=== PATIENT | female | born 1935 | race Caucasian/White ===

== ENCOUNTER → 2016-07-04 | Outpatient (CLI) | payer OTHER ==
[~2016-07-04] MED LIST: ASPI81TA27 PO; LEVO112T4 PO; LISI-646 PO; NOR5T PO
[2016-07-04 09:26] LABS: Basophils # (auto) 0 uL; Basophils % (auto) 0.7 % (0.0-2.0); Eosinophils # (auto) 0.2 uL; Eosinophils % (auto) 3.8 % (0.0-7.0); Hematocrit 44.7 % (36.0-46.0); Hemoglobin 15.2 g/dL (12.2-16.2); Lymphocytes # (auto) 1.9 uL; Lymphocytes % (auto) 31.4 % (10.0-50.0); Mean Corpuscular Hemoglobin 32.4 pg (28.0-32.0); Mean Corpuscular Hgb Conc. 34.1 g/dL (32.0-36.0); Monocytes # (auto) 0.6 uL; Monocytes % (auto) 10.5 % (0.0-12.0); Neutrophils # (auto) 3.2 uL; Neutrophils % (auto) 53.6 % (37.0-80.0); Platelet Count (auto) 288 10^3/uL (140-450); Red Cell Distribution Width 13.4 % (11.6-16.0)
[2016-07-04 09:49] LABS: Urine Bilirubin Negative (Negative); Urine Blood TRACE /uL (Negative); Urine Color Yellow (Yellow); Urine Glucose Normal (Normal); Urine Ketone Negative (Negative); Urine Mucus FEW (None Seen); Urine Nitrite Negative (Negative); Urine RBC 5 /hpf (0 - 4); Urine Squamous Epithelial Cell FEW /hpf (<5); Urine Urobilinogen Normal (Negative); Urine pH 7.5 (5.0-8.0)
[2016-07-04 09:59] LABS: Albumin 3.6 g/dL (3.4-5.0); BUN/Creatinine Ratio 17.4; Bilirubin, Total 0.8 mg/dL (0.2-1.0); Potassium 4.2 mmol/L (3.5-5.1); Total Protein 6.7 g/dL (6.4-8.2)
== END | disposition home or self-care (01) ==
LOC: LAB 08:19
DX: I10 Essential (primary) hypertension (principal)
CPT/HCPCS: 36415; 80053; 80061; 81001; 84443; 85025

== ENCOUNTER → 2017-01-16 | Outpatient (CLI) | payer OTHER ==
[~2017-01-16] MED LIST changes: +HCTZ25T GT; -NOR5T PO
[2017-01-16 08:43] LABS: Urine RBC None Seen /hpf (0 - 4)
[2017-01-16 08:58] LABS: Basophils # (auto) 0.1 uL; Basophils % (auto) 1.1 % (0.0-2.0); Eosinophils # (auto) 0.1 uL; Eosinophils % (auto) 2.5 % (0.0-7.0); Hematocrit 41.9 % (36.0-46.0); Hemoglobin 14.2 g/dL (12.2-16.2); Lymphocytes # (auto) 1.8 uL; Mean Corpuscular Hemoglobin 32.6 pg (28.0-32.0); Mean Corpuscular Hgb Conc. 33.9 g/dL (32.0-36.0); Mean Corpuscular Volume 96.2 fL (80.0-100.0); Mean Platelet Volume 6.6 fL (7.4-10.4); Monocytes # (auto) 0.6 uL; Monocytes % (auto) 10.1 % (0.0-12.0); Neutrophils # (auto) 3.1 uL; Neutrophils % (auto) 55.3 % (37.0-80.0); Nucleated Red Blood Cells % 0.1 %; Platelet Count (auto) 310 10^3/uL (140-450); Red Cell Distribution Width 13.7 % (11.6-16.0); White Blood Cell 5.7 10^3/uL (4.4-10.8)
[2017-01-16 09:19] LABS: Albumin 3.5 g/dL (3.4-5.0); BUN/Creatinine Ratio 25.7; Bilirubin, Total 0.6 mg/dL (0.2-1.0); Potassium 3.9 mmol/L (3.5-5.1); Total Protein 6.5 g/dL (6.4-8.2)
[2017-01-16 09:33] LABS: Urine Bilirubin Negative (Negative); Urine Blood Negative /uL (Negative); Urine Color Yellow (Yellow); Urine Glucose Normal (Normal); Urine Ketone Negative (Negative); Urine Mucus FEW (None Seen); Urine Nitrite Negative (Negative); Urine Squamous Epithelial Cell FEW /hpf (<5); Urine Urobilinogen Normal (Negative); Urine pH 6.5 (5.0-8.0)
== END | disposition home or self-care (01) ==
LOC: LAB 08:26
PROVIDERS: ATTEND Internal Medicine
DX: I12.9 Hypertensive chronic kidney disease with stage 1 through stage 4 chronic kidney disease, or unspecified chronic kidney disease (principal); N18.2 Chronic kidney disease, stage 2 (mild); E89.0 Postprocedural hypothyroidism; Z98.890 Other specified postprocedural states
CPT/HCPCS: 36415; 80053; 80061; 81001; 84443; 85025

== ENCOUNTER → 2017-07-06 | Outpatient (CLI) | payer OTHER | END | disposition home or self-care (01) | LOC: LAB 09:56 | PROVIDERS: ATTEND Internal Medicine | DX: I10 Essential (primary) hypertension (principal); M81.0 Age-related osteoporosis without current pathological fracture | CPT/HCPCS: 36415; 82306; 84132; 84439; 84443 ==

== ENCOUNTER → 2017-07-13 | Outpatient (CLI) | payer OTHER ==
[2017-07-13 09:04] LABS: Basophils # (auto) 0 uL; Eosinophils # (auto) 0.1 uL; Hematocrit 43.7 % (36.0-46.0); Hemoglobin 14.7 g/dL (12.2-16.2); Lymphocytes % (auto) 38.6 % (10.0-50.0); Mean Corpuscular Hemoglobin 32.4 pg (28.0-32.0); Mean Corpuscular Hgb Conc. 33.6 g/dL (32.0-36.0); Mean Corpuscular Volume 96.2 fL (80.0-100.0); Monocytes # (auto) 0.5 uL; Monocytes % (auto) 10.3 % (0.0-12.0); Neutrophils # (auto) 2.4 uL; Neutrophils % (auto) 48.1 % (37.0-80.0); Nucleated Red Blood Cells % 0.1 %; Platelet Count (auto) 237 10^3/uL (140-450); Red Blood Cells 4.54 10^6/uL (4.0-5.20); Red Cell Distribution Width 13.6 % (11.8-14.3); White Blood Cell 5.1 10^3/uL (4.4-10.8)
[2017-07-13 09:10] LABS: Albumin 3.4 g/dL (3.4-5.0); BUN/Creatinine Ratio 21.4; Bilirubin, Direct 0.1 mg/dL (0-0.2); Bilirubin, Total 0.7 mg/dL (0.2-1.0); Calcium 9.2 mg/dL (8.5-10.1); Potassium 4.3 mmol/L (3.5-5.1); Total Protein 6.4 g/dL (6.4-8.2)
== END | disposition home or self-care (01) ==
LOC: LAB 08:28
PROVIDERS: ATTEND Specialist
DX: I10 Essential (primary) hypertension (principal); D64.9 Anemia, unspecified; E78.00 Pure hypercholesterolemia, unspecified; R94.5 Abnormal results of liver function studies
CPT/HCPCS: 36415; 80048; 80061; 80076; 85025

== ENCOUNTER → 2017-09-29 | Outpatient (CLI) | payer OTHER ==
[~2017-09-29] MED LIST changes: +GABA300C10 PO; +HYDR25TA4 PO; +RIV15T PO
[2017-09-29 12:50] LABS: INR 1.22 (0.9-1.15); Partial Thromboplastin Time 40.3 sec (23.78-33.04); Prothrombin Time 12.9 sec (9.27-12.13)
[2017-09-29 13:11] LABS: Basophils # (auto) 0.1 uL; Basophils % (auto) 0.9 % (0.0-2.0); Eosinophils # (auto) 0.1 uL; Eosinophils % (auto) 1.8 % (0.0-7.0); Hematocrit 43.7 % (36.0-46.0); Hemoglobin 14.9 g/dL (12.2-16.2); Lymphocytes # (auto) 1.8 uL; Lymphocytes % (auto) 32.7 % (10.0-50.0); Mean Corpuscular Hemoglobin 33.5 pg (28.0-32.0); Mean Corpuscular Hgb Conc. 34.2 g/dL (32.0-36.0); Mean Corpuscular Volume 97.9 fL (80.0-100.0); Monocytes # (auto) 0.5 uL; Monocytes % (auto) 9.5 % (0.0-12.0); Neutrophils # (auto) 3.1 uL; Neutrophils % (auto) 55.1 % (37.0-80.0); Platelet Count (auto) 273 10^3/uL (140-450); Red Blood Cells 4.46 10^6/uL (4.0-5.20); Red Cell Distribution Width 14.2 % (11.8-14.3); White Blood Cell 5.7 10^3/uL (4.4-10.8)
[2017-09-29 13:49] LABS: Urine Bacteria FEW /hpf (None Seen); Urine Blood Negative /uL (Negative); Urine Specific Gravity 1.017 (1.001-1.035); Urine WBC 27 /hpf (0 - 5)
[2017-09-29 14:01] LABS: BUN/Creatinine Ratio 15.3; Calcium 8.8 mg/dL (8.5-10.1); Potassium 3.7 mmol/L (3.5-5.1)
== END | disposition home or self-care (01) ==
LOC: LAB 10:34
PROVIDERS: ATTEND Specialist
DX: I12.9 Hypertensive chronic kidney disease with stage 1 through stage 4 chronic kidney disease, or unspecified chronic kidney disease (principal); N18.2 Chronic kidney disease, stage 2 (mild); D63.1 Anemia in chronic kidney disease; R31.9 Hematuria, unspecified; R79.1 Abnormal coagulation profile; E78.00 Pure hypercholesterolemia, unspecified
CPT/HCPCS: 36415; 80048; 81001; 85025; 85610; 85730

== ENCOUNTER 2017-10-14 11:35 | Inpatient (IN) | payer OTHER ==
[~2017-10-14] VITALS: Ht 172.7 cm; Wt 79.4 kg
[~2017-10-14 11:35] MED LIST changes: -GABA300C10 PO; -HYDR25TA4 PO; -RIV15T PO
[2017-10-14] MEDS ORDERED: LIDOCAINE 2%HCL (LOCAL ANESTH.) INJ 20ML MDV ONE (11:47)
[2017-10-14] MEDS ORDERED: HEPARIN IN NS 1000Units/500mL 0 ML ONE (11:47)
[2017-10-14] MEDS ORDERED: fentaNYL CITRATE 100 MCG/2 ML VL ONE (13:48)
[2017-10-14] MEDS ORDERED: MIDAZOLAM HCL 1MG/1ML-2 ML VIAL ONE (13:48)
[2017-10-14] MEDS ORDERED: DOXYCYCLINE 100MG/250ML 250 ML IV ONE (14:00)
[2017-10-14] MEDS ORDERED: MORPHINE SULF INJ 2 MG/ML SYRINGE 1ML IV PRN (15:30)
[2017-10-14] MEDS ORDERED: ACETAMINOPHEN 500 MG TAB PO PRN (15:30)
[2017-10-14] MEDS ORDERED: ONDANSETRON HCL 4 MG/2 ML VIAL IV PRN (15:30)
[2017-10-14] MEDS ORDERED: NITROGLYCERIN 0.4 MG SL TAB SL PRN (15:30)
[2017-10-14] MEDS ORDERED: HYDR25TA4 PO (15:34)
[2017-10-14] MEDS ORDERED: RIV15T PO (15:34)
[2017-10-14] MEDS ORDERED: GABA300C10 PO (15:34)
[2017-10-14] MEDS: HYDROcodone-ACET 5/325MG TAB PO PRN ×2 (16:06→19:59)
[2017-10-14 16:30] VITALS: BP 159/66
[2017-10-14 17:18] VITALS: BP 159/66
[2017-10-14] MEDS ORDERED: RIVAROXABAN 15 MG TAB PO SCH (18:00)
[2017-10-14 22:00] VITALS: BP 139/61
[2017-10-14] MEDS: SODIUM CHLOR 0.9% PF (SALINE LOCK) 10ML VIAL/SYR IV SCH (22:29)
[2017-10-14] MEDS: GABAPENTIN 300 MG CAP PO SCH (22:29)
[2017-10-15 05:30] VITALS: BP 132/64
[2017-10-15] MEDS: SODIUM CHLOR 0.9% PF (SALINE LOCK) 10ML VIAL/SYR IV SCH (06:13)
[2017-10-15 06:17] LABS: BUN/Creatinine Ratio 15.5; Calcium 8.1 mg/dL (8.5-10.1)
[2017-10-15] MEDS ORDERED: LEVOTHYROXINE SODIUM 112 MCG TAB PO SCH (07:00)
[2017-10-15] MEDS ORDERED: SOTALOL HCL 80 MG TAB PO ONE (08:15)
[2017-10-15 09:00] VITALS: BP 130/68
[2017-10-15] MEDS ORDERED: HCTZ 25 MG TAB PO SCH (10:00)
[2017-10-15] MEDS: GABAPENTIN 300 MG CAP PO SCH (10:08)
== END 2017-10-15 12:01 | disposition home or self-care (01) | DRG 274 ==
LOC: CATH 11:35 → TELE-CENTR 11:36
PROVIDERS: ADMIT Specialist; ATTEND Specialist
PROC: 02583ZZ Destruction of Conduction Mechanism, Percutaneous Approach (ICD-10-PCS; principal; 2017-10-14)
PROC: 02K83ZZ Map Conduction Mechanism, Percutaneous Approach (ICD-10-PCS; 2017-10-14)
PROC: 4A023FZ Measurement of Cardiac Rhythm, Percutaneous Approach (ICD-10-PCS; 2017-10-14)
PROC: 4A0234Z Measurement of Cardiac Electrical Activity, Percutaneous Approach (ICD-10-PCS; 2017-10-14)
PROC: 4B02XSZ Measurement of Cardiac Pacemaker, External Approach (ICD-10-PCS; 2017-10-14)
DX: I48.92 Unspecified atrial flutter (principal); I10 Essential (primary) hypertension; E03.9 Hypothyroidism, unspecified; I48.0 Paroxysmal atrial fibrillation; Z79.899 Other long term (current) drug therapy; Z95.0 Presence of cardiac pacemaker; Z88.0 Allergy status to penicillin; Z88.2 Allergy status to sulfonamides; Z82.49 Family history of ischemic heart disease and other diseases of the circulatory system
CPT/HCPCS: 36415; 80048; 99152; 99153; J2250; J3490

== ENCOUNTER → 2018-02-16 | Outpatient (CLI) | payer OTHER ==
[~2018-02-16] MED LIST changes: -ASPI81TA27 PO; +GABA300C10 PO; -HCTZ25T GT; +HYDR25TA4 PO; -LISI-646 PO; +RIV15T PO
[2018-02-16 09:46] LABS: Basophils # (auto) 0.1 uL; Basophils % (auto) 1.1 % (0.0-2.0); Eosinophils # (auto) 0.1 uL; Eosinophils % (auto) 1.7 % (0.0-7.0); Hematocrit 44.5 % (36.0-46.0); Hemoglobin 15.3 g/dL (12.2-16.2); Lymphocytes % (auto) 35.4 % (10.0-50.0); Mean Corpuscular Hemoglobin 33.6 pg (28.0-32.0); Mean Corpuscular Hgb Conc. 34.4 g/dL (32.0-36.0); Mean Corpuscular Volume 97.6 fL (80.0-100.0); Monocytes # (auto) 0.6 uL; Neutrophils # (auto) 2.9 uL; Neutrophils % (auto) 51.8 % (37.0-80.0); Nucleated Red Blood Cells % 0.1 %; Platelet Count (auto) 273 10^3/uL (140-450); Red Blood Cells 4.56 10^6/uL (4.0-5.20); Red Cell Distribution Width 13.9 % (11.8-14.3); White Blood Cell 5.6 10^3/uL (4.4-10.8)
[2018-02-16 10:05] LABS: Potassium 4.3 mmol/L (3.5-5.1)
[2018-02-16 10:12] LABS: Albumin 3.3 g/dL (3.4-5.0); BUN/Creatinine Ratio 16.2; Calcium 8.5 mg/dL (8.5-10.1)
[2018-02-16 10:34] LABS: Bilirubin, Direct 0.2 mg/dL (0-0.2); Bilirubin, Total 0.9 mg/dL (0.2-1.0); Total Protein 6.5 g/dL (6.4-8.2)
== END | disposition home or self-care (01) ==
LOC: LAB 09:10
PROVIDERS: ATTEND Specialist
DX: I10 Essential (primary) hypertension (principal); D64.9 Anemia, unspecified; E78.2 Mixed hyperlipidemia; R94.5 Abnormal results of liver function studies
CPT/HCPCS: 36415; 80048; 80061; 80076; 85025

== ENCOUNTER → 2018-06-18 | Outpatient (CLI) | payer OTHER ==
[2018-06-18 10:27] LABS: Basophils # (auto) 0.1 uL; Basophils % (auto) 1.3 % (0.0-2.0); Eosinophils # (auto) 0.1 uL; Eosinophils % (auto) 2.6 % (0.0-7.0); Hematocrit 44.3 % (36.0-46.0); Lymphocytes # (auto) 1.4 uL; Mean Corpuscular Hemoglobin 33.6 pg (28.0-32.0); Mean Corpuscular Hgb Conc. 33.8 g/dL (32.0-36.0); Mean Corpuscular Volume 99.2 fL (80.0-100.0); Monocytes # (auto) 0.5 uL; Neutrophils # (auto) 2.3 uL; Neutrophils % (auto) 52.1 % (37.0-80.0); Nucleated Red Blood Cells % 0.1 %; Platelet Count (auto) 206 10^3/uL (140-450); Red Blood Cells 4.47 10^6/uL (4.0-5.20); Red Cell Distribution Width 13.8 % (11.8-14.3); White Blood Cell 4.4 10^3/uL (4.4-10.8)
[2018-06-18 13:07] LABS: Potassium 4.3 mmol/L (3.5-5.1)
[2018-06-18 13:24] LABS: Albumin 3.2 g/dL (3.4-5.0); BUN/Creatinine Ratio 12.5; Bilirubin, Direct 0.1 mg/dL (0-0.2); Bilirubin, Total 0.6 mg/dL (0.2-1.0); Calcium 8.8 mg/dL (8.5-10.1)
== END | disposition home or self-care (01) ==
LOC: LAB 09:26
PROVIDERS: ATTEND Specialist
DX: E11.9 Type 2 diabetes mellitus without complications (principal); I10 Essential (primary) hypertension; E78.5 Hyperlipidemia, unspecified; E03.9 Hypothyroidism, unspecified; D64.9 Anemia, unspecified; R94.5 Abnormal results of liver function studies
CPT/HCPCS: 36415; 80048; 80061; 80076; 83036; 84443; 85025

== ENCOUNTER → 2018-09-16 | Outpatient (CLI) | payer OTHER | END | disposition home or self-care (01) | LOC: LAB 09:50 | PROVIDERS: ATTEND Podiatrist Foot & Ankle Surgery | DX: I73.9 Peripheral vascular disease, unspecified (principal) | CPT/HCPCS: 36415; 85379 ==

== ENCOUNTER → 2018-10-12 | Outpatient (CLI) | payer OTHER ==
[2018-10-12 09:13] LABS: Basophils # (auto) 0 uL; Basophils % (auto) 0.9 % (0.0-2.0); Eosinophils # (auto) 0.1 uL; Hematocrit 42.6 % (36.0-46.0); Hemoglobin 14.3 g/dL (12.2-16.2); Lymphocytes % (auto) 42.6 % (10.0-50.0); Mean Corpuscular Hemoglobin 32.9 pg (28.0-32.0); Mean Corpuscular Hgb Conc. 33.5 g/dL (32.0-36.0); Mean Corpuscular Volume 98.3 fL (80.0-100.0); Monocytes # (auto) 0.4 uL; Monocytes % (auto) 9.8 % (0.0-12.0); Neutrophils # (auto) 2.1 uL; Neutrophils % (auto) 44.7 % (37.0-80.0); Platelet Count (auto) 209 10^3/uL (140-450); Red Blood Cells 4.34 10^6/uL (4.0-5.20); Red Cell Distribution Width 13.1 % (11.8-14.3); White Blood Cell 4.6 10^3/uL (4.4-10.8)
[2018-10-12 09:47] LABS: Albumin 3.4 g/dL (3.4-5.0); Calcium 8.8 mg/dL (8.5-10.1); Potassium 4.6 mmol/L (3.5-5.1)
[2018-10-12 09:53] LABS: Bilirubin, Direct 0.2 mg/dL (0-0.2); Bilirubin, Total 0.8 mg/dL (0.2-1.0); Total Protein 6.3 g/dL (6.4-8.2)
== END | disposition home or self-care (01) ==
LOC: LAB 08:46
PROVIDERS: ATTEND Specialist
DX: E78.5 Hyperlipidemia, unspecified (principal); E03.9 Hypothyroidism, unspecified; E11.9 Type 2 diabetes mellitus without complications; I10 Essential (primary) hypertension; D64.9 Anemia, unspecified; R94.5 Abnormal results of liver function studies
CPT/HCPCS: 36415; 80048; 80061; 80076; 83036; 84443; 85025

== ENCOUNTER → 2018-12-23 | Outpatient (CLI) | payer OTHER ==
[2018-12-23 12:34] LABS: Urine Bacteria FEW /hpf (None Seen); Urine Blood Negative /uL (Negative); Urine Specific Gravity 1.016 (1.001-1.035); Urine WBC 3 /hpf (0 - 5)
[2018-12-23 13:08] LABS: Free T4 (Free Thyroxine) 1.71 ng/dL (0.89-1.76)
[2018-12-23 13:09] LABS: Folate (Folic Acid) 14.42 ng/mL (5.38-24)
[2018-12-24 05:07] LABS: RPR Non Reactive (Non Reactive)
== END | disposition home or self-care (01) ==
LOC: LAB 11:56
PROVIDERS: ATTEND Internal Medicine
DX: R25.2 Cramp and spasm (principal); R43.8 Other disturbances of smell and taste
CPT/HCPCS: 36415; 81001; 82550; 82607; 82746; 84439; 84443; 86592

== ENCOUNTER → 2019-02-16 | Outpatient (CLI) | payer OTHER ==
[2019-02-16 11:03] LABS: Basophils # (auto) 0.1 uL; Basophils % (auto) 1.2 % (0.0-2.0); Eosinophils # (auto) 0.1 uL; Eosinophils % (auto) 2.4 % (0.0-7.0); Hemoglobin 14.3 g/dL (12.2-16.2); Lymphocytes # (auto) 1.4 uL; Lymphocytes % (auto) 30.6 % (10.0-50.0); Mean Corpuscular Hemoglobin 33.4 pg (28.0-32.0); Mean Corpuscular Hgb Conc. 33.4 g/dL (32.0-36.0); Mean Corpuscular Volume 100.2 fL (80.0-100.0); Monocytes # (auto) 0.5 uL; Monocytes % (auto) 11.4 % (0.0-12.0); Neutrophils # (auto) 2.6 uL; Neutrophils % (auto) 54.4 % (37.0-80.0); Nucleated Red Blood Cells % 0.1 %; Platelet Count (auto) 229 10^3/uL (140-450); Red Blood Cells 4.29 10^6/uL (4.0-5.20); Red Cell Distribution Width 14.2 % (11.8-14.3); White Blood Cell 4.7 10^3/uL (4.4-10.8)
[2019-02-16 11:31] LABS: Albumin 3.5 g/dL (3.4-5.0); BUN/Creatinine Ratio 11.9; Calcium 8.7 mg/dL (8.5-10.1); Potassium 4.6 mmol/L (3.5-5.1)
[2019-02-16 11:33] LABS: Bilirubin, Total 0.7 mg/dL (0.2-1.0); Total Protein 6.5 g/dL (6.4-8.2)
== END | disposition home or self-care (01) ==
LOC: LAB 10:36
PROVIDERS: ATTEND Internal Medicine
DX: E03.9 Hypothyroidism, unspecified (principal)
CPT/HCPCS: 36415; 80053; 83880; 84439; 84443; 85025; 85652

== ENCOUNTER → 2019-04-05 | Outpatient (CLI) | payer OTHER ==
[2019-04-05 10:13] LABS: Basophils # (auto) 0.1 uL; Eosinophils # (auto) 0.1 uL; Hemoglobin 15.6 g/dL (12.2-16.2); Mean Corpuscular Hemoglobin 34.1 pg (28.0-32.0); Mean Corpuscular Hgb Conc. 33.9 g/dL (32.0-36.0); Neutrophils # (auto) 1.9 uL; Nucleated Red Blood Cells % 0.1 %
[2019-04-05 10:15] LABS: Basophils % (auto) 1.5 % (0.0-2.0); Eosinophils % (auto) 1.9 % (0.0-7.0); Lymphocytes # (auto) 1.5 uL; Lymphocytes % (auto) 37.7 % (10.0-50.0); Mean Corpuscular Volume 100.5 fL (80.0-100.0); Monocytes # (auto) 0.4 uL; Monocytes % (auto) 11.1 % (0.0-12.0); Neutrophils % (auto) 47.8 % (37.0-80.0); Platelet Count (auto) 234 10^3/uL (140-450); Red Blood Cells 4.58 10^6/uL (4.0-5.20); Red Cell Distribution Width 13.4 % (11.8-14.3)
[2019-04-05 10:28] LABS: Albumin 3.8 g/dL (3.4-5.0); Calcium 8.7 mg/dL (8.5-10.1)
[2019-04-05 10:32] LABS: BUN/Creatinine Ratio 16.7; Bilirubin, Direct 0.3 mg/dL (0-0.2); Bilirubin, Total 1.1 mg/dL (0.2-1.0)
== END | disposition home or self-care (01) ==
LOC: LAB 09:34
PROVIDERS: ATTEND Specialist
DX: I10 Essential (primary) hypertension (principal); R94.5 Abnormal results of liver function studies; D64.9 Anemia, unspecified; E11.9 Type 2 diabetes mellitus without complications; E78.5 Hyperlipidemia, unspecified; E03.9 Hypothyroidism, unspecified
CPT/HCPCS: 36415; 80048; 80061; 80076; 83036; 84443; 85025

== ENCOUNTER → 2019-10-04 | Outpatient (CLI) | payer OTHER ==
[2019-10-04 10:30] LABS: Urine WBC None Seen /hpf (0 - 5)
[2019-10-04 10:53] LABS: Urine Bacteria NONE SEEN /hpf (None Seen); Urine Blood Negative /uL (Negative); Urine Hyaline Cast FEW /lpf (0 - 2); Urine Specific Gravity 1.005 (1.001-1.035)
[2019-10-04 11:13] LABS: Magnesium 2.3 mg/dL (1.6-2.6); Potassium 4.6 mmol/L (3.5-5.1)
== END | disposition home or self-care (01) ==
LOC: LAB 10:18
PROVIDERS: ATTEND Internal Medicine
DX: D75.89 Other specified diseases of blood and blood-forming organs (principal); I50.32 Chronic diastolic (congestive) heart failure
CPT/HCPCS: 36415; 81001; 82607; 83735; 84132

== ENCOUNTER → 2019-12-20 | Outpatient (CLI) | payer OTHER ==
[2019-12-20 09:10] LABS: Albumin 3.4 g/dL (3.4-5.0); Potassium 3.9 mmol/L (3.5-5.1)
[2019-12-20 09:16] LABS: BUN/Creatinine Ratio 12.7; Bilirubin, Direct 0.3 mg/dL (0-0.2); Bilirubin, Total 0.9 mg/dL (0.2-1.0); Calcium 9.2 mg/dL (8.5-10.1); Total Protein 6.4 g/dL (6.4-8.2)
== END | disposition home or self-care (01) ==
LOC: LAB 08:26
PROVIDERS: ATTEND Specialist
DX: I10 Essential (primary) hypertension (principal); E11.9 Type 2 diabetes mellitus without complications; D64.9 Anemia, unspecified; E78.5 Hyperlipidemia, unspecified; E03.9 Hypothyroidism, unspecified; R94.5 Abnormal results of liver function studies
CPT/HCPCS: 36415; 80048; 80061; 80076; 83036; 84443

== ENCOUNTER → 2020-02-07 | Outpatient (CLI) | payer OTHER ==
[2020-02-07 12:22] LABS: Basophils # (auto) 0.1 10 ^3/uL (0-0.2); Basophils % (auto) 1.5 % (0.0-2.0); Eosinophils # (auto) 0.1 10 ^3/uL (0-0.8); Eosinophils % (auto) 2.1 % (0.0-7.0); Hematocrit 43.7 % (36.0-46.0); Hemoglobin 14.6 g/dL (12.2-16.2); Lymphocytes # (auto) 1.6 10 ^3/uL (0.4-5.4); Lymphocytes % (auto) 32.7 % (10.0-50.0); Mean Corpuscular Hemoglobin 33.6 pg (28.0-32.0); Mean Corpuscular Hgb Conc. 33.5 g/dL (32.0-36.0); Mean Corpuscular Volume 100.4 fL (80.0-100.0); Monocytes # (auto) 0.6 10 ^3/uL (0-1.3); Monocytes % (auto) 12.1 % (0.0-12.0); Neutrophils # (auto) 2.6 10 ^3/uL (1.6-8.6); Neutrophils % (auto) 51.6 % (37.0-80.0); Platelet Count (auto) 242 10^3/uL (140-450); Red Blood Cells 4.35 10^6/uL (4.0-5.20); Red Cell Distribution Width 13.2 % (11.8-14.3)
[2020-02-07 13:18] LABS: Potassium 4.3 mmol/L (3.5-5.1)
[2020-02-07 13:26] LABS: Albumin 3.4 g/dL (3.4-5.0); Bilirubin, Total 0.8 mg/dL (0.2-1.0); Calcium 8.4 mg/dL (8.5-10.1); Total Protein 6.2 g/dL (6.4-8.2)
== END | disposition home or self-care (01) ==
LOC: LAB 12:05
PROVIDERS: ATTEND Internal Medicine
DX: I50.32 Chronic diastolic (congestive) heart failure (principal); I48.0 Paroxysmal atrial fibrillation
CPT/HCPCS: 36415; 80053; 84439; 84443; 85025

== ENCOUNTER → 2020-03-12 | Outpatient (CLI) | payer OTHER ==
[2020-03-12 15:14] LABS: Basophils # (auto) 0 10 ^3/uL (0-0.2); Basophils % (auto) 0.5 % (0.0-2.0); Eosinophils # (auto) 0.2 10 ^3/uL (0-0.8); Eosinophils % (auto) 2.3 % (0.0-7.0); Hemoglobin 15.1 g/dL (12.2-16.2); Lymphocytes # (auto) 2.1 10 ^3/uL (0.4-5.4); Lymphocytes % (auto) 27.7 % (10.0-50.0); Mean Corpuscular Hemoglobin 32.8 pg (28.0-32.0); Mean Corpuscular Hgb Conc. 32.8 g/dL (32.0-36.0); Mean Corpuscular Volume 100.1 fL (80.0-100.0); Monocytes # (auto) 0.8 10 ^3/uL (0-1.3); Neutrophils # (auto) 4.5 10 ^3/uL (1.6-8.6); Neutrophils % (auto) 59.5 % (37.0-80.0); Nucleated Red Blood Cells % 0.2 %; Platelet Count (auto) 278 10^3/uL (140-450); Red Cell Distribution Width 13.4 % (11.8-14.3); White Blood Cell 7.6 10^3/uL (4.4-10.8)
[2020-03-12 15:46] LABS: Albumin 3.5 g/dL (3.4-5.0); Calcium 8.9 mg/dL (8.5-10.1); Potassium 4.1 mmol/L (3.5-5.1)
[2020-03-12 15:49] LABS: Bilirubin, Total 0.6 mg/dL (0.2-1.0); Total Protein 6.4 g/dL (6.4-8.2)
[2020-03-12 22:40] LABS: BUN/Creatinine Ratio 19.7
== END | disposition home or self-care (01) ==
LOC: LAB 15:02
PROVIDERS: ATTEND Internal Medicine
DX: K29.70 Gastritis, unspecified, without bleeding (principal); R10.9 Unspecified abdominal pain
CPT/HCPCS: 36415; 80053; 82150; 83690; 85025

== ENCOUNTER 2020-05-29 10:53 | Inpatient (IN) | payer OTHER ==
[~2020-05-29] VITALS: Ht 172.7 cm; Wt 81.8 kg
[2020-05-29 11:57] LABS: Potassium 3.6 mmol/L (3.5-5.1)
[2020-05-29 12:02] LABS: Basophils # (auto) 0.1 10 ^3/uL (0-0.2); Basophils % (auto) 0.5 % (0.0-2.0); Eosinophils # (auto) 0.1 10 ^3/uL (0-0.8)
[2020-05-29 12:07] LABS: Eosinophils % (auto) 0.7 % (0.0-7.0); Hematocrit 42.5 % (36.0-46.0); Hemoglobin 14.8 g/dL (12.2-16.2); Lymphocytes # (auto) 1.2 10 ^3/uL (0.4-5.4); Lymphocytes % (auto) 11.3 % (10.0-50.0); Mean Corpuscular Hemoglobin 33.3 pg (28.0-32.0); Mean Corpuscular Hgb Conc. 34.7 g/dL (32.0-36.0); Neutrophils # (auto) 8.1 10 ^3/uL (1.6-8.6); Neutrophils % (auto) 77.5 % (37.0-80.0); Red Blood Cells 4.43 10^6/uL (4.0-5.20); Red Cell Distribution Width 13.8 % (11.8-14.3); White Blood Cell 10.4 10^3/uL (4.4-10.8)
[2020-05-29 12:09] LABS: Albumin 2.9 g/dL (3.4-5.0); BUN/Creatinine Ratio 10.2; Bilirubin, Total 1.4 mg/dL (0.2-1.0); Calcium 9.3 mg/dL (8.5-10.1); Total Protein 7.8 g/dL (6.4-8.2)
[2020-05-29] MEDS ORDERED: MORPHINE SULFATE INJECTION 2 MG/ML SYRG IV PRN ×3 (13:45→15:15)
[2020-05-29] MEDS ORDERED: NITROGLYCERIN 0.4 MG SL TAB SL PRN ×2 (13:45→15:15)
[2020-05-29] MEDS ORDERED: POTA10TA32 PO (14:14)
[2020-05-29] MEDS ORDERED: PANT40TA2 PO (14:14)
[2020-05-29] MEDS ORDERED: FURO40TA4 PO (14:14)
[2020-05-29] MEDS ORDERED: LEVO112T4 PO (14:23)
[2020-05-29] MEDS ORDERED: CHOL-17 PO (14:23)
[2020-05-29] MEDS ORDERED: ASCO500T11 PO (14:23)
[2020-05-29] MEDS ORDERED: RIV15T PO (14:23)
[2020-05-29] MEDS ORDERED: GABA300C10 PO (14:24)
[2020-05-29] MEDS ORDERED: SOTA80TA7 PO (14:28)
[2020-05-29] MEDS ORDERED: PRAV20TA3 PO (14:30)
[2020-05-29] MEDS ORDERED: POM PO (14:37)
[2020-05-29] MEDS ORDERED: LACTATED RINGER'S 1,000 ML IV ONE (15:15)
[2020-05-29] MEDS ORDERED: ALUM & MAG HYDROX-SIMETH LIQ(MAALOX) 30 ML PO ONE (15:15)
[2020-05-29] MEDS ORDERED: HYDROcodone-ACET 5/325MG TAB PO PRN (15:15)
[2020-05-29] MEDS ORDERED: ONDANSETRON HCL 4 MG/2 ML VIAL IV PRN (15:15)
[2020-05-29] MEDS ORDERED: LORazepam 0.5 MG TAB PO PRN (15:15)
[2020-05-29] MEDS ORDERED: MORPHINE SULFATE 4 MG/ML SYR/VIAL IV PRN (15:15)
[2020-05-29] MEDS ORDERED: METOPROLOL TARTRATE 25 MG TAB PO ONE (15:15)
[2020-05-29] MEDS: SODIUM CHLORIDE 0.9% 1,000 ML IV SCH (16:08)
[2020-05-29] MEDS: RIVAROXABAN 15 MG TAB PO SCH (18:00)
[2020-05-29] MEDS: FUROSEMIDE 20 MG/2 ML VIAL IV SCH (18:20)
[2020-05-29] MEDS: SOTALOL HCL 80 MG TAB PO SCH (22:00)
[2020-05-29] MEDS: GABAPENTIN 300 MG CAP PO SCH (22:19)
[2020-05-29] MEDS: ATORVASTATIN 20 MG TAB PO SCH (22:19)
[2020-05-29] MEDS: FAMOTIDINE 20 MG TAB PO SCH (22:19)
[2020-05-30 00:01] LABS: Amphetamine Screen, Urine NEGATIVE (NEGATIVE); Barbiturate Scree,Urine NEGATIVE (NEGATIVE); Benzodiazephine Screen, Urine NEGATIVE (NEGATIVE); Cannabinoid Screen, Urine NEGATIVE (NEGATIVE); Cocaine Screen, Urine NEGATIVE (NEGATIVE); Opiate Scree,Urine NEGATIVE (NEGATIVE); Phencyclidine Screen, Urine NEGATIVE (NEGATIVE)
[2020-05-30 00:30] LABS: Urine Amorphous Crystal FEW /hpf (None Seen); Urine Bacteria MANY /hpf (None Seen); Urine Blood Negative /uL (Negative); Urine Hyaline Cast FEW /lpf (0 - 2); Urine Specific Gravity 1.014 (1.001-1.035); Urine WBC 25 /hpf (0 - 5)
[2020-05-30 05:00] VITALS: BP 121/64
[2020-05-30] MEDS: FUROSEMIDE 20 MG/2 ML VIAL IV SCH (06:00)
[2020-05-30] MEDS: LEVOTHYROXINE SODIUM 112 MCG TAB PO SCH (06:48)
[2020-05-30 08:00] VITALS: BP 132/79
[2020-05-30 08:23] VITALS: BP 132/79
[2020-05-30 09:19] LABS: Basophils # (auto) 0.1 10 ^3/uL (0-0.2); Basophils % (auto) 0.8 % (0.0-2.0); Eosinophils # (auto) 0.1 10 ^3/uL (0-0.8); Eosinophils % (auto) 1.3 % (0.0-7.0); Hematocrit 37.1 % (36.0-46.0); Hemoglobin 12.6 g/dL (12.2-16.2); Lymphocytes # (auto) 1.2 10 ^3/uL (0.4-5.4); Lymphocytes % (auto) 16.7 % (10.0-50.0); Mean Corpuscular Hemoglobin 32.5 pg (28.0-32.0); Mean Corpuscular Volume 95.6 fL (80.0-100.0); Monocytes # (auto) 1.1 10 ^3/uL (0-1.3); Monocytes % (auto) 14.7 % (0.0-12.0); Neutrophils # (auto) 4.8 10 ^3/uL (1.6-8.6); Neutrophils % (auto) 66.5 % (37.0-80.0); Nucleated Red Blood Cells % 0.1 %; Red Blood Cells 3.88 10^6/uL (4.0-5.20); Red Cell Distribution Width 14.1 % (11.8-14.3); White Blood Cell 7.2 10^3/uL (4.4-10.8)
[2020-05-30 09:37] LABS: Albumin 2.4 g/dL (3.4-5.0); Calcium 8.2 mg/dL (8.5-10.1); Potassium 3.4 mmol/L (3.5-5.1)
[2020-05-30 09:40] LABS: BUN/Creatinine Ratio 13.6; Bilirubin, Total 1.7 mg/dL (0.2-1.0); Phosphorus 2.7 mg/dL (2.5-4.90); Total Protein 6.3 g/dL (6.4-8.2)
[2020-05-30 09:46] LABS: INR 1.16 (0.9-1.15); Partial Thromboplastin Time 24.9 sec (23.0-31.2)
[2020-05-30] MEDS: POTASSIUM CHL 10 Meq TABLET PO SCH (11:24)
[2020-05-30] MEDS: DOCUSATE SOD 100 MG CAP PO SCH (11:25)
[2020-05-30] MEDS: ASCORBIC ACID 500 MG TAB PO SCH (11:26)
[2020-05-30] MEDS: CHOLECALCIFEROL (VITD3) 1,000UNIT=25mCg TAB PO SCH (11:27)
[2020-05-30] MEDS: SOTALOL HCL 80 MG TAB PO SCH ×2 (11:28→21:59)
[2020-05-30] MEDS ORDERED: cefTRIAXone 1GM/50ML D5W 50 ML IV ONE (11:45)
[2020-05-30] MEDS ORDERED: POTASSIUM CHL 20MEQ/100ML 100 ML IV ONE (11:45)
[2020-05-30] MEDS ORDERED: IOHEXOL 300 MG/ML 100ML BOTTLE IJ ONE (11:55)
[2020-05-30] MEDS ORDERED: DOXYCYCLINE 100 MG TAB/CAP PO ONE (12:00)
[2020-05-30] MEDS: SODIUM CHLORIDE 0.9% 1,000 ML IV SCH (15:15)
[2020-05-30 16:16] VITALS: BP 111/59
[2020-05-30] MEDS: LEVALBUTEROL HCL 1.25 MG/3 ML NEB NEB SCH ×2 (17:53→23:53)
[2020-05-30 18:02] LABS: INR 1.12 (0.9-1.15); Partial Thromboplastin Time 22.2 sec (23.0-31.2)
[2020-05-30] MEDS: RIVAROXABAN 15 MG TAB PO SCH (19:20)
[2020-05-30 20:00] VITALS: BP 102/49
[2020-05-30] MEDS: MEROPENEM 1GM IVPB 100 ML IV SCH (21:53)
[2020-05-30] MEDS: DOXYCYCLINE 100 MG TAB/CAP PO SCH (21:54)
[2020-05-30] MEDS: FAMOTIDINE 20 MG TAB PO SCH (21:54)
[2020-05-30] MEDS: ATORVASTATIN 20 MG TAB PO SCH (21:54)
[2020-05-30] MEDS: GABAPENTIN 300 MG CAP PO SCH (21:54)
[2020-05-30 22:00] VITALS: BP 102/49
[2020-05-31 05:30] VITALS: BP 117/65
[2020-05-31] MEDS: LEVOTHYROXINE SODIUM 112 MCG TAB PO SCH (06:41)
[2020-05-31] MEDS: LEVALBUTEROL HCL 1.25 MG/3 ML NEB NEB SCH ×2 (07:11→13:09)
[2020-05-31 08:00] VITALS: BP 105/62
[2020-05-31] MEDS ORDERED: cefTRIAXone 1GM/50ML D5W 50 ML IV SCH (09:00)
[2020-05-31] MEDS: SOTALOL HCL 80 MG TAB PO SCH (10:11)
[2020-05-31] MEDS: DOCUSATE SOD 100 MG CAP PO SCH (10:12)
[2020-05-31] MEDS: DOXYCYCLINE 100 MG TAB/CAP PO SCH (10:12)
[2020-05-31] MEDS: ASCORBIC ACID 500 MG TAB PO SCH (10:12)
[2020-05-31] MEDS: CHOLECALCIFEROL (VITD3) 1,000UNIT=25mCg TAB PO SCH (10:13)
[2020-05-31] MEDS: POTASSIUM CHL 10 Meq TABLET PO SCH (10:13)
[2020-05-31] MEDS: MEROPENEM 1GM IVPB 100 ML IV SCH (11:18)
[2020-05-31 13:38] VITALS: BP 105/62
[2020-05-31 15:48] VITALS: BP 105/62
[2020-06-01] MEDS ORDERED: LEVO-28 PO (15:55)
== END 2020-05-31 15:53 | disposition home or self-care (01) | DRG 689 ==
LOC: ER 10:53 → TELE 10:54 → TELE-CENTR 05-30 04:05
PROVIDERS: ADMIT Hospitalist; ATTEND Internal Medicine
PROC: 4B02XSZ Measurement of Cardiac Pacemaker, External Approach (ICD-10-PCS; principal; 2020-05-30)
DX: N30.00 Acute cystitis without hematuria (principal); J18.9 Pneumonia, unspecified organism; E87.1 Hypo-osmolality and hyponatremia; I13.0 Hypertensive heart and chronic kidney disease with heart failure and stage 1 through stage 4 chronic kidney disease, or unspecified chronic kidney disease; M48.56XA Collapsed vertebra, not elsewhere classified, lumbar region, initial encounter for fracture; R55 Syncope and collapse; N18.2 Chronic kidney disease, stage 2 (mild); E78.5 Hyperlipidemia, unspecified; I48.0 Paroxysmal atrial fibrillation; I49.5 Sick sinus syndrome; N28.89 Other specified disorders of kidney and ureter; I50.9 Heart failure, unspecified; M16.10 Unilateral primary osteoarthritis, unspecified hip; Z96.641 Presence of right artificial hip joint; Z96.651 Presence of right artificial knee joint; Z79.899 Other long term (current) drug therapy; Z82.49 Family history of ischemic heart disease and other diseases of the circulatory system; Z85.850 Personal history of malignant neoplasm of thyroid; Z90.49 Acquired absence of other specified parts of digestive tract; Z95.0 Presence of cardiac pacemaker; Z90.710 Acquired absence of both cervix and uterus; Z88.0 Allergy status to penicillin; Z88.2 Allergy status to sulfonamides
CPT/HCPCS: 36415; 70450; 71045; 74176; 74178; 76775; 80053; 80307; 81001; 82306; 83036; 83690; 83735; 83880; 84100; 84484; 85025; 85610; 85730; 86301; 86850; 86900; 86901; 87040; 87086; 87426; 93005; 93306; 94640; G0378; J0696; J2185; J3480

== ENCOUNTER → 2020-07-24 | Outpatient (CLI) | payer OTHER ==
[~2020-07-24] MED LIST changes: +ASCO500T11 PO; +CHOL1000 PO; +FURO40TA4 PO; -HYDR25TA4 PO; +LEVO-28 PO; +PANT40TA2 PO; +POTA10TA32 PO; +PRAV20TA3 PO; -RIV15T PO; +SOTA80TA7 PO
== END | disposition home or self-care (01) ==
LOC: LAB 10:05
PROVIDERS: ATTEND Internal Medicine
DX: N15.1 Renal and perinephric abscess (principal)
CPT/HCPCS: 36415; 82565; 84520

== ENCOUNTER → 2020-09-11 | Outpatient (CLI) | payer OTHER ==
[~2020-09-11] MED LIST changes: +CHOL-17 PO; -CHOL1000 PO
[2020-09-11 10:11] LABS: Basophils # (auto) 0 10 ^3/uL (0-0.2); Basophils % (auto) 0.8 % (0.0-2.0); Eosinophils # (auto) 0.1 10 ^3/uL (0-0.8); Lymphocytes # (auto) 1.8 10 ^3/uL (0.4-5.4); Lymphocytes % (auto) 28.7 % (10.0-50.0); Mean Corpuscular Hemoglobin 33.4 pg (28.0-32.0); Mean Corpuscular Hgb Conc. 33.9 g/dL (32.0-36.0); Mean Corpuscular Volume 98.5 fL (80.0-100.0); Monocytes # (auto) 0.6 10 ^3/uL (0-1.3); Monocytes % (auto) 9.5 % (0.0-12.0); Neutrophils # (auto) 3.8 10 ^3/uL (1.6-8.6); Platelet Count (auto) 250 10^3/uL (140-450); Red Blood Cells 4.77 10^6/uL (4.0-5.20); Red Cell Distribution Width 13.8 % (11.8-14.3); White Blood Cell 6.3 10^3/uL (4.4-10.8)
[2020-09-11 10:36] LABS: Albumin 3.4 g/dL (3.4-5.0); Potassium 4.2 mmol/L (3.5-5.1)
[2020-09-11 10:43] LABS: BUN/Creatinine Ratio 22.6; Bilirubin, Direct 0.2 mg/dL (0-0.2); Bilirubin, Total 0.9 mg/dL (0.2-1.0); Total Protein 6.7 g/dL (6.4-8.2)
== END | disposition home or self-care (01) ==
LOC: LAB 09:45
PROVIDERS: ATTEND Specialist
DX: I10 Essential (primary) hypertension (principal); E11.9 Type 2 diabetes mellitus without complications; R94.5 Abnormal results of liver function studies; D64.9 Anemia, unspecified; E78.5 Hyperlipidemia, unspecified; E03.9 Hypothyroidism, unspecified
CPT/HCPCS: 36415; 80048; 80061; 80076; 83036; 84443; 85025

== ENCOUNTER → 2020-10-31 | Outpatient (CLI) | payer OTHER | END | disposition home or self-care (01) | LOC: LAB 14:00 | PROVIDERS: ATTEND Internal Medicine | DX: R10.9 Unspecified abdominal pain (principal) | CPT/HCPCS: 36415; 82565; 84520 ==

== ENCOUNTER → 2020-12-24 | Outpatient (CLI) | payer OTHER ==
[2020-12-24 09:07] LABS: Basophils # (auto) 0 10 ^3/uL (0-0.2); Basophils % (auto) 1.1 % (0.0-2.0); Eosinophils # (auto) 0.1 10 ^3/uL (0-0.8); Monocytes # (auto) 0.5 10 ^3/uL (0-1.3); White Blood Cell 4.5 10^3/uL (4.4-10.8)
[2020-12-24 09:09] LABS: Eosinophils % (auto) 2.4 % (0.0-7.0); Hematocrit 44.2 % (36.0-46.0); Lymphocytes # (auto) 1.7 10 ^3/uL (0.4-5.4); Mean Corpuscular Hemoglobin 34.4 pg (28.0-32.0); Mean Corpuscular Hgb Conc. 33.9 g/dL (32.0-36.0); Mean Corpuscular Volume 101.5 fL (80.0-100.0); Monocytes % (auto) 10.3 % (0.0-12.0); Neutrophils # (auto) 2.2 10 ^3/uL (1.6-8.6); Neutrophils % (auto) 49.2 % (37.0-80.0); Red Blood Cells 4.35 10^6/uL (4.0-5.20); Red Cell Distribution Width 13.3 % (11.8-14.3)
[2020-12-24 09:36] LABS: Calcium 9.3 mg/dL (8.5-10.1); Potassium 4.3 mmol/L (3.5-5.1)
[2020-12-24 09:41] LABS: BUN/Creatinine Ratio 13.6; Bilirubin, Direct 0.2 mg/dL (0-0.2); Bilirubin, Total 0.5 mg/dL (0.2-1.0); Total Protein 6.6 g/dL (6.4-8.2)
== END | disposition home or self-care (01) ==
LOC: LAB 08:49
PROVIDERS: ATTEND Specialist
DX: E11.9 Type 2 diabetes mellitus without complications (principal); I10 Essential (primary) hypertension; R94.5 Abnormal results of liver function studies; E03.9 Hypothyroidism, unspecified; E78.5 Hyperlipidemia, unspecified; D64.9 Anemia, unspecified
CPT/HCPCS: 36415; 80048; 80061; 80076; 83036; 84443; 85025

== ENCOUNTER 2021-03-13 06:30 | Day surgery (SDC) | payer OTHER ==
[~2021-03-13] VITALS: Ht 172.7 cm; Wt 74.4 kg
[~2021-03-13 06:30] MED LIST changes: -LEVO-28 PO; +SOTA80TA39 PO; -SOTA80TA7 PO
[2021-03-13] MEDS ORDERED: IODIXANOL 320MG/ML 100ML BTL IV ONE (07:33)
[2021-03-13] MEDS ORDERED: LIDOCAINE 2%HCL (LOCAL ANESTH.) INJ 20ML MDV ONE (07:33)
[2021-03-13] MEDS ORDERED: ANGIOMAX 250 MG VIAL IV ONE (08:02)
[2021-03-13] MEDS ORDERED: fentaNYL CITRATE 100 MCG/2 ML VL ONE (08:03)
[2021-03-13] MEDS ORDERED: VERAPAMIL 2.5MG/ML INJ 2ML VIAL IV ONE ×2 (08:03→08:16)
[2021-03-13] MEDS ORDERED: HEPARIN SODIUM (PORCINE) 5000 UNITS/ML 1ML VIAL ONE ×2 (08:03→08:15)
[2021-03-13] MEDS ORDERED: SODIUM CHL 0.9% 50 ML ONE (08:03)
[2021-03-13] MEDS ORDERED: MIDAZOLAM HCL 2MG/2ML 2ml VIAL (1mg/ml) ONE (08:03)
[2021-03-13] MEDS ORDERED: IOHEXOL 350 MG/ML 100ML IJ ONE (08:51)
[2021-03-13] MEDS ORDERED: ADENOSINE 6 MG/2 ML INJ IV ONE (08:55)
[2021-03-13] MEDS ORDERED: ADENOSINE 90 MG/30 ML INJ IV ONE (08:56)
[2021-03-13] MEDS ORDERED: ONDANSETRON HCL 4 MG/2 ML VIAL IV PRN (09:45)
[2021-03-13] MEDS ORDERED: ACETAMINOPHEN 500 MG TAB PO PRN (09:45)
[2021-03-13] MEDS ORDERED: HYDROcodone-ACET 5/325MG TAB PO PRN (09:45)
[2021-03-13] MEDS ORDERED: FURO40TA4 PO (10:23)
[2021-03-13] MEDS ORDERED: RIV15T PO (10:23)
[2021-03-13] MEDS ORDERED: POTA10TA51 PO (10:23)
[2021-03-13] MEDS ORDERED: GABA300C10 PO (10:26)
== END 2021-03-13 15:30 | disposition home or self-care (01) ==
LOC: CATH 06:30
PROVIDERS: ATTEND Internal Medicine Cardiovascular Disease
DX: R94.39 Abnormal result of other cardiovascular function study (principal); I25.10 Atherosclerotic heart disease of native coronary artery without angina pectoris; I11.0 Hypertensive heart disease with heart failure; I50.9 Heart failure, unspecified; E78.5 Hyperlipidemia, unspecified; I48.92 Unspecified atrial flutter; J44.9 Chronic obstructive pulmonary disease, unspecified; F20.9 Schizophrenia, unspecified; Z82.49 Family history of ischemic heart disease and other diseases of the circulatory system; Z90.710 Acquired absence of both cervix and uterus; Z87.891 Personal history of nicotine dependence; Z95.0 Presence of cardiac pacemaker; Z79.01 Long term (current) use of anticoagulants; Z88.0 Allergy status to penicillin; Z88.2 Allergy status to sulfonamides; Z98.890 Other specified postprocedural states; Z79.899 Other long term (current) drug therapy
CPT/HCPCS: 93458; 93571; C1769; C1887; C1894; J0153; J0583; J1644; J2250; J3010; J7030; Q9967; 99152; 99153

== ENCOUNTER → 2021-03-26 | Outpatient (CLI) | payer OTHER ==
[~2021-03-26] MED LIST changes: -CHOL-17 PO; -POTA10TA32 PO; +POTA10TA51 PO; +RIV15T PO
== END | disposition home or self-care (01) ==
LOC: LAB 15:00
PROVIDERS: ATTEND Family Medicine
DX: L82.1 Other seborrheic keratosis (principal)

== ENCOUNTER → 2021-05-16 | Outpatient (CLI) | payer OTHER ==
[2021-05-16 12:38] LABS: Basophils # (auto) 0.1 10 ^3/uL (0-0.2); Eosinophils # (auto) 0.1 10 ^3/uL (0-0.8); Mean Corpuscular Hgb Conc. 33.8 g/dL (32.0-36.0); Nucleated Red Blood Cells % 0.1 %
[2021-05-16 12:41] LABS: Basophils % (auto) 1.1 % (0.0-2.0); Eosinophils % (auto) 0.9 % (0.0-7.0); Hematocrit 44.2 % (36.0-46.0); Hemoglobin 14.9 g/dL (12.2-16.2); Lymphocytes # (auto) 1.4 10 ^3/uL (0.4-5.4); Lymphocytes % (auto) 23.2 % (10.0-50.0); Mean Corpuscular Hemoglobin 33.7 pg (28.0-32.0); Mean Corpuscular Volume 99.6 fL (80.0-100.0); Monocytes # (auto) 0.6 10 ^3/uL (0-1.3); Neutrophils # (auto) 3.8 10 ^3/uL (1.6-8.6); Neutrophils % (auto) 64.8 % (37.0-80.0); Red Blood Cells 4.43 10^6/uL (4.0-5.20); Red Cell Distribution Width 14.1 % (11.8-14.3); White Blood Cell 5.9 10^3/uL (4.4-10.8)
[2021-05-16 13:11] LABS: Potassium 3.8 mmol/L (3.5-5.1)
[2021-05-16 13:23] LABS: Albumin 3.7 g/dL (3.4-5.0); BUN/Creatinine Ratio 17.4; Bilirubin, Total 1.7 mg/dL (0.2-1.0); Total Protein 6.5 g/dL (6.4-8.2)
== END | disposition home or self-care (01) ==
LOC: LAB 12:01
PROVIDERS: ATTEND Specialist
DX: E11.9 Type 2 diabetes mellitus without complications (principal); D64.9 Anemia, unspecified; E78.5 Hyperlipidemia, unspecified; R68.89 Other general symptoms and signs; E03.9 Hypothyroidism, unspecified
CPT/HCPCS: 36415; 80053; 80061; 83036; 84443; 85025

== ENCOUNTER → 2021-05-17 | Outpatient (CLI) | payer OTHER | END | disposition home or self-care (01) | LOC: LAB 11:00 | PROVIDERS: ATTEND Family Medicine | DX: L57.0 Actinic keratosis (principal) ==

== ENCOUNTER → 2021-06-07 | Outpatient (CLI) | payer OTHER ==
[2021-06-07 09:59] LABS: Urine WBC None Seen /hpf (0 - 5)
[2021-06-07 10:22] LABS: Urine Bacteria NONE SEEN /hpf (None Seen); Urine Blood Negative /uL (Negative); Urine Specific Gravity 1.006 (1.001-1.035)
[2021-06-07 12:09] LABS: Potassium 3.4 mmol/L (3.5-5.1)
[2021-06-07 12:20] LABS: BUN/Creatinine Ratio 13.7; Calcium 8.7 mg/dL (8.5-10.1)
== END | disposition home or self-care (01) ==
LOC: LAB 09:45
PROVIDERS: ATTEND Urology
DX: N39.0 Urinary tract infection, site not specified (principal)
CPT/HCPCS: 36415; 80048; 81001; 87086

== ENCOUNTER 2021-07-24 15:23 | Inpatient (IN) | payer OTHER ==
[~2021-07-24] VITALS: Ht 172.7 cm; Wt 83.5 kg
[2021-07-24] MEDS ORDERED: ACETAMINOPHEN 500 MG TAB PO ONE (19:15)
[2021-07-24 19:53] LABS: Basophils # (auto) 0.1 10 ^3/uL (0-0.2); Hemoglobin 15.3 g/dL (12.2-16.2); Mean Corpuscular Hemoglobin 34.1 pg (28.0-32.0)
[2021-07-24 19:55] LABS: Basophils % (auto) 0.6 % (0.0-2.0); Eosinophils # (auto) 0.1 10 ^3/uL (0-0.8); Eosinophils % (auto) 0.5 % (0.0-7.0); Hematocrit 44.4 % (36.0-46.0); Lymphocytes # (auto) 1.8 10 ^3/uL (0.4-5.4); Lymphocytes % (auto) 16.2 % (10.0-50.0); Mean Corpuscular Hgb Conc. 34.4 g/dL (32.0-36.0); Mean Corpuscular Volume 99.2 fL (80.0-100.0); Monocytes # (auto) 1.1 10 ^3/uL (0-1.3); Monocytes % (auto) 10.3 % (0.0-12.0); Neutrophils % (auto) 72.4 % (37.0-80.0); Nucleated Red Blood Cells % 0.1 %; Red Blood Cells 4.48 10^6/uL (4.0-5.20); Red Cell Distribution Width 12.9 % (11.8-14.3)
[2021-07-24 20:11] LABS: Albumin 3.1 g/dL (3.4-5.0); Calcium 9.6 mg/dL (8.5-10.1); Potassium 3.8 mmol/L (3.5-5.1)
[2021-07-24 20:13] LABS: BUN/Creatinine Ratio 12.5
[2021-07-24 20:27] LABS: Bilirubin, Total 1.1 mg/dL (0.2-1.0); Total Protein 6.9 g/dL (6.4-8.2)
[2021-07-24] MEDS ORDERED: IOHEXOL 300 MG/ML 100ML BOTTLE IJ ONE (20:59)
[2021-07-24 22:37] LABS: Urine Amorphous Crystal FEW /hpf (None Seen); Urine Bacteria NONE SEEN /hpf (None Seen); Urine Blood Negative /uL (Negative); Urine Hyaline Cast MANY /lpf (0 - 2); Urine Mucus FEW (None Seen); Urine Specific Gravity 1.023 (1.001-1.035); Urine WBC 9 /hpf (0 - 5)
[2021-07-24] MEDS ORDERED: SODIUM CHLORIDE 0.9% 1,000 ML IV ONE (23:15)
[2021-07-25] MEDS ORDERED: CEFEPIME 2 GM in SODIUM CHL 0.9% 50 ML IV ONE ×2
[2021-07-25] MEDS ORDERED: metroNIDAZOLE 500MG/100ML 100 ML IV ONE
[2021-07-25] MEDS ORDERED: ALBUMIN 25% 100 ML IV ONE (00:15)
[2021-07-25] MEDS: SODIUM CHLORIDE 0.9% 1,000 ML IV SCH ×2 (00:48→17:10)
[2021-07-25] MEDS ORDERED: ENOXAPARIN SOD 100 MG/1 ML SYRINGE SC SCH (01:00)
[2021-07-25] MEDS ORDERED: CIPROFLOXACIN 400MG/200ML 200 ML IV ONE (01:45)
[2021-07-25] MEDS: metroNIDAZOLE 500MG/100ML 100 ML IV SCH ×3 (05:54→21:10)
[2021-07-25 06:20] VITALS: BP 117/63
[2021-07-25 06:50] VITALS: BP 117/63
[2021-07-25 08:00] VITALS: BP 141/75
[2021-07-25] MEDS: ACETAMINOPHEN 325 MG TAB PO PRN ×2 (08:54→23:48)
[2021-07-25] MEDS ORDERED: CHOL20007 OR (09:42)
[2021-07-25] MEDS ORDERED: FAMOTIDINE (10MG/ML) 2ML VL IV SCH (10:00)
[2021-07-25] MEDS ORDERED: ENOXAPARIN SOD 40 MG/0.4 ML SYRINGE SC SCH (10:00)
[2021-07-25] MEDS ORDERED: CIPROFLOXACIN 400MG/200ML 200 ML IV SCH (10:00)
[2021-07-25 12:00] VITALS: BP 105/60
[2021-07-25] MEDS: CIPROFLOXACIN 400MG/200ML 200 ML IV SCH ×2 (14:00→18:12)
[2021-07-25] MEDS: SUCRALFATE 1 GM/10 ML ORAL SUSP PO SCH ×3 (14:50→21:10)
[2021-07-25] MEDS: PANTOPRAZOLE 40 MG TAB PO SCH ×2 (14:50→21:10)
[2021-07-25] MEDS: MORPHINE SULFATE 4 MG/ML SYR/VIAL IV PRN (14:58)
[2021-07-25 17:00] VITALS: BP 118/67
[2021-07-25] MEDS: ENOXAPARIN SOD 80 MG/0.8ML SYRINGE SC SCH (17:00)
[2021-07-25 22:00] VITALS: BP 121/70
[2021-07-25] MEDS: METOPROLOL TARTRATE 1MG/1ML-5ML VIAL IV PRN (23:47)
[2021-07-26] MEDS: MORPHINE SULFATE 4 MG/ML SYR/VIAL IV PRN ×2 (01:42→15:22)
[2021-07-26 05:00] VITALS: BP 117/73
[2021-07-26] MEDS: ENOXAPARIN SOD 80 MG/0.8ML SYRINGE SC SCH ×2 (05:00→11:45)
[2021-07-26] MEDS: ONDANSETRON HCL 4 MG/2 ML VIAL IV PRN ×2 (05:23→09:58)
[2021-07-26] MEDS: METOPROLOL TARTRATE 1MG/1ML-5ML VIAL IV PRN (05:55)
[2021-07-26] MEDS: metroNIDAZOLE 500MG/100ML 100 ML IV SCH ×3 (05:55→21:36)
[2021-07-26] MEDS: SUCRALFATE 1 GM/10 ML ORAL SUSP PO SCH ×4 (05:55→21:36)
[2021-07-26 07:13] LABS: Basophils # (auto) 0 10 ^3/uL (0-0.2); Basophils % (auto) 0.5 % (0.0-2.0); Eosinophils # (auto) 0.1 10 ^3/uL (0-0.8); Hematocrit 38.5 % (36.0-46.0); Hemoglobin 13.4 g/dL (12.2-16.2); Lymphocytes # (auto) 1.8 10 ^3/uL (0.4-5.4); Lymphocytes % (auto) 24.2 % (10.0-50.0); Mean Corpuscular Hemoglobin 34.8 pg (28.0-32.0); Mean Corpuscular Hgb Conc. 34.8 g/dL (32.0-36.0); Mean Corpuscular Volume 100.1 fL (80.0-100.0); Monocytes # (auto) 0.7 10 ^3/uL (0-1.3); Monocytes % (auto) 9.5 % (0.0-12.0); Neutrophils # (auto) 4.8 10 ^3/uL (1.6-8.6); Neutrophils % (auto) 64.8 % (37.0-80.0); Nucleated Red Blood Cells % 0.1 %; Red Blood Cells 3.85 10^6/uL (4.0-5.20); Red Cell Distribution Width 12.7 % (11.8-14.3); White Blood Cell 7.4 10^3/uL (4.4-10.8)
[2021-07-26 07:51] LABS: Albumin 2.8 g/dL (3.4-5.0); BUN/Creatinine Ratio 13.2; Bilirubin, Total 0.8 mg/dL (0.2-1.0); Calcium 8.8 mg/dL (8.5-10.1); Total Protein 5.9 g/dL (6.4-8.2)
[2021-07-26 08:00] VITALS: BP 114/72
[2021-07-26] MEDS ORDERED: POTASSIUM EFFERVESENT TAB 25 MEQ PO ONE (08:45)
[2021-07-26] MEDS ORDERED: POTASSIUM CHL 20 Meq TABLET PO ONE (08:45)
[2021-07-26 09:00] VITALS: BP 114/72
[2021-07-26] MEDS: PANTOPRAZOLE 40 MG TAB PO SCH ×2 (09:06→21:37)
[2021-07-26] MEDS: POTASSIUM CHL 10 Meq TABLET PO SCH (09:48)
[2021-07-26] MEDS ORDERED: METOPROLOL SUCCINATE XL 50 MG TAB PO SCH (10:00)
[2021-07-26] MEDS: FUROSEMIDE 40 MG TAB PO SCH (10:00)
[2021-07-26] MEDS: SOTALOL HCL 80 MG TAB PO SCH ×2 (10:00→21:36)
[2021-07-26] MEDS ORDERED: METOPROLOL TARTRATE 50 MG TAB PO SCH (10:00)
[2021-07-26] MEDS: CHOLECALCIFEROL (VITD3) 1,000UNIT=25mCg TAB PO SCH (10:07)
[2021-07-26] MEDS: ASCORBIC ACID 500 MG TAB PO SCH (10:07)
[2021-07-26] MEDS: SODIUM CHLORIDE 0.9% 1,000 ML IV SCH (10:07)
[2021-07-26] MEDS: GABAPENTIN 300 MG CAP PO SCH ×2 (10:07→21:37)
[2021-07-26] MEDS: LEVOTHYROXINE SODIUM 112 MCG TAB PO SCH (10:25)
[2021-07-26] MEDS: CIPROFLOXACIN 400MG/200ML 200 ML IV SCH (12:05)
[2021-07-26 12:38] VITALS: BP 105/54
[2021-07-26 17:00] VITALS: BP 104/66
[2021-07-26] MEDS: ACETAMINOPHEN 325 MG TAB PO PRN (19:56)
[2021-07-26] MEDS: PRAVASTATIN SODIUM 20 MG TAB PO SCH (21:37)
[2021-07-26 22:00] VITALS: BP 102/66
[2021-07-27] MEDS: CIPROFLOXACIN 400MG/200ML 200 ML IV SCH ×2 (02:40→15:29)
[2021-07-27 05:00] VITALS: BP 112/80
[2021-07-27] MEDS: SUCRALFATE 1 GM/10 ML ORAL SUSP PO SCH ×4 (06:32→21:06)
[2021-07-27] MEDS: metroNIDAZOLE 500MG/100ML 100 ML IV SCH ×3 (06:32→21:05)
[2021-07-27] MEDS: LEVOTHYROXINE SODIUM 112 MCG TAB PO SCH (06:32)
[2021-07-27] MEDS: ENOXAPARIN SOD 80 MG/0.8ML SYRINGE SC SCH ×2 (06:32→17:20)
[2021-07-27] MEDS: SODIUM CHLORIDE 0.9% 1,000 ML IV SCH ×2 (06:50→19:10)
[2021-07-27 07:17] LABS: Calcium 8.8 mg/dL (8.5-10.1); Potassium 3.8 mmol/L (3.5-5.1)
[2021-07-27 07:21] LABS: BUN/Creatinine Ratio 9.9; Magnesium 2.2 mg/dL (1.6-2.6); Phosphorus 2.4 mg/dL (2.5-4.90)
[2021-07-27 08:00] VITALS: BP_SYST 110; BP_SYST 145; BP_DIAS 53; BP_DIAS 61
[2021-07-27] MEDS: SOTALOL HCL 80 MG TAB PO SCH ×2 (09:48→21:06)
[2021-07-27] MEDS: FUROSEMIDE 40 MG TAB PO SCH (09:49)
[2021-07-27] MEDS: GABAPENTIN 300 MG CAP PO SCH ×2 (09:49→21:06)
[2021-07-27] MEDS: POTASSIUM CHL 10 Meq TABLET PO SCH (09:49)
[2021-07-27] MEDS: ASCORBIC ACID 500 MG TAB PO SCH (09:50)
[2021-07-27] MEDS: CHOLECALCIFEROL (VITD3) 1,000UNIT=25mCg TAB PO SCH (09:50)
[2021-07-27] MEDS: PANTOPRAZOLE 40 MG TAB PO SCH ×2 (09:50→21:07)
[2021-07-27] MEDS ORDERED: OMNIPAQUE ORAL SOLN 500ml 12mg/ml PO ONE (11:57)
[2021-07-27 13:00] VITALS: BP 126/78
[2021-07-27] MEDS ORDERED: DIGOXIN (250MCG/ML) 2 ML AMPULE IV ONE (13:00)
[2021-07-27 13:03] LABS: White Blood Cell 6.1 10^3/uL (4.4-10.8)
[2021-07-27 13:04] LABS: Hematocrit 36.7 % (36.0-46.0); Hemoglobin 12.8 g/dL (12.2-16.2); Mean Corpuscular Hemoglobin 35.5 pg (28.0-32.0); Mean Corpuscular Hgb Conc. 34.9 g/dL (32.0-36.0); Mean Corpuscular Volume 101.7 fL (80.0-100.0); Red Blood Cells 3.61 10^6/uL (4.0-5.20); Red Cell Distribution Width 12.9 % (11.8-14.3)
[2021-07-27 13:20] LABS: Basophils % (manual) 0 (0.0-2.0); Blast Cells 0; Metamyelocytes % 0; Myelocytes % 0; Promyelocytes % 0; Reactive Lymphocytes 0
[2021-07-27 13:39] LABS: Band Neutrophils % (manual) 1; Eosinophils % (manual) 1 (0-7); Lymphocytes % (manual) 19 (10.0-50.0); Monocytes % (manual) 14 (0-12)
[2021-07-27 14:04] LABS: INR 1.18 (0.9-1.15); Partial Thromboplastin Time 36.1 sec (23.6-33.0)
[2021-07-27] MEDS ORDERED: IOHEXOL 350 MG/ML 100ML IJ ONE (14:54)
[2021-07-27 17:00] VITALS: BP 127/83
[2021-07-27] MEDS: PRAVASTATIN SODIUM 20 MG TAB PO SCH (21:07)
[2021-07-27 22:22] VITALS: BP 114/69
[2021-07-28] MEDS: CIPROFLOXACIN 400MG/200ML 200 ML IV SCH ×2 (01:01→14:00)
[2021-07-28 05:20] VITALS: BP 127/83
[2021-07-28] MEDS: ENOXAPARIN SOD 80 MG/0.8ML SYRINGE SC SCH ×2 (05:36→17:00)
[2021-07-28] MEDS: metroNIDAZOLE 500MG/100ML 100 ML IV SCH ×3 (05:36→22:25)
[2021-07-28] MEDS: LEVOTHYROXINE SODIUM 112 MCG TAB PO SCH (06:04)
[2021-07-28] MEDS: SUCRALFATE 1 GM/10 ML ORAL SUSP PO SCH ×4 (06:04→22:26)
[2021-07-28] MEDS: SODIUM CHLORIDE 0.9% 1,000 ML IV SCH ×2 (06:45→07:45)
[2021-07-28 09:00] VITALS: BP 101/71
[2021-07-28] MEDS: ASCORBIC ACID 500 MG TAB PO SCH (10:00)
[2021-07-28] MEDS: CHOLECALCIFEROL (VITD3) 1,000UNIT=25mCg TAB PO SCH (10:00)
[2021-07-28] MEDS: POTASSIUM CHL 10 Meq TABLET PO SCH (10:00)
[2021-07-28] MEDS: FUROSEMIDE 40 MG TAB PO SCH (10:00)
[2021-07-28] MEDS: PANTOPRAZOLE 40 MG TAB PO SCH ×2 (10:00→22:26)
[2021-07-28] MEDS: GABAPENTIN 300 MG CAP PO SCH ×2 (10:00→22:26)
[2021-07-28] MEDS: SOTALOL HCL 80 MG TAB PO SCH ×2 (10:00→22:25)
[2021-07-28 13:00] VITALS: BP 92/58
[2021-07-28 17:00] VITALS: BP 110/83
[2021-07-28 22:00] VITALS: BP 100/60
[2021-07-28] MEDS: ACETAMINOPHEN 325 MG TAB PO PRN (22:25)
[2021-07-28] MEDS: PRAVASTATIN SODIUM 20 MG TAB PO SCH (22:26)
[2021-07-29] MEDS: CIPROFLOXACIN 400MG/200ML 200 ML IV SCH ×2 (01:24→14:21)
[2021-07-29 05:00] VITALS: BP 104/67
[2021-07-29 05:33] LABS: Hematocrit 36.5 % (36.0-46.0); Hemoglobin 12.7 g/dL (12.2-16.2); Mean Corpuscular Hemoglobin 34.7 pg (28.0-32.0); Mean Corpuscular Hgb Conc. 34.9 g/dL (32.0-36.0); Mean Corpuscular Volume 99.5 fL (80.0-100.0); Red Blood Cells 3.67 10^6/uL (4.0-5.20); Red Cell Distribution Width 12.7 % (11.8-14.3); White Blood Cell 5.1 10^3/uL (4.4-10.8)
[2021-07-29 05:49] LABS: Calcium 8.6 mg/dL (8.5-10.1); Magnesium 1.7 mg/dL (1.6-2.6); Potassium 3.1 mmol/L (3.5-5.1)
[2021-07-29 05:51] LABS: BUN/Creatinine Ratio 6.7
[2021-07-29] MEDS: ENOXAPARIN SOD 80 MG/0.8ML SYRINGE SC SCH ×3 (05:54→17:47)
[2021-07-29 05:58] LABS: Basophils % (manual) 0 (0.0-2.0); Blast Cells 0; Metamyelocytes % 0; Promyelocytes % 0; Reactive Lymphocytes 0
[2021-07-29] MEDS: SUCRALFATE 1 GM/10 ML ORAL SUSP PO SCH ×4 (06:03→22:00)
[2021-07-29] MEDS: LEVOTHYROXINE SODIUM 112 MCG TAB PO SCH (06:03)
[2021-07-29] MEDS: metroNIDAZOLE 500MG/100ML 100 ML IV SCH ×3 (06:03→22:00)
[2021-07-29 06:36] LABS: Band Neutrophils % (manual) 5; Eosinophils % (manual) 2 (0-7); Lymphocytes % (manual) 23 (10.0-50.0); Monocytes % (manual) 10 (0-12); Myelocytes % 2
[2021-07-29 08:00] VITALS: BP 111/69
[2021-07-29] MEDS ORDERED: POTASSIUM CHL 20 Meq TABLET PO ONE (10:30)
[2021-07-29] MEDS: FUROSEMIDE 40 MG TAB PO SCH (10:36)
[2021-07-29] MEDS: POTASSIUM CHL 10 Meq TABLET PO SCH (10:37)
[2021-07-29] MEDS: SOTALOL HCL 80 MG TAB PO SCH ×2 (10:37→22:00)
[2021-07-29] MEDS: GABAPENTIN 300 MG CAP PO SCH ×2 (10:37→22:00)
[2021-07-29] MEDS: PANTOPRAZOLE 40 MG TAB PO SCH ×2 (10:37→22:00)
[2021-07-29] MEDS: CHOLECALCIFEROL (VITD3) 1,000UNIT=25mCg TAB PO SCH (10:38)
[2021-07-29] MEDS: MAGNESIUM SULFATE 1GM/100ML 100 ML IV SCH ×2 (10:48→13:15)
[2021-07-29] MEDS: ACETAMINOPHEN 325 MG TAB PO PRN (10:51)
[2021-07-29 12:30] VITALS: BP 119/83
[2021-07-29 17:00] VITALS: BP 126/88
[2021-07-29 22:00] VITALS: BP 120/84
[2021-07-29] MEDS: PRAVASTATIN SODIUM 20 MG TAB PO SCH (22:00)
[2021-07-29] MEDS: MORPHINE SULFATE 4 MG/ML SYR/VIAL IV PRN (23:00)
[2021-07-30] MEDS: CIPROFLOXACIN 400MG/200ML 200 ML IV SCH (01:53)
[2021-07-30 05:00] VITALS: BP 122/74
[2021-07-30] MEDS: ENOXAPARIN SOD 80 MG/0.8ML SYRINGE SC SCH (05:00)
[2021-07-30] MEDS: metroNIDAZOLE 500MG/100ML 100 ML IV SCH (06:00)
[2021-07-30] MEDS: SUCRALFATE 1 GM/10 ML ORAL SUSP PO SCH ×2 (07:17→12:31)
[2021-07-30] MEDS: LEVOTHYROXINE SODIUM 112 MCG TAB PO SCH (07:17)
[2021-07-30 08:21] VITALS: BP 113/75
[2021-07-30] MEDS: SOTALOL HCL 80 MG TAB PO SCH (09:13)
[2021-07-30] MEDS: FUROSEMIDE 40 MG TAB PO SCH (09:13)
[2021-07-30] MEDS: POTASSIUM CHL 10 Meq TABLET PO SCH (09:13)
[2021-07-30] MEDS: GABAPENTIN 300 MG CAP PO SCH (09:14)
[2021-07-30] MEDS: PANTOPRAZOLE 40 MG TAB PO SCH (09:14)
[2021-07-30] MEDS: CHOLECALCIFEROL (VITD3) 1,000UNIT=25mCg TAB PO SCH (09:15)
[2021-07-30 12:31] VITALS: BP 90/56
[2021-07-30] MEDS ORDERED: PROBTAB12 OR (12:33)
[2021-07-30] MEDS ORDERED: FAMO-161 PO (12:33)
[2021-07-30] MEDS ORDERED: METR500T PO (12:33)
[2021-07-30] MEDS ORDERED: SUCR1SUS10 PO (12:33)
[2021-07-30] MEDS ORDERED: LEVO750T8 PO (12:33)
[2021-07-30 14:20] VITALS: BP 90/56
== END 2021-07-30 16:06 | disposition home or self-care (01) | DRG 392 ==
LOC: ER 15:23 → TELE 07-25 00:17 → TELE-WESTW 07-25 05:13
PROVIDERS: ADMIT Internal Medicine; ATTEND Internal Medicine
DX: K57.32 Diverticulitis of large intestine without perforation or abscess without bleeding (principal); I50.30 Unspecified diastolic (congestive) heart failure; M48.56XA Collapsed vertebra, not elsewhere classified, lumbar region, initial encounter for fracture; I50.32 Chronic diastolic (congestive) heart failure; I95.9 Hypotension, unspecified; I50.9 Heart failure, unspecified; K21.9 Gastro-esophageal reflux disease without esophagitis; E78.5 Hyperlipidemia, unspecified; C73 Malignant neoplasm of thyroid gland; I11.0 Hypertensive heart disease with heart failure; Z96.641 Presence of right artificial hip joint; Z96.651 Presence of right artificial knee joint; R00.0 Tachycardia, unspecified; Z20.822 Contact with and (suspected) exposure to COVID-19; E03.9 Hypothyroidism, unspecified; I25.10 Atherosclerotic heart disease of native coronary artery without angina pectoris; Z79.01 Long term (current) use of anticoagulants; Z79.899 Other long term (current) drug therapy; Z82.49 Family history of ischemic heart disease and other diseases of the circulatory system; Z85.850 Personal history of malignant neoplasm of thyroid; Z87.891 Personal history of nicotine dependence; Z90.49 Acquired absence of other specified parts of digestive tract; Z90.710 Acquired absence of both cervix and uterus; Z95.0 Presence of cardiac pacemaker; Z88.0 Allergy status to penicillin; Z88.2 Allergy status to sulfonamides
CPT/HCPCS: 36415; 71045; 71260; 74177; 80048; 80053; 81001; 82378; 83605; 83690; 83735; 83880; 84100; 84439; 84443; 84484; 85007; 85025; 85027; 85048; 85379; 85610; 85730; 87040; 87045; 87177; 87427; 93005; 93306; 96361; 96365; 96367; 96372; 99291; G0378; J2405; J3490; P9047

== ENCOUNTER → 2021-12-18 | Outpatient (CLI) | payer OTHER ==
[~2021-12-18] MED LIST changes: +CHOL20007 OR; +FAMO-161 PO; +LEVO750T8 PO; +METR500T PO; +PROBTAB12 OR; +SUCR1SUS10 PO
[2021-12-18 11:33] LABS: Basophils # (auto) 0 10 ^3/uL (0-0.2); Basophils % (auto) 1.1 % (0.0-2.0); Eosinophils # (auto) 0.1 10 ^3/uL (0-0.8); Eosinophils % (auto) 1.9 % (0.0-7.0); Hematocrit 44.4 % (36.0-46.0); Hemoglobin 14.9 g/dL (12.2-16.2); Lymphocytes # (auto) 1.4 10 ^3/uL (0.4-5.4); Lymphocytes % (auto) 32.5 % (10.0-50.0); Mean Corpuscular Hemoglobin 33.8 pg (28.0-32.0); Mean Corpuscular Hgb Conc. 33.5 g/dL (32.0-36.0); Mean Corpuscular Volume 100.9 fL (80.0-100.0); Monocytes # (auto) 0.5 10 ^3/uL (0-1.3); Monocytes % (auto) 10.4 % (0.0-12.0); Neutrophils # (auto) 2.4 10 ^3/uL (1.6-8.6); Neutrophils % (auto) 54.1 % (37.0-80.0); Red Cell Distribution Width 13.9 % (11.8-14.3); White Blood Cell 4.3 10^3/uL (4.4-10.8)
[2021-12-18 12:29] LABS: Potassium 3.9 mmol/L (3.5-5.1)
[2021-12-18 12:35] LABS: Albumin 3.6 g/dL (3.4-5.0); BUN/Creatinine Ratio 17.5; Bilirubin, Total 1.3 mg/dL (0.2-1.0); Total Protein 6.9 g/dL (6.4-8.2)
== END | disposition home or self-care (01) ==
LOC: LAB 11:18
PROVIDERS: ATTEND Internal Medicine
DX: E03.9 Hypothyroidism, unspecified (principal); E87.6 Hypokalemia
CPT/HCPCS: 36415; 80053; 84439; 84443; 85025

== ENCOUNTER → 2021-12-26 | Outpatient (CLI) | payer OTHER ==
[2021-12-26 16:43] LABS: Folate (Folic Acid) 16.58 ng/mL (5.38-24)
[2021-12-27 06:07] LABS: RPR Non Reactive (Non Reactive)
== END | disposition home or self-care (01) ==
LOC: LAB 15:08
PROVIDERS: ATTEND Internal Medicine
DX: D75.89 Other specified diseases of blood and blood-forming organs (principal); R41.3 Other amnesia
CPT/HCPCS: 82607; 82746; 86592

== ENCOUNTER → 2022-01-21 | Outpatient (CLI) | payer OTHER ==
[2022-01-21 08:45] LABS: Basophils # (auto) 0 10 ^3/uL (0-0.2); Basophils % (auto) 0.7 % (0.0-2.0); Eosinophils # (auto) 0.1 10 ^3/uL (0-0.8); Eosinophils % (auto) 1.8 % (0.0-7.0); Hematocrit 44.9 % (36.0-46.0); Hemoglobin 14.8 g/dL (12.2-16.2); Lymphocytes # (auto) 1.4 10 ^3/uL (0.4-5.4); Lymphocytes % (auto) 30.8 % (10.0-50.0); Mean Corpuscular Hemoglobin 32.5 pg (28.0-32.0); Mean Corpuscular Volume 98.7 fL (80.0-100.0); Monocytes # (auto) 0.5 10 ^3/uL (0-1.3); Monocytes % (auto) 11.4 % (0.0-12.0); Neutrophils # (auto) 2.5 10 ^3/uL (1.6-8.6); Neutrophils % (auto) 55.3 % (37.0-80.0); Nucleated Red Blood Cells % 0.1 %; Red Blood Cells 4.55 10^6/uL (4.0-5.20); Red Cell Distribution Width 13.7 % (11.8-14.3); White Blood Cell 4.6 10^3/uL (4.4-10.8)
[2022-01-21 09:09] LABS: Albumin 3.3 g/dL (3.4-5.0); Calcium 9.1 mg/dL (8.5-10.1); Potassium 4.2 mmol/L (3.5-5.1)
[2022-01-21 09:13] LABS: BUN/Creatinine Ratio 16.9; Bilirubin, Direct 0.3 mg/dL (0-0.2); Bilirubin, Total 0.8 mg/dL (0.2-1.0)
== END | disposition home or self-care (01) ==
LOC: LAB 08:25
PROVIDERS: ATTEND Specialist
DX: I10 Essential (primary) hypertension (principal); R94.5 Abnormal results of liver function studies; D64.9 Anemia, unspecified; E78.5 Hyperlipidemia, unspecified; E11.8 Type 2 diabetes mellitus with unspecified complications; E03.9 Hypothyroidism, unspecified
CPT/HCPCS: 36415; 80048; 80061; 80076; 83036; 84443; 85025

== ENCOUNTER → 2022-04-21 | Outpatient (CLI) | payer OTHER ==
[2022-04-21 09:57] LABS: Basophils # (auto) 0.1 10 ^3/uL (0-0.2); Basophils % (auto) 1.1 % (0.0-2.0); Eosinophils # (auto) 0.1 10 ^3/uL (0-0.8); Eosinophils % (auto) 1.1 % (0.0-7.0); Hematocrit 44.4 % (36.0-46.0); Hemoglobin 14.9 g/dL (12.2-16.2); Lymphocytes # (auto) 1.5 10 ^3/uL (0.4-5.4); Lymphocytes % (auto) 24.8 % (10.0-50.0); Mean Corpuscular Hemoglobin 33.1 pg (28.0-32.0); Mean Corpuscular Hgb Conc. 33.5 g/dL (32.0-36.0); Mean Corpuscular Volume 98.8 fL (80.0-100.0); Monocytes # (auto) 0.7 10 ^3/uL (0-1.3); Monocytes % (auto) 11.5 % (0.0-12.0); Neutrophils # (auto) 3.6 10 ^3/uL (1.6-8.6); Neutrophils % (auto) 61.5 % (37.0-80.0); Nucleated Red Blood Cells % 0.1 %; Red Blood Cells 4.49 10^6/uL (4.0-5.20); Red Cell Distribution Width 13.8 % (11.8-14.3); White Blood Cell 5.9 10^3/uL (4.4-10.8)
[2022-04-21 10:22] LABS: Albumin 3.8 g/dL (3.4-5.0); Calcium 9.3 mg/dL (8.5-10.1); Potassium 4.4 mmol/L (3.5-5.1)
[2022-04-21 10:30] LABS: BUN/Creatinine Ratio 18.1; Bilirubin, Direct 0.3 mg/dL (0-0.2); Bilirubin, Total 0.9 mg/dL (0.2-1.0)
[2022-04-21 13:45] LABS: Urine Blood Negative /uL (Negative); Urine Specific Gravity 1.006 (1.001-1.035)
== END | disposition home or self-care (01) ==
LOC: LAB 09:26
PROVIDERS: ATTEND Internal Medicine
DX: I10 Essential (primary) hypertension (principal); R94.5 Abnormal results of liver function studies; D64.9 Anemia, unspecified; E78.5 Hyperlipidemia, unspecified; E11.8 Type 2 diabetes mellitus with unspecified complications; E03.9 Hypothyroidism, unspecified
CPT/HCPCS: 36415; 80053; 80061; 80076; 81001; 83036; 83880; 84439; 84443; 85025

== ENCOUNTER 2022-05-20 15:05 | Inpatient (IN) | payer OTHER ==
[~2022-05-20] VITALS: Ht 172.7 cm; Wt 69.4 kg
[~2022-05-20 15:05] MED LIST changes: -CHOL20007 OR; +CHOL20007 PO
[2022-05-20 15:57] LABS: Basophils # (auto) 0 10 ^3/uL (0-0.2); Basophils % (auto) 0.8 % (0.0-2.0); Eosinophils # (auto) 0.1 10 ^3/uL (0-0.8); Eosinophils % (auto) 1.1 % (0.0-7.0); Hematocrit 47.3 % (36.0-46.0); Hemoglobin 16.6 g/dL (12.2-16.2); Lymphocytes # (auto) 1.7 10 ^3/uL (0.4-5.4); Lymphocytes % (auto) 26.8 % (10.0-50.0); Mean Corpuscular Hemoglobin 33.6 pg (28.0-32.0); Mean Corpuscular Hgb Conc. 35.1 g/dL (32.0-36.0); Mean Corpuscular Volume 95.9 fL (80.0-100.0); Monocytes # (auto) 0.8 10 ^3/uL (0-1.3); Neutrophils # (auto) 3.8 10 ^3/uL (1.6-8.6); Neutrophils % (auto) 58.3 % (37.0-80.0); Nucleated Red Blood Cells % 0.2 %; Red Blood Cells 4.93 10^6/uL (4.0-5.20); White Blood Cell 6.5 10^3/uL (4.4-10.8)
[2022-05-20 16:13] LABS: Albumin 3.4 g/dL (3.4-5.0); Calcium 9.7 mg/dL (8.5-10.1); Potassium 3.2 mmol/L (3.5-5.1)
[2022-05-20 16:15] LABS: Bilirubin, Total 1.3 mg/dL (0.2-1.0); Total Protein 6.3 g/dL (6.4-8.2)
[2022-05-20] MEDS ORDERED: dilTIAZem 25 MG/5 ML VIAL IV ONE (16:45)
[2022-05-20] MEDS ORDERED: DEXTROSE (50%) 50ML SYRG IV PRN (20:00)
[2022-05-20] MEDS ORDERED: DOCUSATE SOD 100 MG CAP PO PRN (20:00)
[2022-05-20] MEDS ORDERED: HYDROcodone-ACET 5/325MG TAB PO PRN (20:00)
[2022-05-20] MEDS ORDERED: LORazepam 0.5 MG TAB PO PRN (20:00)
[2022-05-20] MEDS ORDERED: MAALOX PLUS or MAALOX 30 ML PO PRN (20:00)
[2022-05-20] MEDS ORDERED: MORPHINE SULFATE INJ 2 MG/ml SYRG IV PRN ×2 (20:00)
[2022-05-20] MEDS ORDERED: NITROGLYCERIN 0.4 MG SL TAB SL PRN (20:00)
[2022-05-20] MEDS ORDERED: ONDANSETRON HCL 4 MG/2 ML VIAL IV PRN (20:00)
[2022-05-20] MEDS: SODIUM CHLORIDE 0.9% 1,000 ML IV SCH (20:43)
[2022-05-20] MEDS: ACETAMINOPHEN 325 MG TAB PO PRN (20:58)
[2022-05-20] MEDS: SOTALOL HCL 80 MG TAB PO SCH (22:50)
[2022-05-20] MEDS ORDERED: METOPROLOL TARTRATE 1MG/1ML-5ML VIAL IV ONE (23:15)
[2022-05-21] MEDS: ACCU-CHEK COMFORT CURVE STRIP VI SCH ×5 (01:09→23:07)
[2022-05-21 05:00] VITALS: BP 99/49
[2022-05-21] MEDS: InsuLIN REG 1unit/0.01ml Soln (100units/ml) SC SCH ×5 (06:00→23:33)
[2022-05-21] MEDS: LEVOTHYROXINE SODIUM 112 MCG TAB PO SCH (06:27)
[2022-05-21 07:58] LABS: Basophils # (auto) 0 10 ^3/uL (0-0.2); Basophils % (auto) 0.5 % (0.0-2.0); Eosinophils # (auto) 0.1 10 ^3/uL (0-0.8); Eosinophils % (auto) 1.7 % (0.0-7.0); Hematocrit 39.8 % (36.0-46.0); Hemoglobin 13.8 g/dL (12.2-16.2); Lymphocytes # (auto) 1.6 10 ^3/uL (0.4-5.4); Lymphocytes % (auto) 36.5 % (10.0-50.0); Mean Corpuscular Hemoglobin 33.3 pg (28.0-32.0); Mean Corpuscular Hgb Conc. 34.8 g/dL (32.0-36.0); Mean Corpuscular Volume 95.8 fL (80.0-100.0); Monocytes # (auto) 0.6 10 ^3/uL (0-1.3); Monocytes % (auto) 14.6 % (0.0-12.0); Neutrophils # (auto) 2.1 10 ^3/uL (1.6-8.6); Neutrophils % (auto) 46.7 % (37.0-80.0); Nucleated Red Blood Cells % 0.1 %; Red Blood Cells 4.15 10^6/uL (4.0-5.20); Red Cell Distribution Width 12.8 % (11.8-14.3); White Blood Cell 4.4 10^3/uL (4.4-10.8)
[2022-05-21 08:00] VITALS: BP 118/61
[2022-05-21 08:07] LABS: Calcium 8.3 mg/dL (8.5-10.1)
[2022-05-21 08:09] LABS: BUN/Creatinine Ratio 23.5
[2022-05-21 08:12] LABS: Potassium 2.6 mmol/L (3.5-5.1)
[2022-05-21] MEDS ORDERED: POTASSIUM CHL 20 Meq TABLET PO ONE (08:45)
[2022-05-21] MEDS ORDERED: MAGNESIUM OXIDE 400 MG TAB PO ONE (08:45)
[2022-05-21] MEDS ORDERED: POTASSIUM CHLORIDE 60 MEQ, LIDOCAINE 1% (LOCAL ANESTH.) 6 ML in SODIUM CHL 0.9% 500 ML IV ONE (08:45)
[2022-05-21 09:00] VITALS: BP 118/61
[2022-05-21] MEDS ORDERED: FUROSEMIDE 20 MG TAB PO SCH (10:00)
[2022-05-21] MEDS: SOTALOL HCL 80 MG TAB PO SCH ×2 (11:55→23:06)
[2022-05-21] MEDS: PANTOPRAZOLE 40 MG TAB PO SCH (11:55)
[2022-05-21] MEDS: SODIUM CHLORIDE 0.9% 1,000 ML IV SCH (12:40)
[2022-05-21 13:00] VITALS: BP 114/61
[2022-05-21 17:00] VITALS: BP 121/61
[2022-05-21] MEDS: ATORVASTATIN 20 MG TAB PO SCH (18:45)
[2022-05-21 20:02] LABS: Urine Bacteria FEW /hpf (None Seen); Urine Blood Negative /uL (Negative); Urine Hyaline Cast FEW /lpf (0 - 2); Urine Specific Gravity 1.009 (1.001-1.035); Urine WBC <1 /hpf (0 - 5)
[2022-05-21 22:00] VITALS: BP 130/66
[2022-05-21] MEDS ORDERED: ENOXAPARIN SOD 80 MG/0.8ML SYRINGE SC ONE (22:45)
[2022-05-21] MEDS: TEMAZEPAM 15 MG CAP PO PRN (23:06)
[2022-05-22 05:00] VITALS: BP 116/66
[2022-05-22] MEDS: InsuLIN REG 1unit/0.01ml Soln (100units/ml) SC SCH ×2 (06:00→12:00)
[2022-05-22] MEDS: LEVOTHYROXINE SODIUM 112 MCG TAB PO SCH (06:10)
[2022-05-22] MEDS: ACCU-CHEK COMFORT CURVE STRIP VI SCH ×2 (06:11→12:24)
[2022-05-22 06:37] LABS: Calcium 8.8 mg/dL (8.5-10.1); Magnesium 2.1 mg/dL (1.6-2.6); Potassium 3.7 mmol/L (3.5-5.1)
[2022-05-22 06:39] LABS: Phosphorus 2.4 mg/dL (2.5-4.90)
[2022-05-22 08:00] VITALS: BP 119/60
[2022-05-22] MEDS: PANTOPRAZOLE 40 MG TAB PO SCH (09:03)
[2022-05-22 09:04] LABS: Basophils # (auto) 0 10 ^3/uL (0-0.2); Basophils % (auto) 0.7 % (0.0-2.0); Eosinophils # (auto) 0.1 10 ^3/uL (0-0.8); Eosinophils % (auto) 1.8 % (0.0-7.0); Hematocrit 38.6 % (36.0-46.0); Lymphocytes # (auto) 1.6 10 ^3/uL (0.4-5.4); Lymphocytes % (auto) 33.7 % (10.0-50.0); Mean Corpuscular Hgb Conc. 33.7 g/dL (32.0-36.0); Mean Corpuscular Volume 97.8 fL (80.0-100.0); Monocytes # (auto) 0.7 10 ^3/uL (0-1.3); Monocytes % (auto) 13.5 % (0.0-12.0); Neutrophils # (auto) 2.5 10 ^3/uL (1.6-8.6); Neutrophils % (auto) 50.3 % (37.0-80.0); Nucleated Red Blood Cells % 0.1 %; Red Blood Cells 3.95 10^6/uL (4.0-5.20); Red Cell Distribution Width 13.2 % (11.8-14.3); White Blood Cell 4.9 10^3/uL (4.4-10.8)
[2022-05-22] MEDS: SOTALOL HCL 80 MG TAB PO SCH ×2 (09:12→22:10)
[2022-05-22] MEDS: ENOXAPARIN SOD 80 MG/0.8ML SYRINGE SC SCH ×2 (09:42→22:10)
[2022-05-22 13:00] VITALS: BP 102/60
[2022-05-22] MEDS ORDERED: D5W 5% 1,000 ML IV ONE (14:45)
[2022-05-22] MEDS ORDERED: POTASSIUM PHOSPHATE 44 MEQ in D5W 5% 250 ML IV ONE (14:45)
[2022-05-22 17:00] VITALS: BP 127/58
[2022-05-22] MEDS: ACETAMINOPHEN 325 MG TAB PO PRN (17:39)
[2022-05-22] MEDS: ATORVASTATIN 20 MG TAB PO SCH (19:32)
[2022-05-22 22:00] VITALS: BP 117/54
[2022-05-22] MEDS: TEMAZEPAM 15 MG CAP PO PRN (22:10)
[2022-05-23 05:00] VITALS: BP 126/64
[2022-05-23] MEDS: LEVOTHYROXINE SODIUM 112 MCG TAB PO SCH (06:32)
[2022-05-23 07:07] LABS: Potassium 3.6 mmol/L (3.5-5.1)
[2022-05-23 07:12] LABS: BUN/Creatinine Ratio 19.1; Calcium 8.5 mg/dL (8.5-10.1); Magnesium 1.9 mg/dL (1.6-2.6); Phosphorus 3.4 mg/dL (2.5-4.90)
[2022-05-23 09:40] VITALS: BP 127/62
[2022-05-23] MEDS: SOTALOL HCL 80 MG TAB PO SCH ×2 (10:03→22:23)
[2022-05-23] MEDS: PANTOPRAZOLE 40 MG TAB PO SCH (10:03)
[2022-05-23] MEDS: DIGOXIN 0.125 MG TAB PO SCH (10:04)
[2022-05-23] MEDS: ENOXAPARIN SOD 80 MG/0.8ML SYRINGE SC SCH ×2 (10:04→22:24)
[2022-05-23] MEDS: dilTIAZem 120MG ER CAP PO SCH (10:04)
[2022-05-23] MEDS ORDERED: DIGO1TAB48 PO (15:39)
[2022-05-23] MEDS ORDERED: DILT120C12 PO (15:39)
[2022-05-23 16:30] VITALS: BP 125/69
[2022-05-23] MEDS: ATORVASTATIN 20 MG TAB PO SCH (18:43)
[2022-05-23 21:56] VITALS: BP 128/52
[2022-05-23] MEDS: TEMAZEPAM 15 MG CAP PO PRN (22:22)
[2022-05-24 05:00] VITALS: BP 120/59
[2022-05-24] MEDS: LEVOTHYROXINE SODIUM 112 MCG TAB PO SCH (05:39)
[2022-05-24 08:12] LABS: Basophils # (auto) 0 10 ^3/uL (0-0.2); Basophils % (auto) 0.7 % (0.0-2.0); Eosinophils # (auto) 0 10 ^3/uL (0-0.8); Eosinophils % (auto) 1.2 % (0.0-7.0); Hemoglobin 13.4 g/dL (12.2-16.2); Lymphocytes # (auto) 1.1 10 ^3/uL (0.4-5.4); Lymphocytes % (auto) 27.7 % (10.0-50.0); Mean Corpuscular Hemoglobin 32.2 pg (28.0-32.0); Mean Corpuscular Hgb Conc. 32.7 g/dL (32.0-36.0); Mean Corpuscular Volume 98.6 fL (80.0-100.0); Monocytes # (auto) 0.5 10 ^3/uL (0-1.3); Monocytes % (auto) 13.1 % (0.0-12.0); Neutrophils # (auto) 2.3 10 ^3/uL (1.6-8.6); Neutrophils % (auto) 57.3 % (37.0-80.0); Nucleated Red Blood Cells % 0.2 %; Red Blood Cells 4.16 10^6/uL (4.0-5.20); Red Cell Distribution Width 12.8 % (11.8-14.3)
[2022-05-24 08:43] LABS: Albumin 2.9 g/dL (3.4-5.0); Calcium 8.3 mg/dL (8.5-10.1); Potassium 3.7 mmol/L (3.5-5.1)
[2022-05-24 08:48] LABS: BUN/Creatinine Ratio 20.8; Phosphorus 2.8 mg/dL (2.5-4.90); Total Protein 5.1 g/dL (6.4-8.2)
[2022-05-24 09:19] VITALS: BP 138/66
[2022-05-24] MEDS: SOTALOL HCL 80 MG TAB PO SCH (10:21)
[2022-05-24] MEDS: dilTIAZem 120MG ER CAP PO SCH (10:22)
[2022-05-24] MEDS: DIGOXIN 0.125 MG TAB PO SCH (10:22)
[2022-05-24] MEDS: ENOXAPARIN SOD 80 MG/0.8ML SYRINGE SC SCH (10:23)
[2022-05-24] MEDS: PANTOPRAZOLE 40 MG TAB PO SCH (10:23)
[2022-05-24 12:32] VITALS: BP 138/66
[2022-05-24 13:13] VITALS: BP 133/63
== END 2022-05-24 14:50 | disposition home or self-care (01) | DRG 308 ==
LOC: ER 15:05 → TELE 19:59 → TELE-WESTW 23:33
PROVIDERS: ADMIT Hospitalist; ATTEND Internal Medicine
DX: I48.91 Unspecified atrial fibrillation (principal); K57.91 Diverticulosis of intestine, part unspecified, without perforation or abscess with bleeding; D68.9 Coagulation defect, unspecified; I50.32 Chronic diastolic (congestive) heart failure; E87.6 Hypokalemia; E89.0 Postprocedural hypothyroidism; Z96.641 Presence of right artificial hip joint; Z20.822 Contact with and (suspected) exposure to COVID-19; I11.0 Hypertensive heart disease with heart failure; Z79.01 Long term (current) use of anticoagulants; Z88.0 Allergy status to penicillin; Z88.2 Allergy status to sulfonamides; Z88.8 Allergy status to other drugs, medicaments and biological substances; Z90.49 Acquired absence of other specified parts of digestive tract; Z90.710 Acquired absence of both cervix and uterus; Z82.49 Family history of ischemic heart disease and other diseases of the circulatory system
CPT/HCPCS: 36415; 74176; 80048; 80053; 80162; 81001; 82270; 82962; 83690; 83735; 83880; 84100; 84132; 84439; 84443; 85025; 85048; 87045; 87177; 87426; 87427; 87493; 93005; 93306; 96374; 96375; G0378; J2001; J7060

== ENCOUNTER → 2022-09-08 | Outpatient (CLI) | payer OTHER ==
[~2022-09-08] MED LIST changes: +DIGO1TAB48 PO; +DILT120C12 PO; -FAMO-161 PO; -LEVO750T8 PO; -METR500T PO; -PROBTAB12 OR; -SUCR1SUS10 PO
== END | disposition home or self-care (01) ==
LOC: LAB 16:01
PROVIDERS: ATTEND Internal Medicine Gastroenterology
DX: R19.7 Diarrhea, unspecified (principal)
CPT/HCPCS: 85048; 87045; 87427; 87493

== ENCOUNTER → 2023-01-29 | Outpatient (CLI) | payer OTHER ==
[~2023-01-29] MED LIST changes: +GABA-1250 PO; -GABA300C10 PO
[2023-01-29 11:56] LABS: Alanine Aminotransferase 17 U/L (7-40); Albumin 4.5 g/dL (3.2-4.8); Alkaline Phosphatase 53 U/L (46-116); Anion Gap 5 (5-15); Aspartate Aminotransferase 23 U/L (13-40); BUN/Creatinine Ratio 17.1 (10.0-20.0); Bilirubin, Total 1.3 mg/dL (0.2-1.0); Blood Urea Nitrogen 13 mg/dL (9-23); Calcium 9.6 mg/dL (8.7-10.4); Carbon Dioxide 31 mmol/L (20-30); Chloride 106 mmol/L (98-107); Glucose 122 mg/dL (74-106); Potassium 3.9 mmol/L (3.5-5.1); Sodium 142 mmol/L (136-145); Total Protein 6.6 g/dL (5.7-8.2)
[2023-01-29 13:44] LABS: LDL Cholesterol 78 mg/dL (< 100); Triglycerides 74 mg/dL (< 150)
[2023-01-29 13:45] LABS: Bilirubin, Direct 0.4 mg/dL (<0.3); Cholesterol 141 mg/dL (< 200); HDL Cholesterol 60 mg/dL (40-59)
== END | disposition home or self-care (01) ==
LOC: LAB 10:49
PROVIDERS: ATTEND Specialist
DX: E11.8 Type 2 diabetes mellitus with unspecified complications (principal); I10 Essential (primary) hypertension; R94.5 Abnormal results of liver function studies; D64.9 Anemia, unspecified; E03.9 Hypothyroidism, unspecified; E78.5 Hyperlipidemia, unspecified
CPT/HCPCS: 36415; 80048; 80061; 80076; 83036; 84443

== ENCOUNTER 2023-06-17 11:08 | Day surgery (SDC) | payer MEDICAID ==
[2023-06-12 13:28] LABS: Basophils # (auto) 0 10 ^3/uL (0-0.2); Basophils % (auto) 0.9 % (0.0-2.0); Eosinophils # (auto) 0.1 10 ^3/uL (0-0.8); Eosinophils % (auto) 1.6 % (0.0-7.0); Hemoglobin 14.2 g/dL (12.2-16.2); Lymphocytes # (auto) 1.6 10 ^3/uL (0.4-5.4); Lymphocytes % (auto) 30.4 % (10.0-50.0); Mean Corpuscular Hemoglobin 32.6 pg (28.0-32.0); Mean Corpuscular Hgb Conc. 32.9 g/dL (32.0-36.0); Mean Corpuscular Volume 99.1 fL (80.0-100.0); Monocytes # (auto) 0.7 10 ^3/uL (0-1.3); Monocytes % (auto) 12.6 % (0.0-12.0); Neutrophils % (auto) 54.5 % (37.0-80.0); Nucleated Red Blood Cells % 0.1 %; Red Blood Cells 4.34 10^6/uL (4.0-5.20); Red Cell Distribution Width 14.3 % (11.8-14.3); White Blood Cell 5.4 10^3/uL (4.4-10.8)
[2023-06-12 13:41] LABS: INR 1.37 (0.9-1.15); Partial Thromboplastin Time 35.4 SEC (24.5-34.5); Prothrombin Time 14.1 sec (9.3-11.8)
[2023-06-12 13:58] LABS: Alanine Aminotransferase 18 U/L (7-40); Alkaline Phosphatase 71 U/L (46-116); Anion Gap 12 (5-15); Aspartate Aminotransferase 27 U/L (13-40); BUN/Creatinine Ratio 11.6 (10.0-20.0); Blood Urea Nitrogen 8 mg/dL (9-23); Calcium 9.5 mg/dL (8.5-10.1); Carbon Dioxide 24 mmol/L (20-30); Chloride 104 mmol/L (98-107); Glucose 114 mg/dL (74-106); Potassium 3.3 mmol/L (3.5-5.1); Sodium 140 mmol/L (136-145)
[2023-06-12 13:59] LABS: Albumin 4.1 g/dL (3.2-4.8); Bilirubin, Total 1.3 mg/dL (0.2-1.0); Total Protein 6.5 g/dL (5.7-8.2)
[~2023-06-17] VITALS: Ht 172.7 cm; Wt 68.0 kg
[~2023-06-17 11:08] MED LIST changes: -DIGO1TAB48 PO; -DILT120C12 PO
[2023-06-17] MEDS ORDERED: SODIUM CHLORIDE LOCK 10 ML ONE (11:21)
[2023-06-17 13:59] VITALS: O2SAT 97
[2023-06-17] MEDS: diphenhdrAMINE HCL 50 MG/1 ML VL ONE (14:04)
[2023-06-17] MEDS: fentaNYL CITRATE 100 MCG/2 ML VL ONE (14:04)
[2023-06-17] MEDS: MIDAZOLAM HCL 5 MG/ML-1ML VIAL ONE (14:04)
[2023-06-17 14:20] VITALS: TEMP 97.6; O2SAT 96
[2023-06-17 15:15] VITALS: BP 120/62; PULSE 120; RESP 20; O2SAT 95
== END 2023-06-17 15:31 | disposition home or self-care (01) ==
LOC: GI 11:08
PROVIDERS: ATTEND Internal Medicine Gastroenterology
DX: K57.32 Diverticulitis of large intestine without perforation or abscess without bleeding (principal); R19.4 Change in bowel habit; D12.8 Benign neoplasm of rectum; D12.5 Benign neoplasm of sigmoid colon; K57.30 Diverticulosis of large intestine without perforation or abscess without bleeding; K64.1 Second degree hemorrhoids; K21.9 Gastro-esophageal reflux disease without esophagitis; Z88.0 Allergy status to penicillin; Z88.1 Allergy status to other antibiotic agents; Z88.2 Allergy status to sulfonamides; Z90.710 Acquired absence of both cervix and uterus; Z98.890 Other specified postprocedural states
CPT/HCPCS: 36415; 45385; 80053; 85025; 85610; 85730; J1200; J2250; J3010

== ENCOUNTER → 2023-10-26 | Outpatient (CLI) | payer MEDICAID ==
[~2023-10-26] MED LIST changes: +POTA-36 PO; -POTA10TA51 PO
[2023-10-26 12:47] LABS: Urine Bacteria FEW /hpf (None Seen); Urine Blood Negative /uL (Negative); Urine Clarity Turbid (Clear); Urine Color Yellow (Yellow); Urine Hyaline Cast FEW /lpf (0 - 2); Urine Mucus FEW (None Seen); Urine Protein, UAD 1+ (Negative); Urine Specific Gravity 1.027 (1.001-1.035); Urine Urobilinogen 3 mg/dL (Negative); Urine WBC 1 /hpf (0 - 5); Urine pH 5.5 (5.0-9.0)
[2023-10-26 12:54] LABS: Basophils # (auto) 0 10 ^3/uL (0-0.2); Basophils % (auto) 0.8 % (0.0-2.0); Eosinophils # (auto) 0.1 10 ^3/uL (0-0.8); Eosinophils % (auto) 2.1 % (0.0-7.0); Hemoglobin 15.1 g/dL (12.2-16.2); Lymphocytes # (auto) 1.5 10 ^3/uL (0.4-5.4); Lymphocytes % (auto) 29.4 % (10.0-50.0); Mean Corpuscular Hemoglobin 33.7 pg (28.0-32.0); Mean Corpuscular Hgb Conc. 33.7 g/dL (32.0-36.0); Mean Corpuscular Volume 100.2 fL (80.0-100.0); Monocytes # (auto) 0.6 10 ^3/uL (0-1.3); Monocytes % (auto) 11.3 % (0.0-12.0); Neutrophils # (auto) 2.8 10 ^3/uL (1.6-8.6); Neutrophils % (auto) 56.4 % (37.0-80.0); Red Blood Cells 4.49 10^6/uL (4.0-5.20); Red Cell Distribution Width 14.2 % (11.8-14.3)
[2023-10-26 13:20] LABS: Alanine Aminotransferase 12 U/L (7-40); Albumin 4.2 g/dL (3.2-4.8); Alkaline Phosphatase 78 U/L (46-116); Anion Gap 4 (5-15); Aspartate Aminotransferase 21 U/L (13-40); BUN/Creatinine Ratio 12.1 (10.0-20.0); Bilirubin, Direct 0.3 mg/dL (<0.3); Bilirubin, Total 0.8 mg/dL (0.2-1.0); Blood Urea Nitrogen 8 mg/dL (9-23); Calcium 9.6 mg/dL (8.5-10.1); Carbon Dioxide 31 mmol/L (20-30); Chloride 105 mmol/L (98-107); Cholesterol 181 mg/dL (< 200); Glucose 121 mg/dL (74-106); HDL Cholesterol 56 mg/dL (40-59); LDL Cholesterol 118 mg/dL (< 100); Potassium 3.8 mmol/L (3.5-5.1); Sodium 140 mmol/L (136-145); Total Protein 6.9 g/dL (5.7-8.2); Triglycerides 89 mg/dL (< 150)
[2023-10-26 13:35] LABS: Erythrocyte Sedimentation Rate 17 mm/hr (0-20)
[2023-10-26 13:38] LABS: Free T4 (Free Thyroxine) 1.38 ng/dL (0.89-1.76)
== END | disposition home or self-care (01) ==
LOC: LAB 12:13
PROVIDERS: ATTEND Internal Medicine
DX: I10 Essential (primary) hypertension (principal); I48.0 Paroxysmal atrial fibrillation; M46.00 Spinal enthesopathy, site unspecified; E11.9 Type 2 diabetes mellitus without complications; E78.5 Hyperlipidemia, unspecified; D64.9 Anemia, unspecified; E03.9 Hypothyroidism, unspecified; R68.89 Other general symptoms and signs
CPT/HCPCS: 36415; 80053; 80061; 81001; 82248; 82607; 84439; 84443; 85025; 85652

== ENCOUNTER 2024-01-16 11:50 | Emergency (ER) | payer OTHER, MEDICAID ==
[~2024-01-16] VITALS: Ht 172.7 cm; Wt 68.1 kg
[2024-01-16 13:45] LABS: Basophils # (auto) 0.1 10 ^3/uL (0-0.2); Basophils % (auto) 1.1 % (0.0-2.0); Eosinophils # (auto) 0.1 10 ^3/uL (0-0.8); Eosinophils % (auto) 1.6 % (0.0-7.0); Hematocrit 42.6 % (36.0-46.0); Hemoglobin 14.6 g/dL (12.2-16.2); Lymphocytes # (auto) 1.5 10 ^3/uL (0.4-5.4); Lymphocytes % (auto) 21.7 % (10.0-50.0); Mean Corpuscular Hemoglobin 33.3 pg (28.0-32.0); Mean Corpuscular Hgb Conc. 34.2 g/dL (32.0-36.0); Mean Corpuscular Volume 97.4 fL (80.0-100.0); Monocytes # (auto) 0.8 10 ^3/uL (0-1.3); Monocytes % (auto) 11.4 % (0.0-12.0); Neutrophils # (auto) 4.4 10 ^3/uL (1.6-8.6); Neutrophils % (auto) 64.2 % (37.0-80.0); Nucleated Red Blood Cells % 0.1 %; Platelet Count (auto) 271 10^3/uL (140-450); Red Blood Cells 4.38 10^6/uL (4.0-5.20); Red Cell Distribution Width 14.1 % (11.8-14.3); White Blood Cell 6.9 10^3/uL (4.4-10.8)
[2024-01-16 14:05] LABS: Alanine Aminotransferase 16 U/L (7-40); Albumin 4.1 g/dL (3.2-4.8); Alkaline Phosphatase 65 U/L (46-116); Anion Gap 8 (5-15); Aspartate Aminotransferase 16 U/L (13-40); BUN/Creatinine Ratio 21.1 (10.0-20.0); Blood Urea Nitrogen 15 mg/dL (9-23); Calcium 9.4 mg/dL (8.7-10.4); Carbon Dioxide 24 mmol/L (20-30); Chloride 105 mmol/L (98-107); Glucose 116 mg/dL (74-106); Lipase 30 U/L (12-53); Potassium 4.2 mmol/L (3.5-5.1); Sodium 137 mmol/L (136-145)
[2024-01-16 14:06] LABS: Bilirubin, Total 1.2 mg/dL (0.2-1.0); Total Protein 6.1 g/dL (5.7-8.2)
[2024-01-16 16:43] LABS: Urine Bacteria MOD /hpf (None Seen); Urine Blood Negative /uL (Negative); Urine Clarity Clear (Clear); Urine Color Yellow (Yellow); Urine Hyaline Cast MANY /lpf (0 - 2); Urine Hyphae Yeast PRESENT /hpf; Urine Mucus FEW (None Seen); Urine Protein, UAD Negative (Negative); Urine Specific Gravity 1.014 (1.001-1.035); Urine Urobilinogen 2 mg/dL (Negative); Urine WBC 3 /hpf (0 - 5); Urine pH 5.5 (5.0-9.0)
[2024-01-16] MEDS ORDERED: NITR-87 PO (17:30)
[2024-01-16 18:10] VITALS: BP 119/66; PULSE 76; RESP 16; TEMP 98; O2SAT 95
== END 2024-01-16 18:15 | disposition home or self-care (01) ==
LOC: ER 11:50 → EDBD 11:50 → ER 18:15
DX: N39.0 Urinary tract infection, site not specified (principal); R51.9 Headache, unspecified; I11.0 Hypertensive heart disease with heart failure; I50.9 Heart failure, unspecified; I48.91 Unspecified atrial fibrillation; Z98.890 Other specified postprocedural states; Z90.710 Acquired absence of both cervix and uterus; Z88.0 Allergy status to penicillin; Z88.2 Allergy status to sulfonamides; Z79.899 Other long term (current) drug therapy
CPT/HCPCS: 36415; 74176; 80053; 81001; 83605; 83690; 84484; 85025; 93005

== ENCOUNTER 2024-07-03 13:14 | Inpatient (IN) | payer OTHER, MEDICAID ==
[~2024-07-03] VITALS: Ht 170.2 cm; Wt 69.0 kg
[~2024-07-03 13:14] MED LIST changes: +CHOLPOW4 PO; +LINA290C PO; +NITR-87 PO; +POTA-228 PO
--- NOTE | 2024-07-03 13:58 | ED.PDOC ---
SOB-HPI HPI Comments 89 year old female GEOFFREY presents to the ED with chief complaint of SOB. EMS reports patient has been experiencing SOB with associated cough and wheezing for the past 2 days. EMS relays that they provided the patient 2 breathing treatments on route with relief in wheezing. Patient denies any chest pain, headache, dizziness, hemoptysis, or N/V. Chief Complaint: Shortness of Breath Time Seen by MD: 13:54 Primary Care Provider: CLIF Vazquez notes: Nurses Notes, Water Plant Maintenance Mechanic Notes, Medications, Allergies Information Source: Patient, Emergency Med Personnel Mode of Arrival: EMS Severity: Moderate Timing: Days Duration: Since onset Context: At Rest PE Risk Factors: None History of: None Prehospital treatment: Breathing Tx, IVF, Oxygen Modifying Factors: Nothing Associated Signs and Symptoms: Cough If cough with SOB: Non-Productive Past Medical History PAST MEDICAL HISTORY: AFIB, CHF, GERD, High Lipids, HTN, Thyroid Surgical History: Appendectomy, Cholecystectomy, Hysterectomy, Pacemaker, Thyroidectomy, Tonsillectomy [employer] 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 Family History Family History: Reviewed,noncontributory to illness Social History Smoker: Non-Smoker Alcohol: Occasionally Drugs: Denies Drug Use Lives In: Home Constitutional: denies: chills, diaphoresis, fatigue, fever, malaise, sweats, weakness, others EENTM: denies: blurred vision, double vision, ear bleeding, ear discharge, ear drainage, ear pain, ear ringing, eye pain, eye redness, hearing loss, mouth pain, mouth swelling, nasal discharge, nose bleeding, nose congestion, nose pain, photophobia, tearing, throat pain, throat swelling, voice changes, others Respiratory: reports: cough, shortness of breath, wheezing; denies: hemoptysis, orthopnea, SOB at rest, SOB with excertion, stridor, others Cardiovascular: denies: chest pain, dizzy spells, diaphoresis, Dyspnea on exertion, edema, irregular heart beat, left arm pain, lightheadedness, palpitations, PND, syncope, others Gastrointestinal: denies: abdomen distended, abdominal pain, blood streaked bowels, constipated, diarrhea, dysphagia, difficulty swallowing, hematemesis, melena, nausea, poor appetite, poor fluid intake, rectal bleeding, rectal pain, vomiting, others Genitourinary: denies: abnormal vagina bleeding, burning, dyspareunia, dysuria, flank pain, frequency, hematuria, incontinence, pain, , vagina discharge, urgency, others Neurological: denies: dizziness, fainting, headache, left sided numbness, left sided weakness, numbness, paresthesia, pre-existing deficit, right sided numbness, right sided weakness, seizure, speech problems, tingling, tremors, weakness, others Musculoskeletal: denies: back pain, gout, joint pain, joint swelling, muscle pain, muscle stiffness, neck pain, others Integumetry: denies: bruises, change in color, change in hair/nails, dryness, laceration, lesions, lumps, rash, wounds, others Allergic/Immunocompromised: denies: Difficulty Healing, Frequent Infections, Hives, Itching, others Hematologic/Lymphatic: denies: anemia, blood clots, easy bleeding, easy bruising, swollen glands, others Endocrine: denies: excessive hunger, excessive sweating, excessive thirst, excessive urination, flushing, intolerance to cold, intolerance to heat, unexplained weight gain, unexplained weight loss, others Psychiatric: denies: anxiety, bipolar disorder, depression, hopeless, panic disorder, schizophrenia, sleepless, suicidal, others All Other Systems: Reviewed and Negative Physical Exam General Appearance: No Apparent Distress, Normal HEENT: Normal ENT Inspection, PERRL/EOMI Neck: Full Range of Motion, Non-Tender, Normal, Normal Inspection Respiratory: Chest Non-Tender, No Accessory Muscle Use, Wheezing, Other (Tachypnea) Cardiovascular: No Edema, No JVD, No Murmur, No Gallop, Normal Peripheral Pulses, Regular Rate/Rhythm Breast Exam: Deferred Gastrointestinal: No Organomegaly, Non Tender, No Pulsatile Mass, Normal Bowel Sounds, Soft Genitalia: Deferred Pelvic: Deferred Rectal: Deferred Extremities: No calf tenderness, Normal capillary refill, Normal inspection, Normal range of motion, Non-tender, No pedal edema Musculoskeletal : Apperance: Normal Neurologic: Alert, mirror maker II-XII nml as Tested, No Motor Deficits, Normal Affect, Normal Mood, No Sensory Deficits Cerebellar Function: Normal Reflexes: Normal Skin: Dry, Normal Color, Warm Lymphatic: No Adenopathy Was a procedure done? Was a procedure done?: No Differential Dx Differential Diagnosis: Asthma, Bronchitis, CHF, COPD, Pneumonia, Sinusitis, URI X-Ray, Labs, Meds, VS Vital Signs Date Time Temp Pulse Resp B/P (MAP) Pulse Ox O2 Delivery O2 Flow Rate FiO2 07/03/24 13:31 153 07/03/24 13:19 97.9 80 20 158/100 (119) 95 Lab Test 07/03/24 15:15 07/03/24 14:09 Range/Units Troponin I High Sensitivity < 3 L < 3 L </=34 ng/L White Blood Count 4.0 L 4.4-10.8 10^3/uL Red Blood Count 5.02 4.0-5.20 10^6/uL Hemoglobin 15.8 12.2-16.2 g/dL Hematocrit 47.7 H 36.0-46.0 % Mean Corpuscular Volume 95.0 80.0-100.0 fL Mean Corpuscular Hemoglobin 31.5 28.0-32.0 pg Mean Corpuscular Hemoglobin Concent 33.2 32.0-36.0 g/dL Red Cell Distribution Width 14.7 H 11.8-14.3 % Platelet Count 209 140-450 10^3/uL Mean Platelet Volume 7.5 6.9-10.8 fL Neutrophils (%) (Auto) 58.6 37.0-80.0 % Lymphocytes (%) (Auto) 23.8 10.0-50.0 % Monocytes (%) (Auto) 15.3 H 0.0-12.0 % Eosinophils (%) (Auto) 1.6 0.0-7.0 % Basophils (%) (Auto) 0.7 0.0-2.0 % Neutrophils # (Auto) 2.3 1.6-8.6 10 ^3/uL Lymphocytes # (Auto) 0.9 0.4-5.4 10 ^3/uL Monocytes # (Auto) 0.6 0-1.3 10 ^3/uL Eosinophils # (Auto) 0.1 0-0.8 10 ^3/uL Basophils # (Auto) 0 0-0.2 10 ^3/uL Nucleated Red Blood Cells 0.3 % Sodium Level 139 136-145 mmol/L Potassium Level 3.6 3.5-5.1 mmol/L Chloride Level 104 98-107 mmol/L Carbon Dioxide Level 24 20-31 mmol/L Anion Gap 11 5-15 Blood Urea Nitrogen 7 L 9-23 mg/dL Creatinine 0.54 L 0.550-1.02 mg/dL Glomerular Filtration Rate Calc 89 >90 mL/min BUN/Creatinine Ratio 13.0 10.0-20.0 Serum Glucose 111 H 74-106 mg/dL Calcium Level 9.0 8.7-10.4 mg/dL B-Type Natriuretic Peptide 185.55 0-100 pg/mL Chest XR: FINDINGS: No pneumothorax, consolidative infiltrates, or pulmonary edema. The heart is not enlarged. Left chest pacemaker is re-identified. Contour irregularity of the aortic arch is re-identified. IMPRESSION: 1. No acute intrathoracic process. 2. Stable left chest pacemaker and contour irregularity of the aortic arch. Time of 1ST Reevaluation: 14:54 Reevaluation 1ST: Unchanged Patient Education/Counseling: Diagnosis, Treatment Family Education/Counseling: No Family Present Additional Information The following tests were ordered, and results were reviewed by me: troponin, CBC, BMP, BNP, EKG, Chest XR Additional Information was gathered from interviewing the following independent historians: EMS I reviewed and agreed with the following test results read by other providers: Chest XR I discussed treatment and results with medical personnel. Departure 1 Departure Time of Disposition: 17:15 (Patient with a worsening shortness of breath. We will admit patient for further workup) Impression: Primary Impression: Shortness of breath Additional Impression: Generalized weakness Disposition: ADMITTED INPATIENT Admit to: Med Surg Condition: Serious Critical Care Note Critical Care Time?: No Stability Stability form required: No Heart Score Heart Score: Heart Score Response (Comments) Value History N/A 0 EKG N/A 0 Age N/A 0 Risk Factors N/A 0 Troponin N/A 0 Total 0 I personally scribed for SANDRINE EDGAR MD ([email or web address]) on 07/03/24 at 13:58. Electronically submitted by Wolfgang Jacbos ([email or web address]). I personally scribed for SANDRINE EDGAR MD ([email or web address]) on 07/03/24 at 15:14. Electronically submitted by Wolfgang Jacobs ([email or web address]). SANDRINE EDGAR MD Jul 03, 2024 13:58
--- NOTE | 2024-07-03 14:04 | DVH ---
EXAM: XY CHEST PORTABLE HISTORY: sob COMPARISON: CHEST XRAY 1 VIEW on DOS: 07/24/21, chest CT dated 07/27/2021 TECHNIQUE: Frontal view of the chest was performed. FINDINGS: No pneumothorax, consolidative infiltrates, or pulmonary edema. The heart is not enlarged. Left ches t pacemaker is re-identified. Contour irregularity of the aortic arch is re-identified. IMPRESSION: 1. No acute intrathoracic process. 2. Stable left chest pacemaker and contour irregularity of the aortic arch.
[2024-07-03 14:34] LABS: Basophils # (auto) 0 10 ^3/uL (0-0.2); Basophils % (auto) 0.7 % (0.0-2.0); Eosinophils # (auto) 0.1 10 ^3/uL (0-0.8); Eosinophils % (auto) 1.6 % (0.0-7.0); Hematocrit 47.7 % (36.0-46.0); Hemoglobin 15.8 g/dL (12.2-16.2); Lymphocytes # (auto) 0.9 10 ^3/uL (0.4-5.4); Lymphocytes % (auto) 23.8 % (10.0-50.0); Mean Corpuscular Hemoglobin 31.5 pg (28.0-32.0); Mean Corpuscular Hgb Conc. 33.2 g/dL (32.0-36.0); Monocytes # (auto) 0.6 10 ^3/uL (0-1.3); Monocytes % (auto) 15.3 % (0.0-12.0); Neutrophils # (auto) 2.3 10 ^3/uL (1.6-8.6); Neutrophils % (auto) 58.6 % (37.0-80.0); Nucleated Red Blood Cells % 0.3 %; Platelet Count (auto) 209 10^3/uL (140-450); Red Blood Cells 5.02 10^6/uL (4.0-5.20); Red Cell Distribution Width 14.7 % (11.8-14.3)
[2024-07-03 14:42] LABS: Chloride 104 mmol/L (98-107); Potassium 3.6 mmol/L (3.5-5.1); Sodium 139 mmol/L (136-145)
[2024-07-03 14:43] LABS: Anion Gap 11 (5-15); Carbon Dioxide 24 mmol/L (20-31)
[2024-07-03 14:51] LABS: Blood Urea Nitrogen 7 mg/dL (9-23); Glucose 111 mg/dL (74-106)
[2024-07-03] MEDS ORDERED: ONDANSETRON HCL 4 MG/2 ML VIAL IV PRN (19:30)
[2024-07-03 21:10] VITALS: BP 116/85; PULSE 89; RESP 17; TEMP 97.7; O2SAT 96
[2024-07-03 21:38] VITALS: PULSE 89; RESP 17; O2SAT 96
[2024-07-03 22:10] VITALS: BP 128/89; PULSE 114; RESP 22; TEMP 97.6; O2SAT 94
[2024-07-03 22:12] VITALS: PULSE 114; RESP 22; O2SAT 99
[2024-07-03 22:15] VITALS: O2SAT 93
[2024-07-03] MEDS: SOTALOL HCL 80 MG TAB PO SCH (22:25)
[2024-07-03] MEDS: ATORVASTATIN 20 MG TAB PO SCH (22:27)
[2024-07-03] MEDS: ACETAMINOPHEN 325 MG TAB PO PRN (22:28)
[2024-07-03] MEDS ORDERED: guaiFENesin-DM 100/10mg/5ml SYR PO PRN (23:15)
--- NOTE | 2024-07-03 23:15 | DVHHP2 ---
History of Present Illness Reason for Visit: Shortness for breath History of Present Illness 81-year-old female presents for evaluation of shortness for breath. Patient reports a three day history of shortness for breath with cough. Denies fever or chills. No nausea or vomiting. No abdominal pain. Past Medical History Dyslipidemia, hypertension, thyroid, GERD, CHF, AFib Past Surgical History Hysterectomy, pacemaker thyroidectomy, tonsillectomy, cholecystectomy Family History Noncontributory Smoke: No ALCOHOL: occassional Drugs: None Lives: with Family Review of Systems Review of Systems Review of systems are currently negative otherwise addressed in HPI. Allergies: Coded Allergies: Penicillins (Verified Allergy, Unknown, 03/08/21) Sulfa Drugs (Verified Allergy, Unknown, 03/08/21) Medications Current Medications Medications Dose Ordered Sig/Francisco J Route Start Time Stop Time Status Last Admin Dose Admin Sotalol HCl 80 mg Q12HR PO 07/03/24 22:00 07/03/24 22:25 80 MG Atorvastatin Calcium 20 mg HS PO 07/03/24 22:00 07/03/24 22:27 20 MG Levothyroxine Sodium 112 mcg QAM@0600 PO 07/04/24 06:00 Rivaroxaban 15 mg DAILY PO 07/04/24 10:00 Albuterol 2.5 mg Q6HPRN PRN NEB 07/03/24 19:30 Aspirin 81 mg DAILY PO 07/04/24 10:00 Ondansetron HCl 4 mg Q4HP PRN IV 07/03/24 19:30 Acetaminophen 650 mg Q6HP PRN PO 07/03/24 19:30 07/03/24 22:28 650 MG Exam Vital Signs Vital Signs Date Time Temp Pulse Resp B/P (MAP) Pulse Ox O2 Delivery O2 Flow Rate FiO2 07/03/24 22:28 97.7 07/03/24 22:25 114 128/89 07/03/24 22:15 93 Room Air 0.0 07/03/24 22:15 21 07/03/24 21:51 18 Exam Gen: 89-year-old female in mild distress Skin: Warm, dry, normal color and texture, no rash. HEENT: Normocephalic atraumatic, mucous membranes moist and pink. Neck: Cervical and supraclavicular nodes normal without enlargement, trachea is midline, thyroid gland is normal without masses. Pulmonary: Clear to auscultation and percussion bilaterally. Cardiac: Regular rate and rhythm. No murmur Abdomen: Soft, nontender, nondistended, bowel sounds present all 4 quadrants, no guarding, no rigidity, no organomegaly. Extremities: No cyanosis, clubbing, no edema Neuro: Cranial nerves II through XII grossly intact, normal affect and speech, no focal motor deficits. Labs/Xrays ORDERING PHYSICIAN: SANDRINE EDGAR MD PROCEDURE(s): CXRP - CHEST PORTABLE REASON: sob ORDER NUMBER(s): [id number], ACCESSION NUMBER(s): [id number] EXAM: XY CHEST PORTABLE HISTORY: sob COMPARISON: CHEST XRAY 1 VIEW on DOS: 07/24/21, chest CT dated 07/27/2021 TECHNIQUE: Frontal view of the chest was performed. FINDINGS: No pneumothorax, consolidative infiltrates, or pulmonary edema. The heart is not enlarged. Left chest pacemaker is re-identified. Contour irregularity of the aortic arch is re-identified. IMPRESSION: 1. No acute intrathoracic process. 2. Stable left chest pacemaker and contour irregularity of the aortic arch. Labs Test 07/03/24 19:39 07/03/24 14:09 Range/Units D-Dimer, Quantitative 1.10 H 0.0-0.49 mg/L FEU Troponin I High Sensitivity < 3 L </=34 ng/L White Blood Count 4.0 L 4.4-10.8 10^3/uL Red Blood Count 5.02 4.0-5.20 10^6/uL Hemoglobin 15.8 12.2-16.2 g/dL Hematocrit 47.7 H 36.0-46.0 % Mean Corpuscular Volume 95.0 80.0-100.0 fL Mean Corpuscular Hemoglobin 31.5 28.0-32.0 pg Mean Corpuscular Hemoglobin Concent 33.2 32.0-36.0 g/dL Red Cell Distribution Width 14.7 H 11.8-14.3 % Platelet Count 209 140-450 10^3/uL Mean Platelet Volume 7.5 6.9-10.8 fL Neutrophils (%) (Auto) 58.6 37.0-80.0 % Lymphocytes (%) (Auto) 23.8 10.0-50.0 % Monocytes (%) (Auto) 15.3 H 0.0-12.0 % Eosinophils (%) (Auto) 1.6 0.0-7.0 % Basophils (%) (Auto) 0.7 0.0-2.0 % Neutrophils # (Auto) 2.3 1.6-8.6 10 ^3/uL Lymphocytes # (Auto) 0.9 0.4-5.4 10 ^3/uL Monocytes # (Auto) 0.6 0-1.3 10 ^3/uL Eosinophils # (Auto) 0.1 0-0.8 10 ^3/uL Basophils # (Auto) 0 0-0.2 10 ^3/uL Nucleated Red Blood Cells 0.3 % Sodium Level 139 136-145 mmol/L Potassium Level 3.6 3.5-5.1 mmol/L Chloride Level 104 98-107 mmol/L Carbon Dioxide Level 24 20-31 mmol/L Anion Gap 11 5-15 Blood Urea Nitrogen 7 L 9-23 mg/dL Creatinine 0.54 L 0.550-1.02 mg/dL Glomerular Filtration Rate Calc 89 >90 mL/min BUN/Creatinine Ratio 13.0 10.0-20.0 Serum Glucose 111 H 74-106 mg/dL Calcium Level 9.0 8.7-10.4 mg/dL B-Type Natriuretic Peptide 185.55 0-100 pg/mL Assessment/Plan Assessment/Plan Assessment acute respiratory distress Hypertension CHF History of AFib Status post pacemaker Thyroid Admit the patient to Med surge to the hospitalist CT chest pending Resume home medications Med nebs Continue treatment per orders. Plan discussed with: Patient My Orders Orders - WES SAEED AGACNP Procedure Category Date Status Time Sotalol Hcl (Betapace) PHA 07/03/24 In Process 22:00 Atorvastatin (Lipitor) PHA 07/03/24 In Process 22:00 Levothyroxine Tablet PHA 07/04/24 In Process (Synthroid Tablet) 06:00 Rivaroxaban Tablet PHA 07/04/24 In Process (Xarelto Tablet) 10:00 Albuterol Medneb PHA 07/03/24 In Process (Ventolin Medneb) 19:30 Aspirin Tablet PHA 07/04/24 In Process 10:00 Basic Metabolic Panel LAB 07/04/24 Verified 04:00 Admit ADMIT 07/03/24 Transmitted 19:17 Ondansetron Hcl PHA 07/03/24 In Process (Zofran) 19:30 Cardiac DIET 07/04/24 Transmitted Diet-2gna,Lofat,Lochol Breakfast Echo 2d Mode Cardiac US 07/03/24 Logged DOP 19:17 Condition: Stable ENEDINA 07/03/24 In Process 19:17 Acetaminophen Tablet PHA 07/03/24 In Process (Tylenol Tablet) 19:30 Bedrest With Bathroom ENEDINA 07/03/24 In Process Privileg 19:[address] 07/03/24 Logged Contrast 23:07 Thyroid Stimulating LAB 07/03/24 Logged Hormone 23:09 Lactic Acid W/ Reflex LAB 07/03/24 Transmitted Order 23:09 Guaifenesin-Dextromet PHA 07/03/24 Transmitted Liquid (Robitussin 23:15 Date of Service: Jul 03, 2024 Billing Provider: WES SAEED Common Visit Codes: [id number] INP/OBS CARE (HIGH) WES SAEED Jul 03, 2024 23:15
[2024-07-04] VITALS (10 sets, daily range): BP systolic 122–152; BP diastolic 73–101; PULSE 89–139; RESP 14–24; TEMP 97.5–98.4; O2SAT 91–95
[2024-07-04] MEDS ORDERED: IOHEXOL 350 MG/ML 100ML IJ ONE (00:30)
--- NOTE | 2024-07-04 00:55 | DVH ---
CTA Chest with intravenous contrast INDICATION: r/o pe COMPARISON: None TECHNIQUE: Multidetector spiral CTA of the chest was performed of the chest with intravenous contrast . PULMONARY ANGIOGRAPHY PROTOCOL was utilized using a bolus-tracking technique centered on the main p ulmonary artery. Axial, coronal and sagittal multiplanar and MIP reformats were performed. Radiation Dose : 1. Chest: CTDI volume is 8.88 mGy. Dose-length product is 439.09 mGy*cm The dose indicators for CT are the volume Computed Tomography (CT) Dose Index (CTDIvol) and the Dose Length Product (DLP), and are measured in units of mGy and mGy-cm, respectively. These indicators are not patient dose, but values generated from the CT scanner acquisition factors. The report includes radiation exposure data for exposures received during this examination. Findings: Pulmonary artery: There is filling defect in the right main pulmonary artery consistent with pulmonar y embolism. Lower neck: Unremarkable. Lungs: No focal consolidation, pleural effusion or pneumothorax. Pleura: No pleural effusion or pneumothorax. Heart/Vascular Structures: Normal heart size. No pericardial effusion. No significant abnormality dem onstrated in the thoracic aorta. Lymph Nodes: No evidence of lymphadenopathy. Musculoskeletal: No acute osseous abnormality identified. Bones appear osteopenic. Mild old compressi on fractures of L1 and L2 vertebral bodies. Soft tissues: Unremarkable. IMPRESSION: Positive for pulmonary embolism with filling defect noted in right main pulmonary artery.
[2024-07-04] MEDS: LEVOTHYROXINE SODIUM 112 MCG TAB PO SCH (06:04)
[2024-07-04 07:44] LABS: Chloride 103 mmol/L (98-107); Potassium 4.1 mmol/L (3.5-5.1); Sodium 137 mmol/L (136-145)
[2024-07-04 07:45] LABS: Anion Gap 9 (5-15); Carbon Dioxide 25 mmol/L (20-31)
[2024-07-04 07:46] LABS: Calcium 9.2 mg/dL (8.7-10.4)
[2024-07-04 07:50] LABS: BUN/Creatinine Ratio 13.2 (10.0-20.0); Glucose 82 mg/dL (74-106)
[2024-07-04 07:51] LABS: Blood Urea Nitrogen 7 mg/dL (9-23)
[2024-07-04] MEDS ORDERED: HEPARIN SODIUM (PORCINE) 5000 UNITS/ML 1ML VIAL IV ONE (08:00)
[2024-07-04] MEDS ORDERED: HEPARIN DRIP/D5W 100UNITS/ML 250 ML IV SCH (08:00)
[2024-07-04 08:24] LABS: Basophils # (auto) 0 10 ^3/uL (0-0.2); Basophils % (auto) 0.9 % (0.0-2.0); Eosinophils # (auto) 0 10 ^3/uL (0-0.8); Eosinophils % (auto) 0.7 % (0.0-7.0); Hematocrit 42.3 % (36.0-46.0); Hemoglobin 14.3 g/dL (12.2-16.2); Lymphocytes # (auto) 1.3 10 ^3/uL (0.4-5.4); Lymphocytes % (auto) 30.8 % (10.0-50.0); Mean Corpuscular Hgb Conc. 33.8 g/dL (32.0-36.0); Mean Corpuscular Volume 94.9 fL (80.0-100.0); Monocytes # (auto) 0.7 10 ^3/uL (0-1.3); Monocytes % (auto) 17.2 % (0.0-12.0); Neutrophils # (auto) 2.2 10 ^3/uL (1.6-8.6); Neutrophils % (auto) 50.4 % (37.0-80.0); Nucleated Red Blood Cells % 0.2 %; Platelet Count (auto) 184 10^3/uL (140-450); Red Blood Cells 4.45 10^6/uL (4.0-5.20); Red Cell Distribution Width 14.8 % (11.8-14.3); White Blood Cell 4.3 10^3/uL (4.4-10.8)
[2024-07-04 08:42] LABS: INR 1.06 (0.9-1.15); Partial Thromboplastin Time 28.5 SEC (24.5-34.5); Prothrombin Time 11.2 sec (9.3-11.8)
[2024-07-04] MEDS: ENOXAPARIN SOD 100 MG/1 ML SYRINGE SC ONE (09:44)
[2024-07-04] MEDS: ASPirin 81 mg TAB PO SCH (09:44)
[2024-07-04] MEDS ORDERED: RIVAROXABAN 15 MG TAB PO SCH (10:00)
--- NOTE | 2024-07-04 10:05 | DVHSR ---
APPROVED REPORT EXAM: Two-dimensional and M-mode echocardiogram with Doppler and color Doppler. Blood Pressure: 150/88 mmHg INDICATION PE, RV strain RISK FACTORS Height: 5'7", Weight: 147 DIMENSIONS LVDd4.0 (3.8-5.7cm)LA (2D)3.9 (1.9-4.0cm)Aortic Root3.3 (2.0-3.7cm) LVDs2.7 (2.5-4.0cm)LA (MM) (1.9-4.0cm)Aortic Cusp Exc1.3 (1.5-2.0cm) EF (%) 60.0 (55-70%)Rt. Atrium3.6 (1.9-4.0cm)Asc. Aorta cm IVSd0.8 (0.7-1.1cm)RV (D)3.3 (1.8-2.4cm) PWd0.9 (0.7-1.1cm) Mitral Valve MitralMitral Stenosis E/A ratio0.02D MVAcm2 Aortic Valve Aortic ValveAortic Stenosis V10.61m/Majo Mean GR.3mmHg V21.07m/Majo Peak GR.5mmHg LVOT Diameter2.0 (1.8-2.4cm)Doppler AVA1.79cm2 Pulmonic Valve V20.61m/s Tricuspid Valve TR Velocity3.24m/s [id number] Other Information Quality : Technically LimitedRhythm : Technically limited study due to pt heart rate, breathing and body habitus. Conclusion Left ventricle: Left ventricle is normal sized with normal systolic function. LVEF was around 65%. There was no wall motion abnormality. Right ventricle: Right ventricle was mildly dilated with preserved systolic function. Left atrium w as normal size. Right atrium was mildly dilated. Pacing wire was seen in right-sided chambers. Aortic valve: Aortic valve was trileaflet. There was no aortic insufficiency/stenosis. There was tr ezekiel mitral regurgitation. There was [id number] tricuspid regurgitation. Pulmonary valve was n ot well visualized. Right ventricular systolic pressure was assessed at pressure 53 mm Hg. IVC was normal size with nor mal respiratory variation. There was no pericardial effusion.
[2024-07-04] MEDS: SODIUM CHLORIDE 0.9% 250 ML IV ONE (10:15)
[2024-07-04] MEDS: SODIUM CHLORIDE 0.9% 1,000 ML IV SCH (10:15)
--- NOTE | 2024-07-04 10:17 | DVHINCON2 ---
Date of service: Jul 04, 2024 History of Present Illness HPI Patient is a 89-year-old female who presented to the hospital with few days of shortness of breaths and cough. She is poor historian. She does have baseline poor functional capacity. She has been help at home by home care physical therapist. Since arrival, she was found to have pulmonary emboli and Cardiology was called for cardiac aspects of care. She is known to our practice from outside and before. Last visit in the office was August 2023 and she has missed several follow-ups. Does have Biotronik pacemaker. Does have baseline history of atrial fibrillation for which is on 15 mg Xarelto daily. Her compliance to medications is questionable. Home Meds Reported Medications Cholecalciferol (VITAMIN D3) 2,000 Unit Tab, 25 MG PO DAILY, TAB 07/25/21 Gabapentin (Gabapentin) 300 Mg Cap, 300 MG PO BID for 30 Days, MG 03/13/21 Potassium Chloride (POTASSIUM CHLORIDE CR) 10 Meq Tb, 20 MEQ PO DAILY, TAB 03/13/21 Furosemide (Furosemide) 40 Mg Tab, 40 MG PO DAILY for 30 Days 03/13/21 Rivaroxaban (Xarelto Tablet) 15 Mg Tb, 15 MG PO DAILY, TAB 03/13/21 Pravastatin Sodium (PRAVACHOL TABLET) 20 Mg Tb, 1 TAB PO HS, #30 TAB 5 Refills 05/29/20 Sotalol Hcl (Sotalol Hcl (Af)) 80 Mg Tab, 1 TAB PO BID, TAB 05/29/20 Ascorbic Acid (VITAMIN C TABLET) 500 Mg Tb, 1 TAB PO DAILY, #30 TAB 3 Refills 05/29/20 Levothyroxine Sodium (Levothyroxine Sodium) 112 Mcg Tab, 100 MG PO DAILY, #30 TAB 5 Refills 05/29/20 Pantoprazole Sodium Sesquihydr (Protonix) 40 Mg Tab, 40 MG PO DAILY, #30 TAB 05/29/20 Past Medical History Others Past medical history includes atrial fibrillation, diastolic heart failure, GERD, hypertension, hyperlipidemia, hypothyroidism, status post appendectomy/cholecystectomy/thyroidectomy/tonsillectomy. She does have Biotronik pacemaker implanted from before. Patient Family History: FH: congestive heart failure G8 MOTHER FH: myocardial infarction G8 FATHER Family history: Cardiovascular disease G8 MOTHER G8 FATHER Smoker: No Hx (Negative) Alocohol: Moderate Drugs: None Lives with: With family Review of Systems Constitutional: Weakness Pulmonary/Respiratory: Dyspnea, Cough All Other Systems Fourteen point review of systems performed. Pertinent findings as per above and as per HPI. Otherwise negative H&P Exam Vital Signs Vital Signs Date Time Temp Pulse Resp B/P (MAP) Pulse Ox O2 Delivery O2 Flow Rate FiO2 07/04/24 09:44 139 150/101 07/04/24 08:30 98.4 14 94 98.4 07/04/24 07:38 Room Air 07/04/24 07:38 0 21 General Appeara: Cachetic Eye Exam: bilateral eye PERRL Pulmonary/Respiratory: Rhonci Cardiovascular/Chest: Tachycardia, Systolic murmur, Irregularly irregular Peripheral Pulses: 2+ carotid (R), 2+ carotid (L), 2+ femoral (R), 2+ femoral (L), 2+ dorsalis pedis (R), 2+ dorsalis pedis (L), 2+ Radial (R), 2+ Radial (L) Abdominal Exam: Normal bowel sounds, Soft Neuro/Mental St: Alert, Oriented Appearance: Appropriate appearance Eye contact/ Speech: Cooperative Labs/Xrays Labs Test 07/04/24 06:13 07/03/24 23:47 07/03/24 19:39 07/03/24 14:09 Range/Units White Blood Count 4.3 L 4.4-10.8 10^3/uL Red Blood Count 4.45 4.0-5.20 10^6/uL Hemoglobin 14.3 12.2-16.2 g/dL Hematocrit 42.3 # 36.0-46.0 % Mean Corpuscular Volume 94.9 80.0-100.0 fL Mean Corpuscular Hemoglobin 32.0 28.0-32.0 pg Mean Corpuscular Hemoglobin Concent 33.8 32.0-36.0 g/dL Red Cell Distribution Width 14.8 H 11.8-14.3 % Platelet Count 184 140-450 10^3/uL Mean Platelet Volume 7.8 6.9-10.8 fL Neutrophils (%) (Auto) 50.4 37.0-80.0 % Lymphocytes (%) (Auto) 30.8 10.0-50.0 % Monocytes (%) (Auto) 17.2 H 0.0-12.0 % Eosinophils (%) (Auto) 0.7 0.0-7.0 % Basophils (%) (Auto) 0.9 0.0-2.0 % Neutrophils # (Auto) 2.2 1.6-8.6 10 ^3/uL Lymphocytes # (Auto) 1.3 0.4-5.4 10 ^3/uL Monocytes # (Auto) 0.7 0-1.3 10 ^3/uL Eosinophils # (Auto) 0 0-0.8 10 ^3/uL Basophils # (Auto) 0 0-0.2 10 ^3/uL Nucleated Red Blood Cells 0.2 % Prothrombin Time 11.2 9.3-11.8 sec Prothrombin Time INR 1.06 0.9-1.15 Activated Partial Thromboplast Time 28.5 24.5-34.5 SEC Sodium Level 137 136-145 mmol/L Potassium Level 4.1 3.5-5.1 mmol/L Chloride Level 103 98-107 mmol/L Carbon Dioxide Level 25 20-31 mmol/L Anion Gap 9 5-15 Blood Urea Nitrogen 7 L 9-23 mg/dL Creatinine 0.53 L 0.550-1.02 mg/dL Glomerular Filtration Rate Calc 89 >90 mL/min BUN/Creatinine Ratio 13.2 10.0-20.0 Serum Glucose 82 74-106 mg/dL Calcium Level 9.2 8.7-10.4 mg/dL Lactic Acid Level 1.5 0.4-2.0 mmol/L D-Dimer, Quantitative 1.10 H 0.0-0.49 mg/L FEU Troponin I High Sensitivity < 3 L </=34 ng/L Thyroid Stimulating Hormone (TSH) 1.27 0.55-4.78 uIU/mL B-Type Natriuretic Peptide 185.55 0-100 pg/mL Assessment/Plan Plan Patient is a 89-year-old female who presented to the hospital with few days of shortness of breaths and cough. She is poor historian. She does have baseline poor functional capacity. She has been help at home by home care physical therapist. Since arrival, she was found to have pulmonary emboli and Cardiology was called for cardiac aspects of care. She is known to our practice from outside and before. Last visit in the office was August 2023 and she has missed several follow-ups. Does have Biotronik pacemaker. Does have baseline history of atrial fibri llation for which is on 15 mg Xarelto daily. Her compliance to medications is questionable. Lying flat in bed. Mucosa is dry. No JVD. No carotid bruit. Lungs are clear to auscultation. Cardiac: Irregular and fast. No thrill. Abdomen is soft. There is no gross mass. Extremities do not reveal edema pale dorsalis pedis is 1+ bilateral. Past medical history includes atrial fibrillation, diastolic heart failure, GERD, hypertension, hyperlipidemia, hypothyroidism, status post appendectomy/cholecystectomy/thyroidectomy/tonsillectomy. She does have Biotronik pacemaker implanted from before. Echocardiogram of May 2022 at recorded ejection fraction of 72%, mild left atrial enlargement, trace MR/TR and right ventricular systolic pressure of 35 mm Hg. Left heart catheterization of March 2021 had reported nonobstructive coronary artery disease. Creatinine: 0.54 - 0.53 Potassium: 3.6 - 4.1 TSH: 1.27 BNP: 185.55 Troponin (high sensitive): <3 - <3 - <3 D-dimer: 1.10 Chest x-ray revealed: IMPRESSION: 1. No acute intrathoracic process. 2. Stable left chest pacemaker and contour irregularity of the aortic arch. CT angio of the lungs revealed: IMPRESSION: Positive for pulmonary embolism with filling defect noted in right main pulmonary artery. EKG revealed atrial fibrillation with RVR Tele reveals atrial fibrillation with RVR Echocardiogram reported: Left ventricle: Left ventricle is normal sized with normal systolic function. LVEF was around 65%. There was no wall motion abnormality. Right ventricle: Right ventricle was mildly dilated with preserved systolic function. Left atrium was normal size. Right atrium was mildly dilated. Pacing wire was seen in right-sided chambers. Aortic valve: Aortic valve was trileaflet. There was no aortic insufficiency/stenosis. There was trace mitral regurgitation. There was [id number] tricuspid regurgitation. Pulmonary valve was not well visualized. Right ventricular systolic pressure was assessed at pressure 53 mm Hg. IVC was normal size with normal respiratory variation. There was no pericardial effusion. Patient is a 89-year-old female who has baseline poor functional capacity and presented with shortness of breath. Her compliance to medications is questionable. Is found to have pulmonary emboli. She is to be taking Xarelto at 15 mg daily for history of atrial fibrillation but her compliance is questionable. 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 Does have Biotronik it was last interrogated in August 2023 Shortness of breath Pulmonary emboli Atrial fibrillation Poor functional capacity Hypertension Hyperlipidemia Status post pacemaker implantation secondary to sick sinus syndrome Cardiac suggestion for management: Manage on telemetry Fluid resuscitation Full anticoagulation Follow-up electrolytes and kidney function test and correct abnormalities Request for interrogation of Biotronik PM Request for Pulmonary consult Further evaluation and management depends on the above and clinical course Thank you for consultation A total of 75 minutes was spent reviewing the patient record, examining the patient, making a diagnostic and therapeutic plan, discussing this plan with medical personnel, following up on diagnostic studies and following the patient for clinical stability excluding any and all procedures. At least 50% of this time was spent in direct, [id number] contact. Thank you for allowing me to participate in this patient's care. Further recommendations will depend on patient's clinical course. Please do not hesitate to contact me if you have any questions or concerns. This medical document was created using electronic medical record system with [employer] computerized dictation system. Although this document has been carefully reviewed, there may still be some phonetic and typographical errors. These areas are purely typographical due to the imperfection of the software programs, and do not reflect any compromise in the patient's medical care. Plan discussed with: Patient, Other (nurse) MARCO ANTONIO LAMB MD Jul 04, 2024 10:17
--- NOTE | 2024-07-04 12:45 | ECG ---
[facility] Test Date: 2024-07-03 Test Time: 13:31:06 Pat Name: ERICA RICH Department: ER Room: 0290T Gender: F Physical Medicine Teacher: DAMIAN : 1935 Requested By: SANDRINE EDGAR Order Number: [id number] Reading MD: Measurements Intervals [place] Rate: 153 P: 0 VA: 0 QRS: 188 QRSD: 77 T: 12 QT: 322 QTc: 514 Interpretive Statements Atrial fibrillation with rapid V-rate Ventricular premature complex Right axis deviation Low voltage, precordial leads Repolarization abnormality, prob rate related Please click the below link to view image of tracing.
--- NOTE | 2024-07-04 16:48 | DVHNC2 ---
Procedure - Biotronik interrogation: Battery status: Du Expected ARMANI: Five years/one month Remaining battery capacity: 45% DDIR: 65/--- Sensing amplitude: A3.1/V10.3 mV Threshold: V 0.6 volts Lead impedance: A 448/V 507 Ohms Pacing in A/V: 30/38% Atrial arrhythmia burden: 17% Recurrent AFib with RVR MARCO ANTONIO LAMB MD Jul 04, 2024 16:48
[2024-07-04] MEDS: METOPROLOL TARTRATE 25 MG TAB PO ONE (17:30)
--- NOTE | 2024-07-04 17:31 | DVHPN2 ---
Subjective in bed feeling some SOB Changes from previous H/P or p: No Changes Objective Vitals Vital Signs Date Time Temp Pulse Resp B/P (MAP) Pulse Ox O2 Delivery O2 Flow Rate FiO2 07/04/24 15:30 97.8 132 14 125/73 (90) 93 97.8 07/04/24 07:38 Room Air 07/04/24 07:38 0 21 Intake/Output Intake and Output 07/04/24 07:00 Intake Total 100 ml Balance 100 ml Intake Oral 100 ml # Voids 1 General Appearance: Alert, Oriented X3 Lungs: Clear to auscultation Cardiovascular: Regular rate Abdomen: Normal bowel sounds Medications Current Medications Medications Dose Ordered Sig/Francisco J Route Start Time Stop Time Status Last Admin Dose Admin Sotalol HCl 80 mg Q12HR PO 07/03/24 22:00 07/04/24 09:44 80 MG Atorvastatin Calcium 20 mg HS PO 07/03/24 22:00 07/03/24 22:27 20 MG Levothyroxine Sodium 112 mcg QAM@0600 PO 07/04/24 06:00 07/04/24 06:04 112 MCG Albuterol 2.5 mg Q6HPRN PRN NEB 07/03/24 19:30 Aspirin 81 mg DAILY PO 07/04/24 10:00 07/04/24 09:44 81 MG Ondansetron HCl 4 mg Q4HP PRN IV 07/03/24 19:30 Acetaminophen 650 mg Q6HP PRN PO 07/03/24 19:30 07/04/24 11:03 650 MG Guaifenesin/ Dextromethorphan 10 ml Q4HP PRN PO 07/03/24 23:15 Enoxaparin Sodium 70 mg Q12HR SC 07/04/24 22:00 Sodium Chloride 1,000 ml @ 60 mls/hr [id number] IV 07/04/24 10:15 07/04/24 10:15 60 MLS/HR Metoprolol Tartrate 25 mg BID PO 07/05/24 10:00 Digoxin 0.25 mg DAILY PO 07/05/24 10:00 Laboratory Results Laboratory Tests 07/04/24 06:13 Chemistry Test 07/04/24 06:13 Calcium Level 9.2 mg/dL (8.7-10.4) Coagulation Test 07/03/24 19:39 07/04/24 06:13 D-Dimer, Quantitative 1.10 mg/L FEU (0.0-0.49) H Prothrombin Time 11.2 sec (9.3-11.8) Prothrombin Time INR 1.06 (0.9-1.15) Activated Partial Thromboplast Time 28.5 SEC (24.5-34.5) HgA1c, TSH Test 07/03/24 19:39 Thyroid Stimulating Hormone (TSH) 1.27 uIU/mL (0.55-4.78) Assessment/Plan Assessment/Plan Acute hypoxic respiratory failure Acute PE right main Hypertension CHF History of AFib Status post pacemaker Thyroid Continue lovenox for acute PE off oxygen now Per cardiology Interrogation of pacemaker healed frequent episodes of atrial fibrillation. We will load with digoxin. We will add metoprolol on top of sotalol Plan discussed with: Patient Date of Service: Jul 04, 2024 Billing Provider: BENJAMIN PAUL MD Common Visit Codes: [id number] INP/OBS CARE(HIGH) BENJAMIN PAUL MD Jul 04, 2024 17:31
[2024-07-04] MEDS: DIGOXIN (250MCG/ML) 2 ML AMPULE IV ONE ×2 (17:32→23:39)
--- NOTE | 2024-07-04 19:42 | DVHINCON2 ---
Date of service: Jul 04, [address] Ta Reason for Consultation Pulmonary embolism History of Present Illness An 89-year-old woman with PMHx of dyslipidemia, hypertension, thyroid disease, GERD, CHF, and AFib (on Xarelto) who presented to ED on 07/03/24 for evaluation of shortness of breath. Patient reported a 3-day history of shortness of breath with associated cough. Denied fever or chills, N/V or abdominal pain. Pt has baseline poor functional capacity. Her compliance to medications is questionable. Patient was admitted for further care and pulmonary consultation is requested for evaluation and management due to pulmonary embolism. Review of Systems: 14-point review of systems negative unless otherwise noted above. Past Medical History: Dyslipidemia, hypertension, thyroid, GERD, CHF, AFib Past Surgical History: Hysterectomy, Biotronik pacemaker, thyroidectomy, tonsillectomy, cholecystectomy Medications: Reviewed. Allergies: Penicillin, sulfa drugs. Family History: Congestive heart failure Myocardial infarction Social History: Nonsmoker. Occasional alcohol use. No illicit drug use. Family History: FH: congestive heart failure G8 MOTHER FH: myocardial infarction G8 FATHER Family history: Cardiovascular disease G8 MOTHER G8 FATHER Allergies: Coded Allergies: Penicillins (Verified Allergy, Unknown, 03/08/21) Sulfa Drugs (Verified Allergy, Unknown, 03/08/21) Home Meds Reported Medications Cholecalciferol (VITAMIN D3) 2,000 Unit Tab, 25 MG PO DAILY, TAB 07/25/21 Gabapentin (Gabapentin) 300 Mg Cap, 300 MG PO BID for 30 Days, MG 03/13/21 Potassium Chloride (POTASSIUM CHLORIDE CR) 10 Meq Tb, 20 MEQ PO DAILY, TAB 03/13/21 Furosemide (Furosemide) 40 Mg Tab, 40 MG PO DAILY for 30 Days 03/13/21 Rivaroxaban (Xarelto Tablet) 15 Mg Tb, 15 MG PO DAILY, TAB 03/13/21 Pravastatin Sodium (PRAVACHOL TABLET) 20 Mg Tb, 1 TAB PO HS, #30 TAB 5 Refills 05/29/20 Sotalol Hcl (Sotalol Hcl (Af)) 80 Mg Tab, 1 TAB PO BID, TAB 05/29/20 Ascorbic Acid (VITAMIN C TABLET) 500 Mg Tb, 1 TAB PO DAILY, #30 TAB 3 Refills 05/29/20 Levothyroxine Sodium (Levothyroxine Sodium) 112 Mcg Tab, 100 MG PO DAILY, #30 TAB 5 Refills 05/29/20 Pantoprazole Sodium Sesquihydr (Protonix) 40 Mg Tab, 40 MG PO DAILY, #30 TAB 05/29/20 Current Medications Current Medications Medications (Trade) Dose Ordered Sig/Francisco J Route PRN Reason Start Time Stop Time Status Last Admin Sotalol HCl (Betapace) 80 mg Q12HR PO 07/03/24 22:00 07/04/24 09:44 Atorvastatin Calcium (Lipitor) 20 mg HS PO 07/03/24 22:00 07/03/24 22:27 Levothyroxine Sodium (Synthroid Tablet) 112 mcg QAM@0600 PO 07/04/24 06:00 07/04/24 06:04 Rivaroxaban (Xarelto Tablet) 15 mg DAILY PO 07/04/24 10:00 07/04/24 08:03 DC Aspirin 81 mg DAILY PO 07/04/24 10:00 07/04/24 09:44 Guaifenesin/ Dextromethorphan (Robitussin-Dm Liquid) 10 ml Q4HP PRN PO FOR COUGH 07/03/24 23:15 Heparin Sodium/ Dextrose 250 ml @ 12.06 mls/ hr [id number] IV 07/04/24 08:00 07/04/24 08:33 DC Enoxaparin Sodium (Lovenox) 70 mg Q12HR SC 07/04/24 22:00 Sodium Chloride 1,000 ml @ 60 mls/hr [id number] IV 07/04/24 10:15 07/04/24 10:15 Metoprolol Tartrate (Lopressor Tablet) 25 mg BID PO 07/05/24 10:00 Digoxin (Lanoxin Tablet) 0.25 mg DAILY PO 07/05/24 10:00 Vital Signs Vital Signs Date Time Temp Pulse Resp B/P (MAP) Pulse Ox O2 Delivery O2 Flow Rate FiO2 07/04/24 17:32 115 07/04/24 17:30 137/95 07/04/24 15:30 97.8 14 93 97.8 07/04/24 08:00 Room Air* 0 21 Physical Exam Gen.: Patient lying in bed in no apparent distress. Breathing on room air. Head: Normocephalic, atraumatic. Eyes: EOMI/PERRLA. Ears: Normal hearing. Normal anatomy. Neck/trachea: Trachea midline, supple. Nose: Normal external anatomy. Mouth: Moist mucous membranes. Chest: Decreased air entry bilaterally. No wheezing or rhonchi. Cardiovascular: Positive S1, positive S2. Regular rate and rhythm. Abdomen: Positive bowel sounds in all 4 quadrants. Soft, non-tender, non- distended. : Deferred. Rectal: Deferred. Skin: Warm, dry. Intact. Extremities: 2+ radial pulses bilaterally. No lower extremity edema. Neuro: Awake, alert, oriented x3. No gross motor or sensory deficits. Cranial nerves II through XII intact. Gait not assessed. Labs/Diagnostic Data Labs Test 07/04/24 06:13 07/03/24 23:47 07/03/24 19:39 07/03/24 14:09 Range/Units White Blood Count 4.3 L 4.4-10.8 10^3/uL Red Blood Count 4.45 4.0-5.20 10^6/uL Hemoglobin 14.3 12.2-16.2 g/dL Hematocrit 42.3 # 36.0-46.0 % Mean Corpuscular Volume 94.9 80.0-100.0 fL Mean Corpuscular Hemoglobin 32.0 28.0-32.0 pg Mean Corpuscular Hemoglobin Concent 33.8 32.0-36.0 g/dL Red Cell Distribution Width 14.8 H 11.8-14.3 % Platelet Count 184 140-450 10^3/uL Mean Platelet Volume 7.8 6.9-10.8 fL Neutrophils (%) (Auto) 50.4 37.0-80.0 % Lymphocytes (%) (Auto) 30.8 10.0-50.0 % Monocytes (%) (Auto) 17.2 H 0.0-12.0 % Eosinophils (%) (Auto) 0.7 0.0-7.0 % Basophils (%) (Auto) 0.9 0.0-2.0 % Neutrophils # (Auto) 2.2 1.6-8.6 10 ^3/uL Lymphocytes # (Auto) 1.3 0.4-5.4 10 ^3/uL Monocytes # (Auto) 0.7 0-1.3 10 ^3/uL Eosinophils # (Auto) 0 0-0.8 10 ^3/uL Basophils # (Auto) 0 0-0.2 10 ^3/uL Nucleated Red Blood Cells 0.2 % Prothrombin Time 11.2 9.3-11.8 sec Prothrombin Time INR 1.06 0.9-1.15 Activated Partial Thromboplast Time 28.5 24.5-34.5 SEC Sodium Level 137 136-145 mmol/L Potassium Level 4.1 3.5-5.1 mmol/L Chloride Level 103 98-107 mmol/L Carbon Dioxide Level 25 20-31 mmol/L Anion Gap 9 5-15 Blood Urea Nitrogen 7 L 9-23 mg/dL Creatinine 0.53 L 0.550-1.02 mg/dL Glomerular Filtration Rate Calc 89 >90 mL/min BUN/Creatinine Ratio 13.2 10.0-20.0 Serum Glucose 82 74-106 mg/dL Calcium Level 9.2 8.7-10.4 mg/dL Lactic Acid Level 1.5 0.4-2.0 mmol/L D-Dimer, Quantitative 1.10 H 0.0-0.49 mg/L FEU Troponin I High Sensitivity < 3 L </=34 ng/L Thyroid Stimulating Hormone (TSH) 1.27 0.55-4.78 uIU/mL B-Type Natriuretic Peptide 185.55 0-100 pg/mL Assessment Impression: Acute pulmonary embolism Pulmonary hypertension, right ventricular systolic pressure 53 mmHg Atrial fibrillation Status post pacemaker implantation secondary to sick sinus syndrome Plan: CT of the chest report and images reviewed. Positive pulmonary embolism with filling defect in the right main pulmonary artery. On room air On therapeutic Lovenox Echo report reviewed. Right ventricular systolic pressure 53 mmHg. Bronchodilators as needed Continue aspirin, statin, digoxin DVT prophylaxis-on therapeutic Lovenox Overall poor prognosis Prognosis: Poor given multiple comorbidities. Rest of plan per hospitalist and other consultants. Thank you Dr. Ta for allowing me to participate in this patient's care. Further recommendations will depend on patient's clinical course. Please do not hesitate to contact me if you have any questions or concerns. This medical document was created using an electronic medical record system with [employer] system. Although this document has been carefully reviewed, there may still be some phonetic and typographical errors. These areas are purely typographical due to imperfections of the software programs, and do not reflect any compromise in the patient's medical care. Plan discussed with: Patient, Other (BRIDGER Marie/Dr. Ta) ELIZABETH MARQUEZ MD Jul 04, 2024 19:42
[2024-07-04] MEDS: ENOXAPARIN SOD 100 MG/1 ML SYRINGE SC SCH (22:26)
[2024-07-05] VITALS (14 sets, daily range): BP systolic 140–155; BP diastolic 69–105; PULSE 68–121; RESP 16–20; TEMP 97.1–98.1; O2SAT 95–100
[2024-07-05] MEDS: DIGOXIN (250MCG/ML) 2 ML AMPULE IV ONE (05:14)
--- NOTE | 2024-07-05 06:02 | DVHPN2 ---
Progress Note - Dictate Date Seen: Jul 05, 2024 Medical Necessity Reason Pt with a Central, PICC or Fol: No vital signs Vital Sign Date Time Temp Pulse Resp B/P (MAP) Pulse Ox O2 Delivery O2 Flow Rate FiO2 07/05/24 05:14 121 07/05/24 05:00 98.1 19 155/85 (108) 95 98.1 07/04/24 20:00 Room Air* 0 21 Total Intake and Output 07/04/24 07/04/24 07/05/24 15:00 23:00 07:00 Intake Total 300 ml Balance 300 ml medications Current Medications Medications Dose Ordered Sig/Francisco J Route Start Time Stop Time Status Last Admin Dose Admin Sotalol HCl 80 mg Q12HR PO 07/03/24 22:00 07/04/24 22:25 80 MG Atorvastatin Calcium 20 mg HS PO 07/03/24 22:00 07/04/24 22:25 20 MG Levothyroxine Sodium 112 mcg QAM@0600 PO 07/04/24 06:00 07/05/24 05:14 112 MCG Albuterol 2.5 mg Q6HPRN PRN NEB 07/03/24 19:30 Aspirin 81 mg DAILY PO 07/04/24 10:00 07/04/24 09:44 81 MG Ondansetron HCl 4 mg Q4HP PRN IV 07/03/24 19:30 Acetaminophen 650 mg Q6HP PRN PO 07/03/24 19:30 07/04/24 11:03 650 MG Guaifenesin/ Dextromethorphan 10 ml Q4HP PRN PO 07/03/24 23:15 Enoxaparin Sodium 70 mg Q12HR SC 07/04/24 22:00 07/04/24 22:26 70 MG Sodium Chloride 1,000 ml @ 60 mls/hr [id number] IV 07/04/24 10:15 07/04/24 10:15 60 MLS/HR Metoprolol Tartrate 25 mg BID PO 07/05/24 10:00 Digoxin 0.25 mg DAILY PO 07/05/24 10:00 laboratory and microbiology Laboratory Tests 07/04/24 06:13 Test 07/04/24 06:13 Range/Units Serum Glucose 82 74-106 mg/dL Assessment/Plan Patient is a 89-year-old female who presented to the hospital with few days of shortness of breaths and cough. She is poor historian. She does have baseline poor functional capacity. She has been help at home by child caregiver private home. Since arrival, she was found to have pulmonary emboli and Cardiology was called for cardiac aspects of care. She is known to our practice from outside and before. Last visit in the office was August 2023 and she has missed several follow-ups. Does have Biotronik pacemaker. Does have baseline history of atrial fibrillation for which is on 15 mg Xarelto daily. Her compliance to medications is questionable. Lying flat in bed. Mucosa is dry. No JVD. No carotid bruit. Lungs are clear to auscultation. Cardiac: Irregular and fast. No thrill. Abdomen is soft. There is no gross mass. Extremities do not reveal edema pale dorsalis pedis is 1+ bilateral. Past medical history includes atrial fibrillation, diastolic heart failure, GERD, hypertension, hyperlipidemia, hypothyroidism, status post appendectomy/cholecystectomy/thyroidectomy/tonsillectomy. She does have Biotronik pacemaker implanted from before. Echocardiogram of May 2022 at recorded ejection fraction of 72%, mild left atrial enlargement, trace MR/TR and right ventricular systolic pressure of 35 mm Hg. Left heart catheterization of March 2021 had reported nonobstructive coronary artery disease. Creatinine: 0.54 - 0.53 Potassium: 3.6 - 4.1 TSH: 1.27 BNP: 185.55 Troponin (high sensitive): <3 - <3 - <3 D-dimer: 1.10 Chest x-ray revealed: IMPRESSION: 1. No acute intrathoracic process. 2. Stable left chest pacemaker and contour irregularity of the aortic arch. CT angio of the lungs revealed: IMPRESSION: Positive for pulmonary embolism with filling defect noted in right main pulmonary artery. EKG revealed atrial fibrillation with RVR Tele reveals atrial fibrillation with RVR Echocardiogram reported: Left ventricle: Left ventricle is normal sized with normal systolic function. LVEF was around 65%. There was no wall motion abnormality. Right ventricle: Right ventricle was mildly dilated with preserved systolic function. Left atrium was normal size. Right atrium was mildly dilated. Pacing wire was seen in right-sided chambers. Aortic valve: Aortic valve was trileaflet. There was no aortic insufficiency/stenosis. There was trace mitral regurgitation. There was [id number] tricuspid regurgitation. Pulmonary valve was not well visualized. Right ventricular systolic pressure was assessed at pressure 53 mm Hg. IVC was normal size with normal respiratory variation. There was no pericardial effusion. Biotronik interrogation: Battery status: Okay; Expected ARMANI: Five years/one month; Remaining battery capacity: 45%; DDIR: 65/---; Sensing amplitude: A3.1/V10.3 mV; Threshold: V 0.6 volts; Lead impedance: A 448/V 507 Ohms; Pacing in A/V: 30/38%; Atrial arrhythmia burden: 17%; Recurrent AFib with RVR Patient is a 89-year-old female who has baseline poor functional capacity and presented with shortness of breath. Her compliance to medications is questionable. Is found to have pulmonary emboli. She is to be taking Xarelto at 15 mg daily for history of atrial fibrillation but her compliance is questionable. Does not follow with pile header regularly. Does have Biotronik it was last interrogated in August 2023. Repeat interrogation revealed repeated episodes of a-fib with RVR. Shortness of breath Pulmonary emboli Atrial fibrillation A-fib with RVR Poor functional capacity Hypertension Hyperlipidemia Status post pacemaker implantation secondary to sick sinus syndrome Cardiac suggestion for management: Manage on telemetry Fluid resuscitation Full anticoagulation (on therapeutic Lovenox for now) Follow-up electrolytes and kidney function test and correct abnormalities Loaded with Digoxin Pulmonary follow up Further evaluation and management depends on the above and clinical course A total of 55 minutes was spent reviewing the patient record, examining the patient, making a diagnostic and therapeutic plan, discussing this plan with medical personnel, following up on diagnostic studies and following the patient for clinical stability excluding any and all procedures. At least 50% of this time was spent in direct, [id number] contact. Thank you for allowing me to participate in this patient's care. Further recommendations will depend on patient's clinical course. Please do not hesitate to contact me if you have any questions or concerns. This medical document was created using electronic medical record system with [employer] dictation system. Although this document has been carefully reviewed, there may still be some phonetic and typographical errors. These areas are purely typographical due to the imperfection of the software programs, and do not reflect any compromise in the patient's medical care. Plan discussed with: Patient, Other (nurse) MARCO ANTONIO LAMB MD Jul 05, 2024 06:02
[2024-07-05 10:09] LABS: Hematocrit 43.9 % (36.0-46.0); Hemoglobin 14.2 g/dL (12.2-16.2); Mean Corpuscular Hemoglobin 30.7 pg (28.0-32.0); Mean Corpuscular Hgb Conc. 32.2 g/dL (32.0-36.0); Mean Corpuscular Volume 95.1 fL (80.0-100.0); Platelet Count (auto) 178 10^3/uL (140-450); Red Blood Cells 4.62 10^6/uL (4.0-5.20); Red Cell Distribution Width 14.7 % (11.8-14.3); White Blood Cell 3.2 10^3/uL (4.4-10.8)
[2024-07-05 10:17] LABS: Albumin 3.3 g/dL (3.2-4.8); Anion Gap 7 (5-15); Aspartate Aminotransferase 37 U/L (13-40); Basophils % (manual) 0 (0.0-2.0); Blast Cells 0; Carbon Dioxide 24 mmol/L (20-31); Chloride 106 mmol/L (98-107); Eosinophils % (manual) 0 (0-7); Glucose 82 mg/dL (74-106); Metamyelocytes % 0; Promyelocytes % 0; Reactive Lymphocytes 0; Sodium 137 mmol/L (136-145)
[2024-07-05 10:18] LABS: Bilirubin, Total 0.5 mg/dL (0.2-1.0)
[2024-07-05] MEDS: METOPROLOL TARTRATE 25 MG TAB PO SCH (10:29)
[2024-07-05] MEDS: DIGOXIN 0.125 MG TAB PO SCH (10:29)
[2024-07-05 10:56] LABS: Alanine Aminotransferase 20 U/L (7-40); Alkaline Phosphatase 44 U/L (46-116); BUN/Creatinine Ratio 10.4 (10.0-20.0); Blood Urea Nitrogen < 5 mg/dL (9-23); Calcium 8.6 mg/dL (8.7-10.4); Potassium 4.3 mmol/L (3.5-5.1); Total Protein 5.1 g/dL (5.7-8.2)
[2024-07-05 11:48] LABS: Band Neutrophils % (manual) 6; Lymphocytes % (manual) 50 (10.0-50.0); Monocytes % (manual) 22 (0-12); Myelocytes % 1; Platelet Estimate Adequate
--- NOTE | 2024-07-05 18:02 | DVHPN2 ---
Subjective Seen and examined at bedside, cont oxygen and cont Lovenox for PE. Changes from previous H/P or p: No Changes Objective Vitals Vital Signs Date Time Temp Pulse Resp B/P (MAP) Pulse Ox O2 Delivery O2 Flow Rate FiO2 07/05/24 17:00 97.3 69 18 142/91 (108) 99 97.3 07/05/24 08:56 Nasal Cannula 3.0 07/05/24 08:56 32 Intake/Output Intake and Output 07/05/24 07:00 Intake Total 300 ml Balance 300 ml Intake Oral 300 ml # Voids 7 General Appearance: Alert, Oriented X3 Lungs: Clear to auscultation Cardiovascular: Regular rate Abdomen: Normal bowel sounds Medications Current Medications Medications Dose Ordered Sig/Francisco J Route Start Time Stop Time Status Last Admin Dose Admin Sotalol HCl 80 mg Q12HR PO 07/03/24 22:00 07/05/24 10:30 80 MG Atorvastatin Calcium 20 mg HS PO 07/03/24 22:00 07/04/24 22:25 20 MG Levothyroxine Sodium 112 mcg QAM@0600 PO 07/04/24 06:00 07/05/24 05:14 112 MCG Albuterol 2.5 mg Q6HPRN PRN NEB 07/03/24 19:30 Aspirin 81 mg DAILY PO 07/04/24 10:00 07/05/24 10:29 81 MG Ondansetron HCl 4 mg Q4HP PRN IV 07/03/24 19:30 Acetaminophen 650 mg Q6HP PRN PO 07/03/24 19:30 07/04/24 11:03 650 MG Guaifenesin/ Dextromethorphan 10 ml Q4HP PRN PO 07/03/24 23:15 Enoxaparin Sodium 70 mg Q12HR SC 07/04/24 22:00 07/05/24 10:28 70 MG Sodium Chloride 1,000 ml @ 60 mls/hr [id number] IV 07/04/24 10:15 07/04/24 10:15 60 MLS/HR Metoprolol Tartrate 25 mg BID PO 07/05/24 10:00 07/05/24 10:29 25 MG Digoxin 0.25 mg DAILY PO 07/05/24 10:00 07/05/24 10:29 0.25 MG Laboratory Results Laboratory Tests 07/05/24 09:21 Chemistry Test 07/05/24 09:21 Albumin 3.3 g/dL (3.2-4.8) Calcium Level 8.6 mg/dL (8.7-10.4) L Total Protein 5.1 g/dL (5.7-8.2) L LFT Test 07/05/24 09:21 Alanine Aminotransferase (ALT) 20 U/L (7-40) Alkaline Phosphatase 44 U/L (46-116) L Aspartate Amino Transferase (AST) 37 U/L (13-40) Total Bilirubin 0.5 mg/dL (0.2-1.0) Assessment/Plan Assessment/Plan # Pulmonary Embolism- Lovenox Subq # Acute Resp Failure- titrate oxygen # Bedbound # Pulm HTN- Monitor for fluid overload Plan discussed with: Patient My Orders Orders - RONAK ROMERO MD Procedure Category Date Status Time Complete Blood Count LAB 07/06/24 Verified 04:00 Basic Metabolic Panel LAB 07/06/24 Verified 04:00 Magnesium LAB 07/06/24 Verified 04:00 * Music Store Manager CONS 07/05/24 Transmitted Consult Date of Service: Jul 05, 2024 Billing Provider: RONAK ROMERO MD Common Visit Codes: [id number] INP/OBS CARE(HIGH) RONAK ROMERO MD Jul 05, 2024 18:02
[2024-07-05] MEDS: ALBUTEROL SULF 2.5 MG/0.5ML(0.5%) NEB SOLN NEB PRN (18:39)
--- NOTE | 2024-07-05 22:41 | DVHPN2 ---
Progress Note - Dictate Date Seen: Jul 05, 2024 Medical Necessity Reason Pt with a Central, PICC or Fol: No Subjective Patient seen and examined at bedside. Remains on supplemental oxygen Overnight events reviewed. vital signs Vital Sign Date Time Temp Pulse Resp B/P (MAP) Pulse Ox O2 Delivery O2 Flow Rate FiO2 07/05/24 21:40 84 146/105 07/05/24 21:00 97.8 18 98 97.8 07/05/24 20:00 Room Air* 0 21 Total Intake and Output 07/04/24 07/04/24 07/05/24 15:00 23:00 07:00 Intake Total 300 ml Balance 300 ml medications Current Medications Medications Dose Ordered Sig/Francisco J Route Start Time Stop Time Status Last Admin Dose Admin Sotalol HCl 80 mg Q12HR PO 07/03/24 22:00 07/05/24 21:40 80 MG Atorvastatin Calcium 20 mg HS PO 07/03/24 22:00 07/05/24 21:39 20 MG Levothyroxine Sodium 112 mcg QAM@0600 PO 07/04/24 06:00 07/05/24 05:14 112 MCG Albuterol 2.5 mg Q6HPRN PRN NEB 07/03/24 19:30 07/05/24 18:39 2.5 MG Aspirin 81 mg DAILY PO 07/04/24 10:00 07/05/24 10:29 81 MG Ondansetron HCl 4 mg Q4HP PRN IV 07/03/24 19:30 Acetaminophen 650 mg Q6HP PRN PO 07/03/24 19:30 07/04/24 11:03 650 MG Guaifenesin/ Dextromethorphan 10 ml Q4HP PRN PO 07/03/24 23:15 Enoxaparin Sodium 70 mg Q12HR SC 07/04/24 22:00 07/05/24 21:41 70 MG Metoprolol Tartrate 25 mg BID PO 07/05/24 10:00 07/05/24 21:40 25 MG Digoxin 0.25 mg DAILY PO 07/05/24 10:00 07/05/24 10:29 0.25 MG objective Gen.: Patient lying in bed in no apparent distress. On supplemental oxygen. Head: Normocephalic, atraumatic. Eyes: EOMI/PERRLA. Ears: Normal hearing. Normal anatomy. Neck/trachea: Trachea midline, supple. Nose: Normal external anatomy. Mouth: Moist mucous membranes. Chest: Decreased air entry bilaterally. No wheezing or rhonchi. Cardiovascular: Positive S1, positive S2. Regular rate and rhythm. Abdomen: Positive bowel sounds in all 4 quadrants. Soft, non-tender, non- distended. : Deferred. Rectal: Deferred. Skin: Warm, dry. Intact. Extremities: 2+ radial pulses bilaterally. No lower extremity edema. Neuro: Awake, alert, oriented x3. No gross motor or sensory deficits. Cranial nerves II through XII intact. Gait not assessed. laboratory and microbiology Laboratory Tests 07/05/24 09:21 Test 07/05/24 09:21 Range/Units Serum Glucose 82 74-106 mg/dL Assessment/Plan Impression: Acute pulmonary embolism Pulmonary hypertension, right ventricular systolic pressure 53 mmHg Atrial fibrillation Status post pacemaker implantation secondary to sick sinus syndrome Events: Remains on supplemental oxygen, 3 LPM NC Taper O2 as tolerated On therapeutic Lovenox Recommend transition to PO anticoagulation + outpatient followup Echo report reviewed. RVSP is 53 mmHg. Cardiology recommendations appreciated. Continue bronchodilators PRN Continue aspirin/statin/digoxin Incentive spirometry Labs and imaging reviewed. Rest of plan as noted below. Plan: CT of the chest report and images reviewed. Positive pulmonary embolism with filling defect in the right main pulmonary artery. Supplemental oxygen Titrate to keep O2 sats above 92%. On therapeutic Lovenox Echo report reviewed. Right ventricular systolic pressure 53 mmHg. Bronchodilators as needed Continue aspirin, statin, digoxin DVT prophylaxis-on therapeutic Lovenox Overall poor prognosis Prognosis: Poor given multiple comorbidities. Rest of plan per hospitalist and other consultants. Thank you Dr. Ta for allowing me to participate in this patient's care. Further recommendations will depend on patient's clinical course. Please do not hesitate to contact me if you have any questions or concerns. This medical document was created using an electronic medical record system with [employer] system. Although this document has been carefully reviewed, there may still be some phonetic and typographical errors. These areas are purely typographical due to imperfections of the software programs, and do not reflect any compromise in the patient's medical care. Plan discussed with: Patient, Other (BRIDGER Loaiza) ELIZABETH MARQUEZ MD Jul 05, 2024 22:41
[2024-07-06] VITALS (8 sets, daily range): BP systolic 133–147; BP diastolic 70–114; PULSE 64–105; RESP 16–28; TEMP 97.9–98.3; O2SAT 92–100
[2024-07-06 00:52] LABS: COVID19 ANTIGEN SOFIA FIA NEGATIVE (NEGATIVE); Rapid Influenza A Negative (Negative); Rapid Influenza B Negative (Negative)
--- NOTE | 2024-07-06 06:39 | DVHPN2 ---
Progress Note - Dictate Date Seen: Jul 06, 2024 Medical Necessity Reason Pt with a Central, PICC or Fol: No vital signs Vital Sign Date Time Temp Pulse Resp B/P (MAP) Pulse Ox O2 Delivery O2 Flow Rate FiO2 07/06/24 01:00 97.9 100 20 147/83 (104) 97 97.9 07/05/24 23:41 Nasal Cannula* 3 32 Total Intake and Output 07/05/24 07/05/24 07/06/24 15:00 23:00 07:00 Intake Total 700 ml 200 ml Balance 700 ml 200 ml medications Current Medications Medications Dose Ordered Sig/Francisco J Route Start Time Stop Time Status Last Admin Dose Admin Sotalol HCl 80 mg Q12HR PO 07/03/24 22:00 07/05/24 21:40 80 MG Atorvastatin Calcium 20 mg HS PO 07/03/24 22:00 07/05/24 21:39 20 MG Levothyroxine Sodium 112 mcg QAM@0600 PO 07/04/24 06:00 07/06/24 05:41 112 MCG Albuterol 2.5 mg Q6HPRN PRN NEB 07/03/24 19:30 07/05/24 23:41 2.5 MG Aspirin 81 mg DAILY PO 07/04/24 10:00 07/05/24 10:29 81 MG Ondansetron HCl 4 mg Q4HP PRN IV 07/03/24 19:30 Acetaminophen 650 mg Q6HP PRN PO 07/03/24 19:30 07/04/24 11:03 650 MG Guaifenesin/ Dextromethorphan 10 ml Q4HP PRN PO 07/03/24 23:15 Enoxaparin Sodium 70 mg Q12HR SC 07/04/24 22:00 07/05/24 21:41 70 MG Metoprolol Tartrate 25 mg BID PO 07/05/24 10:00 07/05/24 21:40 25 MG Digoxin 0.25 mg DAILY PO 07/05/24 10:00 07/05/24 10:29 0.25 MG laboratory and microbiology Test 07/06/24 06:10 Range/Units Serum Glucose Pending Assessment/Plan Patient is a 89-year-old female who presented to the hospital with few days of shortness of breaths and cough. She is poor historian. She does have baseline poor functional capacity. She has been help at home by sales technician home theater. Since arrival, she was found to have pulmonary emboli and Cardiology was called for cardiac aspects of care. She is known to our practice from outside and before. Last visit in the office was August 2023 and she has missed several follow-ups. Does have Biotronik pacemaker. Does have baseline history of atrial fibrillation for which is on 15 mg Xarelto daily. Her compliance to medications is questionable. Lying flat in bed. Mucosa is dry. No JVD. No carotid bruit. Lungs are clear to auscultation. Cardiac: Irregular and fast. No thrill. Abdomen is soft. There is no gross mass. Extremities do not reveal edema pale dorsalis pedis is 1+ bilateral. Past medical history includes atrial fibrillation, diastolic heart failure, GERD, hypertension, hyperlipidemia, hypothyroidism, status post appendectom y/cholecystectomy/thyroidectomy/tonsillectomy. She does have Biotronik pacemaker implanted from before. Echocardiogram of May 2022 at recorded ejection fraction of 72%, mild left atrial enlargement, trace MR/TR and right ventricular systolic pressure of 35 mm Hg. Left heart catheterization of March 2021 had reported nonobstructive coronary artery disease. Creatinine: 0.54 - 0.53 - 0.48 - 0.43 Potassium: 3.6 - 4.1 - 4.3 - 3.6 TSH: 1.27 BNP: 185.55 Troponin (high sensitive): <3 - <3 - <3 D-dimer: 1.10 Chest x-ray revealed: IMPRESSION: 1. No acute intrathoracic process. 2. Stable left chest pacemaker and contour irregularity of the aortic arch. CT angio of the lungs revealed: IMPRESSION: Positive for pulmonary embolism with filling defect noted in right main pulmonary artery. EKG revealed atrial fibrillation with RVR Tele reveals atrial fibrillation with RVR Echocardiogram reported: Left ventricle: Left ventricle is normal sized with normal systolic function. LVEF was around 65%. There was no wall motion abnormality. Right ventricle: Right ventricle was mildly dilated with preserved systolic function. Left atrium was normal size. Right atrium was mildly dilated. Pacing wire was seen in right-sided chambers. Aortic valve: Aortic valve was trileaflet. There was no aortic insufficiency/stenosis. There was trace mitral regurgitation. There was [id number] tricuspid regurgitation. Pulmonary valve was not well visualized. Right ventricular systolic pressure was assessed at pressure 53 mm Hg. IVC was normal size with normal respiratory variation. There was no pericardial effusion. Biotronik interrogation: Battery status: Okay; Expected ARMANI: Five years/one month; Remaining battery capacity: 45%; DDIR: 65/---; Sensing amplitude: A3.1/V10.3 mV; Threshold: V 0.6 volts; Lead impedance: A 448/V 507 Ohms; Pacing in A/V: 30/38%; Atrial arrhythmia burden: 17%; Recurrent AFib with RVR Patient is a 89-year-old female who has baseline poor functional capacity and presented with shortness of breath. Her compliance to medications is questionable. Is found to have pulmonary emboli. She is to be taking Xarelto at 15 mg daily for history of atrial fibrillation but her compliance is questionable. Does not follow with solar system installer regularly. Does have Biotronik it was last interrogated in August 2023. Repeat interrogation revealed repeated episodes of a-fib with RVR. Shortness of breath Pulmonary emboli Atrial fibrillation A-fib with RVR Poor functional capacity Hypertension Hyperlipidemia Status post pacemaker implantation secondary to sick sinus syndrome Cardiac suggestion for management: Manage on telemetry Fluid resuscitation Full anticoagulation (on therapeutic Lovenox, consider transition to oral anticoagulation) Follow-up electrolytes and kidney function test and correct abnormalities Loaded with Digoxin, started on maintenance Pulmonary follow up Further evaluation and management depends on the above and clinical course A total of 55 minutes was spent reviewing the patient record, examining the patient, making a diagnostic and therapeutic plan, discussing this plan with medical personnel, following up on diagnostic studies and following the patient for clinical stability excluding any and all procedures. At least 50% of this time was spent in direct, [id number] contact. Thank you for allowing me to participate in this patient's care. Further recommendations will depend on patient's clinical course. Please do not hesitate to contact me if you have any questions or concerns. This medical document was created using electronic medical record system with [employer] dictation system. Although this document has been carefully reviewed, there may still be some phonetic and typographical errors. These areas are purely typographical due to the imperfection of the software programs, and do not reflect any compromise in the patient's medical care. Plan discussed with: Other (nurse) MARCO ANTONIO LAMB MD Jul 06, 2024 06:39
[2024-07-06 07:16] LABS: Anion Gap 10 (5-15); Carbon Dioxide 23 mmol/L (20-31); Chloride 105 mmol/L (98-107); Potassium 3.6 mmol/L (3.5-5.1); Sodium 138 mmol/L (136-145)
[2024-07-06 07:22] LABS: Glucose 78 mg/dL (74-106); Magnesium 1.6 mg/dL (1.6-2.6)
[2024-07-06 07:23] LABS: Basophils # (auto) 0 10 ^3/uL (0-0.2); Basophils % (auto) 0.5 % (0.0-2.0); Eosinophils # (auto) 0 10 ^3/uL (0-0.8); Eosinophils % (auto) 1.2 % (0.0-7.0); Hematocrit 42.2 % (36.0-46.0); Lymphocytes # (auto) 1.5 10 ^3/uL (0.4-5.4); Lymphocytes % (auto) 36.6 % (10.0-50.0); Mean Corpuscular Hemoglobin 31.2 pg (28.0-32.0); Mean Corpuscular Hgb Conc. 33.2 g/dL (32.0-36.0); Mean Corpuscular Volume 94.2 fL (80.0-100.0); Monocytes # (auto) 0.7 10 ^3/uL (0-1.3); Neutrophils # (auto) 1.9 10 ^3/uL (1.6-8.6); Neutrophils % (auto) 45.7 % (37.0-80.0); Nucleated Red Blood Cells % 0.2 %; Platelet Count (auto) 181 10^3/uL (140-450); Red Blood Cells 4.48 10^6/uL (4.0-5.20); Red Cell Distribution Width 14.4 % (11.8-14.3); White Blood Cell 4.1 10^3/uL (4.4-10.8)
[2024-07-06 07:24] LABS: Blood Urea Nitrogen 6 mg/dL (9-23)
[2024-07-06 11:51] LABS: INR 1.09 (0.9-1.15); Partial Thromboplastin Time 31.1 SEC (24.5-34.5); Prothrombin Time 11.5 sec (9.3-11.8)
[2024-07-06] MEDS ORDERED: APIX2.5T PO (14:09)
[2024-07-06] MEDS ORDERED: APIX5TAB4 PO (14:09)
--- NOTE | 2024-07-06 14:14 | DVHDS2 ---
Discharge Summary Date of Admission Jul 03, 2024 at 19:17 Date of Discharge: Jul 06, 2024 Admitting Diagnosis Pulmonary Embolism Labs/Diagnostic Data: Laboratory Results Test 07/06/24 11:03 07/06/24 06:10 07/05/24 22:00 07/05/24 09:21 Prothrombin Time 11.5 sec (9.3-11.8) Prothrombin Time INR 1.09 (0.9-1.15) Activated Partial Thromboplast Time 31.1 SEC (24.5-34.5) White Blood Count 4.1 10^3/uL (4.4-10.8) Red Blood Count 4.48 10^6/uL (4.0-5.20) Hemoglobin 14.0 g/dL (12.2-16.2) Hematocrit 42.2 % (36.0-46.0) Mean Corpuscular Volume 94.2 fL (80.0-100.0) Mean Corpuscular Hemoglobin 31.2 pg (28.0-32.0) Mean Corpuscular Hemoglobin Concent 33.2 g/dL (32.0-36.0) Red Cell Distribution Width 14.4 % (11.8-14.3) Platelet Count 181 10^3/uL (140-450) Mean Platelet Volume 7.9 fL (6.9-10.8) Neutrophils (%) (Auto) 45.7 % (37.0-80.0) Lymphocytes (%) (Auto) 36.6 % (10.0-50.0) Monocytes (%) (Auto) 16.0 % (0.0-12.0) Eosinophils (%) (Auto) 1.2 % (0.0-7.0) Basophils (%) (Auto) 0.5 % (0.0-2.0) Neutrophils # (Auto) 1.9 10 ^3/uL (1.6-8.6) Lymphocytes # (Auto) 1.5 10 ^3/uL (0.4-5.4) Monocytes # (Auto) 0.7 10 ^3/uL (0-1.3) Eosinophils # (Auto) 0 10 ^3/uL (0-0.8) Basophils # (Auto) 0 10 ^3/uL (0-0.2) Nucleated Red Blood Cells 0.2 % Sodium Level 138 mmol/L (136-145) Potassium Level 3.6 mmol/L (3.5-5.1) Chloride Level 105 mmol/L (98-107) Carbon Dioxide Level 23 mmol/L (20-31) Anion Gap 10 (5-15) Blood Urea Nitrogen 6 mg/dL (9-23) Creatinine 0.43 mg/dL (0.550-1.02) Glomerular Filtration Rate Calc 93 mL/min (>90) BUN/Creatinine Ratio 14.0 (10.0-20.0) Serum Glucose 78 mg/dL (74-106) Calcium Level 9.0 mg/dL (8.7-10.4) Magnesium Level 1.6 mg/dL (1.6-2.6) Influenza Type A Antigen Negative (Negative) Influenza Type B Antigen Negative (Negative) SARS-CoV-2 Antigen (Rapid) Negative (NEGATIVE) Differential Total Cells Counted 100.0 (100) Neutrophils % (Manual) 21 (37.0-80.0) Band Neutrophils % (Manual) 6 Lymphocytes % (Manual) 50 (10.0-50.0) Monocytes % (Manual) 22 (0-12) Eosinophils % (Manual) 0 (0-7) Basophils % (Manual) 0 (0.0-2.0) Metamyelocytes % (manual) 0 Myelocytes % (Manual) 1 Promyelocytes % (Manual) 0 Blast Cells % (Manual) 0 Reactive Lymphocytes 0 Platelet Estimate Adequate Total Bilirubin 0.5 mg/dL (0.2-1.0) Aspartate Amino Transferase (AST) 37 U/L (13-40) Alanine Aminotransferase (ALT) 20 U/L (7-40) Alkaline Phosphatase 44 U/L (46-116) Total Protein 5.1 g/dL (5.7-8.2) Albumin 3.3 g/dL (3.2-4.8) Test 07/03/24 23:47 07/03/24 19:39 07/03/24 14:09 Lactic Acid Level 1.5 mmol/L (0.4-2.0) D-Dimer, Quantitative 1.10 mg/L FEU (0.0-0.49) Troponin I High Sensitivity < 3 ng/L (</=34) Thyroid Stimulating Hormone (TSH) 1.27 uIU/mL (0.55-4.78) B-Type Natriuretic Peptide 185.55 pg/mL (0-100) Other Laboratory Tests 07/06/24 06:10 Brief Hx & Hospital Course: An 89-year-old woman with PMHx of dyslipidemia, hypertension, thyroid disease, GERD, CHF, and AFib (on Xarelto) who presented to ED on 07/03/24 for evaluation of shortness of breath. Patient reported a 3-day history of shortness of breath with associated cough. Patient was found to have small PE. Unable to do thrombectomy. I spoke with the patients daughter over the phone. Patient will return home with hospice now on Eliquis. Condition at Discharge: Poor Final Diagnosis/Problems List # Pulmonary Embolism- Eliquis # Acute Resp Failure- titrate oxygen # Bedbound # Pulm HTN- Monitor for fluid overload Discharge Disposition: Hospice - Home Discharge Statement: "Patient was advised to return to the ER or call 911 if any headaches, dizziness, shortness of breath, chest pain, abdominal pain, bleeding, fevers, or worsening of medical condition. Patient was counseled about treatment plan, medications, possible side effects, patientverbalized understanding. All questions were answered to the best of my ability. This discharge took greater then 30 minutes in planning, reviewing documentation, counseling the patient, and discussing with other team members." ASSESSMENT ASSESSMENT Assessment Date of Service: Jul 06, 2024 Billing Provider: RONAK ROMERO MD Common Visit Codes: [id number] DISCH DAY >30min RONAK ROMERO MD Jul 06, 2024 14:14
--- NOTE | 2024-07-06 23:03 | DVHPN2 ---
Progress Note - Dictate Date Seen: Jul 06, 2024 Medical Necessity Reason Pt with a Central, PICC or Fol: No Subjective Patient seen and examined at bedside. Breathing comfortably on room air Overnight events reviewed. vital signs Vital Sign Date Time Temp Pulse Resp B/P (MAP) Pulse Ox O2 Delivery O2 Flow Rate FiO2 07/06/24 15:36 98.2 79 20 07/06/24 13:23 141/70 (93) 98 07/06/24 09:27 Nasal Cannula* 3 32 Total Intake and Output 07/05/24 07/05/24 07/06/24 15:00 23:00 07:00 Intake Total 700 ml 200 ml Balance 700 ml 200 ml objective Gen.: Patient lying in bed in no apparent distress. On room air. Head: Normocephalic, atraumatic. Eyes: EOMI/PERRLA. Ears: Normal hearing. Normal anatomy. Neck/trachea: Trachea midline, supple. Nose: Normal external anatomy. Mouth: Moist mucous membranes. Chest: Decreased air entry bilaterally. No wheezing or rhonchi. Cardiovascular: Positive S1, positive S2. Regular rate and rhythm. Abdomen: Positive bowel sounds in all 4 quadrants. Soft, non-tender, non- distended. : Deferred. Rectal: Deferred. Skin: Warm, dry. Intact. Extremities: 2+ radial pulses bilaterally. No lower extremity edema. Neuro: Awake, alert, oriented x3. No gross motor or sensory deficits. Cranial nerves II through XII intact. Gait not assessed. laboratory and microbiology Laboratory Tests 07/06/24 06:10 Test 07/06/24 06:10 Range/Units Serum Glucose 78 74-106 mg/dL Assessment/Plan Impression: Acute pulmonary embolism Pulmonary hypertension, right ventricular systolic pressure 53 mmHg Atrial fibrillation Status post pacemaker implantation secondary to sick sinus syndrome Events: Breathing on room air Supplemental oxygen PRN Continue anticoagulation - on therapeutic Lovenox Recommend transition to PO anticoagulation + outpatient followup Echo report reviewed. RVSP is 53 mmHg. Cardiology recommendations appreciated. Continue bronchodilators PRN Continue aspirin/digoxin Incentive spirometry Patient is stable for discharge from the pulmonary standpoint. Follow up in 2 weeks in Pulmonary Clinic. Labs and imaging reviewed. Rest of plan as noted below. Plan: CT of the chest report and images reviewed. Positive pulmonary embolism with filling defect in the right main pulmonary artery. Supplemental oxygen PRN Titrate to keep O2 sats above 92%. On therapeutic Lovenox Echo report reviewed. Right ventricular systolic pressure 53 mmHg. Bronchodilators as needed Continue aspirin, digoxin DVT prophylaxis-on therapeutic Lovenox Overall poor prognosis Prognosis: Poor given multiple comorbidities. Rest of plan per hospitalist and other consultants. Thank you Dr. Ta for allowing me to participate in this patient's care. Further recommendations will depend on patient's clinical course. Please do not hesitate to contact me if you have any questions or concerns. This medical document was created using an electronic medical record system with [employer] dictation system. Although this document has been carefully reviewed, there may still be some phonetic and typographical errors. These areas are purely typographical due to imperfections of the software programs, and do not reflect any compromise in the patient's medical care. Plan discussed with: Patient, Other (RN) ELIZABETH MARQUEZ MD Jul 06, 2024 23:03
== END 2024-07-06 17:20 | disposition hospice, home (50) | DRG 175 ==
LOC: ER 13:14 → EDBD 13:14 → EDSEX 13:14 → OVERFLOW 19:17 → WEST WING 21:59 → TELE-WESTW 07-04 08:10 → WEST WING 07-05 14:42 → TELE-WESTW 07-06 03:26
PROVIDERS: ADMIT Internal Medicine; ATTEND Internal Medicine
PROC: 4B02XSZ Measurement of Cardiac Pacemaker, External Approach (ICD-10-PCS; principal; 2024-07-04)
DX: I26.99 Other pulmonary embolism without acute cor pulmonale (principal); J96.01 Acute respiratory failure with hypoxia; I50.32 Chronic diastolic (congestive) heart failure; Z20.822 Contact with and (suspected) exposure to COVID-19; I11.0 Hypertensive heart disease with heart failure; K21.9 Gastro-esophageal reflux disease without esophagitis; E78.5 Hyperlipidemia, unspecified; I27.20 Pulmonary hypertension, unspecified; I48.91 Unspecified atrial fibrillation; I49.5 Sick sinus syndrome; Z90.49 Acquired absence of other specified parts of digestive tract; Z90.710 Acquired absence of both cervix and uterus; Z88.0 Allergy status to penicillin; Z88.2 Allergy status to sulfonamides; Z95.0 Presence of cardiac pacemaker; Z79.899 Other long term (current) drug therapy; Z79.84 Long term (current) use of oral hypoglycemic drugs; Z82.49 Family history of ischemic heart disease and other diseases of the circulatory system; Z79.01 Long term (current) use of anticoagulants; Z74.01 Bed confinement status
CPT/HCPCS: 36415; 71045; 71275; 80048; 80053; 83605; 83735; 83880; 84443; 84484; 85007; 85025; 85027; 85379; 85610; 85730; 86850; 86900; 86901; 87426; 87804; 93005; 93306; 94640; G0378

== ENCOUNTER 2024-07-09 17:00 | Inpatient (IN) | payer OTHER, MEDICAID ==
[~2024-07-09] VITALS: Ht 172.7 cm; Wt 69.4 kg
[~2024-07-09 17:00] MED LIST changes: +APIX2.5T PO; +APIX5TAB4 PO; -NITR-87 PO; -POTA-36 PO; -RIV15T PO
[2024-07-09] MEDS: HEPARIN SODIUM (PORCINE) 5000 UNITS/ML 1ML VIAL IV ONE (17:45)
[2024-07-09] MEDS: dilTIAZem 25 MG/5 ML VIAL IV ONE ×2 (18:07→21:51)
[2024-07-09] MEDS: HEPARIN DRIP/D5W 100UNITS/ML 250 ML IV SCH ×2 (18:18→18:44)
--- NOTE | 2024-07-09 18:19 | ECG ---
[facility] Test Date: 2024-07-09 Test Time: 17:32:12 Pat Name: ERICA RICH Department: ER Room: 0275T Gender: F Chief Psychology: ER : 1935 Requested By: BROOKE CHAVEZ Order Number: [id number] Reading MD: Maximus De La Rosa Measurements Intervals [place] Rate: 167 P: 0 OK: 0 QRS: 116 QRSD: 102 T: 0 QT: 277 QTc: 462 Interpretive Statements Atrial fibrillation with rapid V-rate Ventricular premature complex Aberrant complex Right axis deviation Repolarization abnormality, prob rate related Electronically Signed On 07-10-2024 18:48:03 PST by Maximus De La Rosa Please click the below link to view image of tracing.
[2024-07-09 18:22] VITALS: PULSE 106; RESP 15; O2SAT 94
--- NOTE | 2024-07-09 18:30 | DVH ---
CHEST RADIOGRAPH Indication: sob Technique: Single frontal view of the chest was obtained COMPARISON: XY CHEST PORTABLE on DOS: 07/03/24, CHEST XRAY 1 VIEW on DOS: 07/24/21 FINDINGS: Lines and Tubes: Left chest wall pacemaker Lungs: Mild congestion Pleura: No effusion. No pneumothorax. Cardiomediastinal contours: Unremarkable Bones: Unremarkable IMPRESSION: Mild pulmonary vascular congestion.
--- NOTE | 2024-07-09 18:49 | ED.PDOC ---
SOB-HPI HPI Comments 89Y F with PMHx PE, CHF, HTN, HLD, Afib, GERD, thyroid disease, and pacemaker presents to ED for chief complaint SOB x1day and productive cough. Pt was discharged from [facility] on 07/06/2024 after being diagnosed with a pulmonary embolism with filling defect noted in right main pulmonary artery, was prescribed Eliquis, and was advised to discontinue Xarelto. Pt states she has not taken Xarelto since she was last admitted, unless it was administered during her recent hospital stay. 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 Chief Complaint: Shortness of Breath Time Seen by MD: 18:20 Primary Care Provider: [facility]FI Vazquez notes: Nurses Notes, Medications, Allergies Information Source: Patient Mode of Arrival: Wheelchair Severity: Moderate Timing: Days Duration: Since onset Context: At Rest PE Risk Factors: None History of: DVT/PE Prehospital treatment: None Modifying Factors: Nothing Associated Signs and Symptoms: Cough If cough with SOB: Productive Past Medical History PAST MEDICAL HISTORY: AFIB, CHF, GERD, High Lipids, HTN, PE, Thyroid Surgical History: Appendectomy, Cholecystectomy, Hysterectomy, Pacemaker, Thyroidectomy, Tonsillectomy INFORMATION OFFICER History: No Pertinent INFORMATION OFFICER History Family History Family History: Reviewed,noncontributory to illness Social History Smoker: Non-Smoker Alcohol: Occasionally Drugs: Denies Drug Use Lives In: Home Constitutional: denies: chills, diaphoresis, fatigue, fever, malaise, sweats, weakness, others EENTM: denies: blurred vision, double vision, ear bleeding, ear discharge, ear drainage, ear pain, ear ringing, eye pain, eye redness, hearing loss, mouth pain, mouth swelling, nasal discharge, nose bleeding, nose congestion, nose pain, photophobia, tearing, throat pain, throat swelling, voice changes, others Respiratory: reports: cough, shortness of breath; denies: hemoptysis, orthopnea, SOB at rest, SOB with excertion, stridor, wheezing, others Cardiovascular: denies: chest pain, dizzy spells, diaphoresis, Dyspnea on exertion, edema, irregular heart beat, left arm pain, lightheadedness, palpitations, PND, syncope, others Gastrointestinal: denies: abdomen distended, abdominal pain, blood streaked bowels, constipated, diarrhea, dysphagia, difficulty swallowing, hematemesis, melena, nausea, poor appetite, poor fluid intake, rectal bleeding, rectal pain, vomiting, others Genitourinary: denies: abnormal vagina bleeding, burning, dyspareunia, dysuria, flank pain, frequency, hematuria, incontinence, pain, , vagina discharge, urgency, others Neurological: denies: dizziness, fainting, headache, left sided numbness, left sided weakness, numbness, paresthesia, pre-existing deficit, right sided numbness, right sided weakness, seizure, speech problems, tingling, tremors, weakness, others Musculoskeletal: denies: back pain, gout, joint pain, joint swelling, muscle pain, muscle stiffness, neck pain, others Integumetry: denies: bruises, change in color, change in hair/nails, dryness, laceration, lesions, lumps, rash, wounds, others Allergic/Immunocompromised: denies: Difficulty Healing, Frequent Infections, Hives, Itching, others Hematologic/Lymphatic: reports: blood clots; denies: anemia, easy bleeding, ea sy bruising, swollen glands, others Endocrine: denies: excessive hunger, excessive sweating, excessive thirst, excessive urination, flushing, intolerance to cold, intolerance to heat, unexplained weight gain, unexplained weight loss, others Psychiatric: denies: anxiety, bipolar disorder, depression, hopeless, panic disorder, schizophrenia, sleepless, suicidal, others All Other Systems: Reviewed and Negative Physical Exam General Appearance: Mild Distress HEENT: Other (Pupils symmetric. Moist mucous membranes.) Neck: Full Range of Motion, Normal Inspection Respiratory: No Accessory Muscle Use, No Respiratory Distress, Rales, Rhonchi Cardiovascular: Irregular, No Edema, No JVD, Tachycardia Breast Exam: Deferred Gastrointestinal: Non Tender, Soft Genitalia: Deferred Pelvic: Deferred Rectal: Deferred Extremities: No calf tenderness, Normal inspection, Normal range of motion, Non-tender, No pedal edema Neurologic: Alert (Oriented x4), Normal Affect, Normal Mood, Other (Ambulatory. No gross focal deficit.) Cerebellar Function: NOT DONE Reflexes: NOT DONE Skin: Dry, Normal Color, Warm Lymphatic: NOT DONE EKG EKG : Comments AFib with RVR, rate 167, normal QRS interval, QTC prolonged at 462, right axis deviation, normal QRS, inferior and lateral ST depression Was a procedure done? Was a procedure done?: No Differential Dx Differential Diagnosis: Asthma, Bronchitis, CHF, COPD, Hyperventilation, Myocardial infarction, Panic Attack, Pneumonia, Pneumothorax, PSVT, Pulmonary Embolism, Respiratory Distress, URI X-Ray, Labs, Meds, VS Vital Signs Date Time Temp Pulse Resp B/P (MAP) Pulse Ox O2 Delivery O2 Flow Rate FiO2 07/09/24 22:00 102 34 135/81 (99) 98 07/09/24 20:20 115 20 97 Room Air* 0 21 07/09/24 20:00 97.7 109 35 149/79 (102) 98 97.7 07/09/24 18:24 98.4 119 34 144/86 (105) 94 98.4 07/09/24 18:22 106 15 94 Room Air* 0 21 07/09/24 18:00 141 07/09/24 17:44 22 94 Room Air* 0 21 07/09/24 17:38 97.8 167 22 136/74 (94) 94 07/09/24 17:32 167 Lab Test 07/09/24 19:47 07/09/24 18:36 Range/Units Troponin I High Sensitivity 4 3 L </=34 ng/L White Blood Count 8.0 # 4.4-10.8 10^3/uL Red Blood Count 4.92 4.0-5.20 10^6/uL Hemoglobin 15.4 12.2-16.2 g/dL Hematocrit 46.2 H 36.0-46.0 % Mean Corpuscular Volume 93.9 80.0-100.0 fL Mean Corpuscular Hemoglobin 31.2 28.0-32.0 pg Mean Corpuscular Hemoglobin Concent 33.3 32.0-36.0 g/dL Red Cell Distribution Width 14.2 11.8-14.3 % Platelet Count 264 140-450 10^3/uL Mean Platelet Volume 8.2 6.9-10.8 fL Neutrophils (%) (Auto) 77.6 37.0-80.0 % Lymphocytes (%) (Auto) 12.0 10.0-50.0 % Monocytes (%) (Auto) 9.5 0.0-12.0 % Eosinophils (%) (Auto) 0.6 0.0-7.0 % Basophils (%) (Auto) 0.3 0.0-2.0 % Neutrophils # (Auto) 6.2 1.6-8.6 10 ^3/uL Lymphocytes # (Auto) 1.0 0.4-5.4 10 ^3/uL Monocytes # (Auto) 0.8 0-1.3 10 ^3/uL Eosinophils # (Auto) 0 0-0.8 10 ^3/uL Basophils # (Auto) 0 0-0.2 10 ^3/uL Nucleated Red Blood Cells 0.2 % Prothrombin Time 12.4 H 9.3-11.8 sec Prothrombin Time INR 1.19 H 0.9-1.15 Activated Partial Thromboplast Time 132.8 *H 24.5-34.5 SEC Sodium Level 140 136-145 mmol/L Potassium Level 3.7 3.5-5.1 mmol/L Chloride Level 103 98-107 mmol/L Carbon Dioxide Level 24 20-31 mmol/L Anion Gap 13 5-15 Blood Urea Nitrogen 10 9-23 mg/dL Creatinine 0.64 # 0.550-1.02 mg/dL Glomerular Filtration Rate Calc 85 >90 mL/min BUN/Creatinine Ratio 15.6 10.0-20.0 Serum Glucose 108 H 74-106 mg/dL Calcium Level 9.4 8.7-10.4 mg/dL B-Type Natriuretic Peptide 112.39 0-100 pg/mL Current Medications Medications (Trade) Dose Ordered Sig/Francisco J Route Start Time Stop Time Status Last Admin Diltiazem HCl (Cardizem Injection) 10 mg ONCE ONCE IV 07/09/24 17:45 07/09/24 17:46 DC 07/09/24 18:07 Heparin Sodium (Porcine) 5,000 units ONCE ONCE IV 07/09/24 17:45 07/09/24 17:46 DC 07/09/24 18:29 Heparin Sodium/ Dextrose 250 ml @ 11 mls/hr [id number] IV 07/09/24 18:30 07/09/24 18:44 Diltiazem HCl (Cardizem Injection) 10 mg ONCE ONCE IV 07/09/24 21:45 07/09/24 21:46 DC 07/09/24 21:51 ORDERING PHYSICIAN: BROOKE FULLER MD PROCEDURE(s): CXRP - CHEST PORTABLE REASON: sob ORDER NUMBER(s): [id number], ACCESSION NUMBER(s): [id number] CHEST RADIOGRAPH Indication: sob Technique: Single frontal view of the chest was obtained COMPARISON: XY CHEST PORTABLE on DOS: 07/03/24, CHEST XRAY 1 VIEW on DOS: 07/24/21 FINDINGS: Lines and Tubes: Left chest wall pacemaker Lungs: Mild congestion Pleura: No effusion. No pneumothorax. Cardiomediastinal contours: Unremarkable Bones: Unremarkable IMPRESSION: Mild pulmonary vascular congestion. X-Ray, Labs, Meds, VS Comment 89Y F with PMHx PE, CHF, HTN, HLD, Afib, GERD, thyroid disease, and pacemaker presents to ED for chief complaint SOB x1day and productive cough. Vitals remarkable for heart rate 141 Exam remarkable for irregularly irregular tachycardia and rales/rhonchi bilaterally Rhythm strip independently interpreted by me: AFib with RVR, rate 167, no PVCs. Chest x-ray IMPRESSION: Mild pulmonary vascular congestion. CBC unremarkable, metabolic panel unremarkable, 2 serial troponins negative, BNP 112.39, PT 12.4, INR 1.19, PTT 132.8 Patient treated with the following in the ED: Cardizem 10 mg IV x2, heparin 5000 units IV bolus On re-evaluation, patient is saturating normally on nasal cannula oxygen, denies chest pain or shortness a breath, and heart rate is in the low 100s. Plan is to admit the patient for rate control and ongoing anticoagulation. Time of 1ST Reevaluation: 18:50 Reevaluation 1ST: Unchanged Patient Education/Counseling: Diagnosis, Treatment Family Education/Counseling: No Family Present Departure 1 Departure Time of Disposition: 23:26 Impression: Primary Impression: Rapid atrial fibrillation Disposition: ADMITTED INPATIENT Admit to: [facility] Condition: Guarded Critical Care Note Critical Care Time?: Yes (45 min-critical care time only) Critical care comment: Critical care time including multiple bedside re-evaluations, review of lab and imaging studies, and discussion of the case with the admitting provider. Patient is high risk for hemodynamic and/or respiratory decompensation. Stability Stability form required: No Heart Score Heart Score: Heart Score Response (Comments) Value History N/A 0 EKG N/A 0 Age N/A 0 Risk Factors N/A 0 Troponin N/A 0 Total 0 I personally scribed for BROOKE FULLER MD ([facility]) on 07/09/24 at 18:49. Electronically submitted by Ilsa Busby ([facility]). I personally scribed for BROOKE FULLER MD ([facility]) on 07/09/24 at 19:22. Electronically submitted by Ilsa Busby ([facility]). BROOKE FULLER MD Jul 09, 2024 18:49
[2024-07-09 19:13] LABS: Basophils # (auto) 0 10 ^3/uL (0-0.2); Basophils % (auto) 0.3 % (0.0-2.0); Eosinophils # (auto) 0 10 ^3/uL (0-0.8); Eosinophils % (auto) 0.6 % (0.0-7.0); Hematocrit 46.2 % (36.0-46.0); Hemoglobin 15.4 g/dL (12.2-16.2); Mean Corpuscular Hemoglobin 31.2 pg (28.0-32.0); Mean Corpuscular Hgb Conc. 33.3 g/dL (32.0-36.0); Mean Corpuscular Volume 93.9 fL (80.0-100.0); Monocytes # (auto) 0.8 10 ^3/uL (0-1.3); Monocytes % (auto) 9.5 % (0.0-12.0); Neutrophils # (auto) 6.2 10 ^3/uL (1.6-8.6); Neutrophils % (auto) 77.6 % (37.0-80.0); Nucleated Red Blood Cells % 0.2 %; Platelet Count (auto) 264 10^3/uL (140-450); Red Blood Cells 4.92 10^6/uL (4.0-5.20); Red Cell Distribution Width 14.2 % (11.8-14.3)
[2024-07-09 19:29] LABS: Chloride 103 mmol/L (98-107); Potassium 3.7 mmol/L (3.5-5.1); Sodium 140 mmol/L (136-145)
[2024-07-09 19:30] LABS: Anion Gap 13 (5-15); Calcium 9.4 mg/dL (8.7-10.4); Carbon Dioxide 24 mmol/L (20-31)
[2024-07-09 19:35] LABS: BUN/Creatinine Ratio 15.6 (10.0-20.0); Blood Urea Nitrogen 10 mg/dL (9-23); Glucose 108 mg/dL (74-106)
[2024-07-09 19:44] LABS: INR 1.19 (0.9-1.15); Prothrombin Time 12.4 sec (9.3-11.8)
[2024-07-09 19:47] LABS: Partial Thromboplastin Time 132.8 SEC (24.5-34.5)
[2024-07-09 20:20] VITALS: PULSE 115; RESP 20; O2SAT 97
[2024-07-10] VITALS (7 sets, daily range): BP systolic 108–142; BP diastolic 57–87; PULSE 73–124; RESP 16–20; TEMP 97.5–98.6; O2SAT 92–98
[2024-07-10] MEDS ORDERED: DOCUSATE SOD 100 MG CAP PO PRN
[2024-07-10] MEDS ORDERED: ONDANSETRON HCL 4 MG/2 ML VIAL IV PRN
[2024-07-10] MEDS ORDERED: ACETAMINOPHEN 325 MG TAB PO PRN
[2024-07-10 00:45] LABS: INR 1.14 (0.9-1.15); Partial Thromboplastin Time 27.3 SEC (24.5-34.5); Prothrombin Time 11.9 sec (9.3-11.8)
[2024-07-10] MEDS ORDERED: MORPHINE SULFATE INJ 2 MG/ml SYRG IV PRN (01:45)
[2024-07-10] MEDS ORDERED: NITROGLYCERIN 0.4 MG SL TAB SL PRN (01:45)
--- NOTE | 2024-07-10 01:50 | DVHHP2 ---
History of Present Illness Reason for Visit: Atrial fibrillation History of Present Illness The patient is 89-year-old female with multiple past medical history including CHF, AFib, GERD, PE, and hypertension who presented to [facility] ED with complaint of shortness of breaths for the past 1 day. Patient reports she has been experiencing associated nonproductive cough, increased work of breathing, getting worse that prompted this visit. Patient was recently discharged from this facility July 06, 2024 with diagnosis of pulmonary embolism with filling defect noted in the right main pulmonary artery, was prescribed Eliquis and was advised to discontinue Xarelto. 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 Patient was seen and evaluated in the ED, laboratory data shows WBC 8.0, platelets 264, sodium 140, potassium 3.7, BUN 10, creatinine 0.64, GFR 85, glucose 108, troponin 3, BNP 112.39, PT 12.4 trending down to 11.9, INR 1.19 trending down to 1.14, APTT 132.8 trending down to 27.3, blood pressure 135/81, heart rate 167 trending down to 102, temperature 97.7 F, O2 saturation 98% on oxygen. Patient was started on heparin drip, please see medication orders section in the computer. On my assessment, patient denied chest pain, no headache, no dizziness, no diaphoresis, abdominal pain, no nausea, no vomiting, no fever, no chills. Patient was admitted for further evaluation and medical management. Past Medical History AFIB, CHF, GERD, High Lipids, HTN, PE, Thyroid Past Surgical History Appendectomy, Cholecystectomy, Hysterectomy, Pacemaker, Thyroidectomy, Tonsillectomy Family History Reviewed, noncontributory to the management of this case. Past Social History The patient lives at home, denies smoking, alcohol or illicit drugs abuse. Review of Systems Constitutional: Yes: Weakness; No: Fever, Chills, Sweats, Malaise, Other Eyes: No: Pain, Vision change, Conjunctivae inflammation, Eyelid inflammation, Other, Redness ENT: No: Ear pain, Ear discharge, Nose pain, Nose discharge, Nose congestion, Mouth pain, Mouth swelling, Throat pain, Throat swelling, Other Respiratory: Cough, Shortness of breath; No: Dry, SOB with excertion, Wheezing, Hemoptysis, Pleuritic Pain, Sputum, Wheezing, Other Cardiovascular: No: Chest Pain, Palpitations, Orthopnea, Paroxysmal Noc. Dyspnea, Edema, Lt Headedness, Other Gastrointestinal: No: Nausea, Vomiting, Abdominal Pain, Diarrhea, Constipation, Melena, Hematochezia, Other Genitourinary: No Dysuria, No Frequency, No Incontinence, No Hematuria, No Retention, No Other Musculoskeletal: No: other, neck pain, shoulder pain, arm pain, back pain, hand pain, leg pain, foot pain Skin: No: Rash, Lesions, Jaundice, Bruising, Other Neurological: No: Weakness, Numbness, Incoordination, Change in speech, Confusion, Seizures, Other Allergies: Coded Allergies: Penicillins (Verified Allergy, Unknown, 03/08/21) Sulfa Drugs (Verified Allergy, Unknown, 03/08/21) Medications Current Medications Medications Dose Ordered Sig/Francisco J Route Start Time Stop Time Status Last Admin Dose Admin Heparin Sodium/ Dextrose 250 ml @ 11 mls/hr [id number] IV 07/09/24 18:30 07/09/24 18:44 11 MLS/HR Levothyroxine Sodium 112 mcg QAM@0600 PO 07/10/24 06:00 Furosemide 20 mg DAILY IV 07/10/24 10:00 Gabapentin 300 mg BID PO 07/10/24 10:00 Apixaban 2.5 mg BID PO 07/10/24 10:00 UNV Sodium Chloride 10 ml Q8HR IV 07/10/24 06:00 Acetaminophen/ Hydrocodone Bitart 1 tab Q4HP PRN PO 07/10/24 00:00 Ondansetron HCl 4 mg Q4HP PRN IV 07/10/24 00:00 Docusate Sodium 100 mg BIDPRN PRN PO 07/10/24 00:00 Acetaminophen 650 mg Q6HP PRN PO 07/10/24 00:00 Exam Vital Signs Vital Signs Date Time Temp Pulse Resp B/P (MAP) Pulse Ox O2 Delivery O2 Flow Rate FiO2 07/10/24 01:00 102 22 159/82 (107) 98 07/09/24 20:20 Room Air* 0 21 07/09/24 20:00 97.7 97.7 General Appearance: Alert, Oriented X3, Cooperative, No acute distress HEENT: Atraumatic, PERRLA, EOMI, Mucous membr. moist/pink Respiratory: Normal air movement, Other (Diminished breath sounds) Cardiovascular: Regular rate, Normal S1, Normal S2, No murmurs Abdominal: Normal bowel sounds, Soft, No tenderness, No hepatospenomegaly, No masses Extremities: No clubbing, No cyanosis, No edema, Normal pulses, No tenderness/swelling Skin: No rashes, No breakdown, No significant lesion Neuro: Normal speech, Normal tone, Sensation intact, Cranial nerves 3-12 NL, Reflexes 2+, Other (Generalized weakness) Psych/Mental Status: Mental status NL, Mood NL Labs/Xrays Labs Test 07/10/24 00:22 07/09/24 19:47 07/09/24 18:36 Range/Units Prothrombin Time 11.9 H 9.3-11.8 sec Prothrombin Time INR 1.14 0.9-1.15 Activated Partial Thromboplast Time 27.3 24.5-34.5 SEC Troponin I High Sensitivity 4 </=34 ng/L Thyroid Stimulating Hormone (TSH) 2.87 0.55-4.78 uIU/mL White Blood Count 8.0 # 4.4-10.8 10^3/uL Red Blood Count 4.92 4.0-5.20 10^6/uL Hemoglobin 15.4 12.2-16.2 g/dL Hematocrit 46.2 H 36.0-46.0 % Mean Corpuscular Volume 93.9 80.0-100.0 fL Mean Corpuscular Hemoglobin 31.2 28.0-32.0 pg Mean Corpuscular Hemoglobin Concent 33.3 32.0-36.0 g/dL Red Cell Distribution Width 14.2 11.8-14.3 % Platelet Count 264 140-450 10^3/uL Mean Platelet Volume 8.2 6.9-10.8 fL Neutrophils (%) (Auto) 77.6 37.0-80.0 % Lymphocytes (%) (Auto) 12.0 10.0-50.0 % Monocytes (%) (Auto) 9.5 0.0-12.0 % Eosinophils (%) (Auto) 0.6 0.0-7.0 % Basophils (%) (Auto) 0.3 0.0-2.0 % Neutrophils # (Auto) 6.2 1.6-8.6 10 ^3/uL Lymphocytes # (Auto) 1.0 0.4-5.4 10 ^3/uL Monocytes # (Auto) 0.8 0-1.3 10 ^3/uL Eosinophils # (Auto) 0 0-0.8 10 ^3/uL Basophils # (Auto) 0 0-0.2 10 ^3/uL Nucleated Red Blood Cells 0.2 % Sodium Level 140 136-145 mmol/L Potassium Level 3.7 3.5-5.1 mmol/L Chloride Level 103 98-107 mmol/L Carbon Dioxide Level 24 20-31 mmol/L Anion Gap 13 5-15 Blood Urea Nitrogen 10 9-23 mg/dL Creatinine 0.64 # 0.550-1.02 mg/dL Glomerular Filtration Rate Calc 85 >90 mL/min BUN/Creatinine Ratio 15.6 10.0-20.0 Serum Glucose 108 H 74-106 mg/dL Calcium Level 9.4 8.7-10.4 mg/dL B-Type Natriuretic Peptide 112.39 0-100 pg/mL PATIENT: ERICA RICH ACCT: [id number] UNIT: [id number] : 1935 LOC: [facility] ROOM / BED: [address] [place] [address] AGE / SEX: 89 / F ADM STATUS: ADM IN SERVICE 06 ORDERING PHYSICIAN: WES SAEED PROCEDURE(s): CTACH - CT ANGIO CHEST CONTRAST REASON: r/o pe ORDER NUMBER(s): [id number], ACCESSION NUMBER(s): [id number] CTA Chest with intravenous contrast INDICATION: r/o pe COMPARISON: None TECHNIQUE: Multidetector spiral CTA of the chest was performed of the chest with intravenous contrast. PULMONARY ANGIOGRAPHY PROTOCOL was utilized using a bolus- tracking technique centered on the main pulmonary artery. Axial, coronal and sagittal multiplanar and MIP reformats were performed. Radiation Dose: 1. Chest: CTDI volume is 8.88 mGy. Dose-length product is 439.09 mGy*cm The dose indicators for CT are the volume Computed Tomography (CT) Dose Index (CTDIvol) and the Dose Length Product (DLP), and are measured in units of mGy and mGy-cm, respectively. These indicators are not patient dose, but values generated from the CT scanner acquisition factors. The report includes radiation exposure data for exposures received during this examination. Findings: Pulmonary artery: There is filling defect in the right main pulmonary artery consistent with pulmonary embolism. Lower neck: Unremarkable. Lungs: No focal consolidation, pleural effusion or pneumothorax. Pleura: No pleural effusion or pneumothorax. Heart/Vascular Structures: Normal heart size. No pericardial effusion. No significant abnormality demonstrated in the thoracic aorta. Lymph Nodes: No evidence of lymphadenopathy. Musculoskeletal: No acute osseous abnormality identified. Bones appear osteopenic. Mild old compression fractures of L1 and L2 vertebral bodies. Soft tissues: Unremarkable. IMPRESSION: Positive for pulmonary embolism with filling defect noted in right main pulmonary artery. PATIENT: ERICA RICH ACCT: [id number] UNIT: [id number] : 1935 LOC: ER ROOM / BED: / AGE / SEX: 89 / F ADM STATUS: REG ER SERVICE 14 ORDERING PHYSICIAN: BROOKE FULLER MD PROCEDURE(s): CXRP - CHEST PORTABLE REASON: sob ORDER NUMBER(s): [id number], ACCESSION NUMBER(s): [id number] CHEST RADIOGRAPH Indication: sob Technique: Single frontal view of the chest was obtained COMPARISON: XY CHEST PORTABLE on DOS: 07/03/24, CHEST XRAY 1 VIEW on DOS: 07/24/21 FINDINGS: Lines and Tubes: Left chest wall pacemaker Lungs: Mild congestion Pleura: No effusion. No pneumothorax. Cardiomediastinal contours: Unremarkable Bones: Unremarkable IMPRESSION: Mild pulmonary vascular congestion. Assessment/Plan Assessment/Plan Rapid atrial fibrillation Pulmonary embolism Shortness of breaths Generalized weakness Plan 1. Admit to telemetry unit 2. Breathing treatment 3. Pain control management 4. Management of fluids and electrolytes 5. Consultation for Cardiology 6. Diagnostic tests chest x-ray 7. DVT prophylaxis-on heparin drip 8. Repeat labs CBC, CMP in a.m. 9. Continue with current medical management 10. Treatment plan discussed with patient and RN. Patient verbalized understanding. Plan discussed with: Patient, Other (RN) My Orders Orders - JOSÉ MANUEL BRITO DNP Procedure Category Date Status Time Levothyroxine Tablet PHA 07/10/24 In Process (Synthroid Tablet) 06:00 Furosemide Injection PHA 07/10/24 In Process (Lasix Injection) 10:00 Gabapentin Capsule PHA 07/10/24 In Process (Neurontin Capsule) 10:00 Apixaban (Eliquis) PHA 07/10/24 Pending 10:00 Allergies ENEDINA 07/09/24 In Process 23:48 Code Status CODE 07/09/24 Transmitted 23:48 Sodium Chloride Lock PHA 07/10/24 In Process (Saline Lock Ns) 06:00 Oxygen Per Hour RT 07/09/24 Transmitted 23:48 Hydrocodone-Acet PHA 07/10/24 In Process 5/325mg Tab ([place] 00:00 Ondansetron Hcl PHA 07/10/24 In Process (Zofran) 00:00 Docusate Sodium PHA 07/10/24 In Process Capsule (Colace 00:00 Fall Risk Precautions ENEDINA 07/09/[address] 23:48 Comprehensive LAB 07/10/24 Logged Metabolic Panel 04:00 Cardiac DIET 07/10/24 Transmitted Diet-2gna,Lofat,Lochol Breakfast Condition: Serious ENEDINA 07/09/24 In Process 23:48 Acetaminophen Tablet PHA 07/10/24 In Process (Tylenol Tablet) 00:00 Bedrest With Bathroom ENEDINA 07/09/24 In Process Privileg 23:48 Sequential ENEDINA 07/09/24 In Process Compression Device * Cardiology Consult CONS 07/10/24 Transmitted 00:27 Problem List: (1) Rapid atrial fibrillation (2) Pulmonary embolism (3) Shortness of breath (4) Generalized weakness Date of Service: Jul 10, 2024 Billing Provider: JOSÉ MANUEL BRITO DNP Common Visit Codes: [id number] INP/OBS CARE (HIGH) JOSÉ MANUEL BRITO DNP Jul 10, 2024 01:50
[2024-07-10] MEDS: CARVEDILOL 12.5 MG TAB PO ONE (02:58)
[2024-07-10] MEDS: HYDROcodone-ACET 5/325MG TAB PO PRN (04:46)
[2024-07-10] MEDS: SODIUM CHLOR 0.9% PF (SALINE LOCK) 10ML VIAL/SYR IV SCH (05:42)
[2024-07-10] MEDS: LEVOTHYROXINE SODIUM 112 MCG TAB PO SCH (05:42)
[2024-07-10] MEDS ORDERED: ALBU0.084 IN (06:32)
[2024-07-10] MEDS ORDERED: TEMA15CA2 PO (06:32)
[2024-07-10] MEDS ORDERED: AML5T PO (06:32)
[2024-07-10] MEDS ORDERED: ONDA-155 PO (06:32)
[2024-07-10] MEDS ORDERED: DICY10CA PO (06:32)
[2024-07-10] MEDS ORDERED: AMIT25TA20 PO (06:32)
[2024-07-10] MEDS ORDERED: MORP30TA PO (06:32)
[2024-07-10] MEDS ORDERED: SENN-58 PO (06:32)
[2024-07-10] MEDS ORDERED: TRAM50TA2 PO (06:32)
[2024-07-10] MEDS ORDERED: METH4TAB PO (06:32)
[2024-07-10] MEDS ORDERED: IBUP-1453 PO (06:32)
[2024-07-10] MEDS ORDERED: DEXA4TAB PO (06:32)
[2024-07-10] MEDS ORDERED: ZINC220T6 PO (06:32)
[2024-07-10] MEDS: FUROSEMIDE 20 MG/2 ML VIAL IV SCH (09:47)
[2024-07-10] MEDS: CARVEDILOL 12.5 MG TAB PO SCH (09:48)
[2024-07-10] MEDS: APIXABAN 2.5 MG TAB PO SCH (09:48)
[2024-07-10] MEDS: GABAPENTIN 300 MG CAP PO SCH (09:48)
[2024-07-10 11:01] LABS: Basophils # (auto) 0.1 10 ^3/uL (0-0.2); Basophils % (auto) 0.8 % (0.0-2.0); Eosinophils # (auto) 0.1 10 ^3/uL (0-0.8); Eosinophils % (auto) 0.9 % (0.0-7.0); Hematocrit 42.2 % (36.0-46.0); Hemoglobin 13.9 g/dL (12.2-16.2); Lymphocytes # (auto) 1.4 10 ^3/uL (0.4-5.4); Lymphocytes % (auto) 22.8 % (10.0-50.0); Mean Corpuscular Hgb Conc. 32.9 g/dL (32.0-36.0); Mean Corpuscular Volume 94.3 fL (80.0-100.0); Monocytes # (auto) 0.7 10 ^3/uL (0-1.3); Monocytes % (auto) 10.8 % (0.0-12.0); Neutrophils # (auto) 4.1 10 ^3/uL (1.6-8.6); Neutrophils % (auto) 64.7 % (37.0-80.0); Nucleated Red Blood Cells % 0.1 %; Platelet Count (auto) 232 10^3/uL (140-450); Red Blood Cells 4.47 10^6/uL (4.0-5.20); Red Cell Distribution Width 14.1 % (11.8-14.3); White Blood Cell 6.3 10^3/uL (4.4-10.8)
[2024-07-10 11:22] LABS: Alanine Aminotransferase 19 U/L (7-40); Albumin 3.4 g/dL (3.2-4.8); Alkaline Phosphatase 52 U/L (46-116); Anion Gap 10 (5-15); Aspartate Aminotransferase 26 U/L (13-40); Bilirubin, Total 0.7 mg/dL (0.2-1.0); Calcium 9.1 mg/dL (8.7-10.4); Carbon Dioxide 27 mmol/L (20-31); Chloride 102 mmol/L (98-107); Sodium 139 mmol/L (136-145)
[2024-07-10 11:28] LABS: Blood Urea Nitrogen 8 mg/dL (9-23); Glucose 181 mg/dL (74-106); Potassium 3.3 mmol/L (3.5-5.1); Total Protein 5.7 g/dL (5.7-8.2)
[2024-07-10 12:04] LABS: INR 1.2 (0.9-1.15); Partial Thromboplastin Time 47.8 SEC (24.5-34.5); Prothrombin Time 12.5 sec (9.3-11.8)
[2024-07-10] MEDS: HEPARIN DRIP/D5W 100UNITS/ML 250 ML IV SCH (12:15)
--- NOTE | 2024-07-10 13:08 | DVHPN2 ---
Reviewed: Care Plan, H&P, Labs, Medications, Previous Orders, Radiology Changes from previous H/P or p: No Changes Eyes: No Pain, No Vision change, No Conjunctivae inflammation, No Eyelid inflammation, No Other, No Redness ENT: No Ear pain, No Ear discharge, No Nose pain, No Nose discharge, No Nose congestion, No Mouth pain, No Mouth swelling, No Throat pain, No Throat swelling, No Other Cardiovascular: No Chest Pain, No Palpitations, No Orthopnea, No Paroxysmal Noc. Dyspnea, No Edema, No Lt Headedness, No Other Respiratory: Cough; No Dry; Shortness of breath; No SOB with excertion, No Wheezing, No Hemoptysis, No Pleuritic Pain, No Sputum, No Other Gastrointestinal: No Nausea, No Vomiting, No Abdominal Pain, No Diarrhea, No Constipation, No Melena, No Hematochezia, No Other Genitourinary: No Dysuria, No Frequency, No Incontinence, No Hematuria, No Retention, No Other Musculoskeletal: No other, No neck pain, No shoulder pain, No arm pain, No back pain, No hand pain, No leg pain, No foot pain Skin: No Rash, No Lesions, No Jaundice, No Bruising, No Other Objective Vitals Vital Signs Date Time Temp Pulse Resp B/P (MAP) Pulse Ox O2 Delivery O2 Flow Rate FiO2 07/10/24 09:48 83 114/72 07/10/24 09:46 16 98 Nasal Cannula* 2 28 07/10/24 09:00 97.5 97.5 Intake/Output Intake and Output 07/10/24 07:00 Intake Total 66 ml Balance 66 ml Intake IV Total 66 ml Medications Current Medications Medications Dose Ordered Sig/Francisco J Route Start Time Stop Time Status Last Admin Dose Admin Levothyroxine Sodium 112 mcg QAM@0600 PO 07/10/24 06:00 07/10/24 05:42 112 MCG Furosemide 20 mg DAILY IV 07/10/24 10:00 07/10/24 09:47 20 MG Gabapentin 300 mg BID PO 07/10/24 10:00 07/10/24 09:48 300 MG Apixaban 2.5 mg BID PO 07/10/24 10:00 Hold 07/10/24 09:48 2.5 MG Sodium Chloride 10 ml Q8HR IV 07/10/24 06:00 07/10/24 05:42 10 ML Acetaminophen/ Hydrocodone Bitart 1 tab Q4HP PRN PO 07/10/24 00:00 07/10/24 04:46 1 TAB Ondansetron HCl 4 mg Q4HP PRN IV 07/10/24 00:00 Docusate Sodium 100 mg BIDPRN PRN PO 07/10/24 00:00 Acetaminophen 650 mg Q6HP PRN PO 07/10/24 00:00 Nitroglycerin 0.4 mg Q5MINP PRN SL 07/10/24 01:45 Morphine Sulfate 2 mg Q30M PRN IV 07/10/24 01:45 Carvedilol 12.5 mg Q12HR PO 07/10/24 10:00 07/10/24 09:48 12.5 MG Heparin Sodium/ Dextrose 250 ml @ 13 mls/hr [id number] IV 07/10/24 12:15 07/10/24 12:15 13 MLS/HR Laboratory Results Laboratory Tests 07/10/24 10:15 Chemistry Test 07/09/24 18:36 07/10/24 10:15 Calcium Level 9.4 mg/dL (8.7-10.4) 9.1 mg/dL (8.7-10.4) Albumin 3.4 g/dL (3.2-4.8) Total Protein 5.7 g/dL (5.7-8.2) Coagulation Test 07/09/24 18:36 07/10/24 00:22 07/10/24 10:15 Prothrombin Time 12.4 sec (9.3-11.8) H 11.9 sec (9.3-11.8) H 12.5 sec (9.3-11.8) H Prothrombin Time INR 1.19 (0.9-1.15) H 1.14 (0.9-1.15) 1.20 (0.9-1.15) H Activated Partial Thromboplast Time 132.8 SEC (24.5-34.5) *H 27.3 SEC (24.5-34.5) 47.8 SEC (24.5-34.5) H Cardiac Markers Test 07/09/24 18:36 B-Type Natriuretic Peptide 112.39 pg/mL (0-100) LFT Test 07/10/24 10:15 Alanine Aminotransferase (ALT) 19 U/L (7-40) Alkaline Phosphatase 52 U/L (46-116) Aspartate Amino Transferase (AST) 26 U/L (13-40) Total Bilirubin 0.7 mg/dL (0.2-1.0) HgA1c, TSH Test 07/09/24 19:47 Thyroid Stimulating Hormone (TSH) 2.87 uIU/mL (0.55-4.78) Labs and/or images reviewed: Labs reviewed by me, Image(s) reviewed by me Assessment/Plan Assessment/Plan Acute on chronic respiratory failure Pulmonary Embolism-discharged on 07/06/2024 on Eliquis 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
[2024-07-10 18:59] LABS: INR 1.23 (0.9-1.15); Prothrombin Time 12.8 sec (9.3-11.8)
[2024-07-10 19:04] LABS: Partial Thromboplastin Time > 139.0 SEC (24.5-34.5)
[2024-07-10] MEDS: guaiFENesin-DM 100/10mg/5ml SYR PO PRN (22:06)
[2024-07-10 23:19] LABS: INR 1.19 (0.9-1.15); Partial Thromboplastin Time 36.5 SEC (24.5-34.5); Prothrombin Time 12.4 sec (9.3-11.8)
[2024-07-11] VITALS (8 sets, daily range): BP systolic 105–128; BP diastolic 69–78; PULSE 75–125; RESP 17–21; TEMP 97.3–98.1; O2SAT 91–97
[2024-07-11] MEDS: HEPARIN DRIP/D5W 100UNITS/ML 250 ML IV SCH (05:02)
[2024-07-11 05:57] LABS: Basophils # (auto) 0 10 ^3/uL (0-0.2); Basophils % (auto) 0.6 % (0.0-2.0); Eosinophils # (auto) 0.1 10 ^3/uL (0-0.8); Eosinophils % (auto) 1.1 % (0.0-7.0); Hematocrit 41.1 % (36.0-46.0); Hemoglobin 13.6 g/dL (12.2-16.2); Lymphocytes # (auto) 1.5 10 ^3/uL (0.4-5.4); Lymphocytes % (auto) 24.7 % (10.0-50.0); Mean Corpuscular Hemoglobin 31.1 pg (28.0-32.0); Monocytes # (auto) 0.8 10 ^3/uL (0-1.3); Monocytes % (auto) 13.8 % (0.0-12.0); Neutrophils # (auto) 3.6 10 ^3/uL (1.6-8.6); Neutrophils % (auto) 59.8 % (37.0-80.0); Nucleated Red Blood Cells % 0.4 %; Platelet Count (auto) 239 10^3/uL (140-450); Red Blood Cells 4.37 10^6/uL (4.0-5.20); Red Cell Distribution Width 14.4 % (11.8-14.3)
[2024-07-11 06:36] LABS: INR 1.12 (0.9-1.15); Partial Thromboplastin Time 29.1 SEC (24.5-34.5); Prothrombin Time 11.7 sec (9.3-11.8)
--- NOTE | 2024-07-11 09:07 | DVHINCON2 ---
Date of service: Jul 11, 2024 History of Present Illness HPI Patient is a 89-year-old female who presented with shortness of breath. It is of note that the patient was in hospital few weeks back and was diagnosed with pulmonary emboli. It seems that after discharge, the patient did not receive the prescribed medications. In previous visits, the patient was on sotalol/metoprolol/digoxin and full anticoagulation. She is poor historian and elderly. Cardiology was involved for cardiac aspects of care. Home Meds Active Scripts Apixaban Base (ELIQUIS) 2.5 Mg Tab, 2.5 MG PO BID for 30 Days, #60 TAB Prov:RONAK ROMERO MD 07/06/24 Apixaban Base (Eliquis Starter Pack) 5 Mg Tab, 5 MG PO BID for 7 Days, #14 TAB Prov:RONAK ROMERO MD 07/06/24 Reported Medications Amitriptyline Hcl (Amitriptyline Hcl) 25 Mg Tab, 25 MG PO DAILY, TAB 07/10/24 Dicyclomine Hcl (BENTYL CAPSULE) 10 Mg Cp, 10 MG PO TID, CAP 07/10/24 Temazepam (Restoril) 15 Mg Cp, 15 MG PO HS, CAP 07/10/24 Amlodipine Besylate (NORVASC TABLET) 5 Mg Tb, 2.5 MG PO DAILY, TAB 07/10/24 Dexamethasone (Dexamethasone) 4 Mg Tab, 4 MG PO BID, TAB 07/10/24 Tramadol Hcl (Tramadol Hcl) 50 Mg Tab, 50 MG PO Q6HPRN PRN for pain, TAB 07/10/24 Methylprednisolone (Medrol) 4 Mg Tb, 4 MG PO, TAB 07/10/24 Senna (Senokot) 8.6 Mg Tab, 8.6 MG PO HS, TAB 07/10/24 Morphine Sulfate (Morphine Sulfate) 30 Mg Tab, 20 MG PO Q2HPRN PRN for pain, TAB 07/10/24 Ondansetron HCl (Ondansetron) 4 Mg Tab, 4 MG PO Q6HP PRN for NAUSEA / VOMITING, TAB 07/10/24 Ibuprofen (Ibuprofen) 400 Mg Tab, 200 MG PO Q8HP PRN for pain, TAB 07/10/24 Zinc Sulfate (Zinc Sulfate) 220 Mg Tab, 220 MG PO DAILY, TAB 07/10/24 Albuterol Sulfate (Albuterol Sulfate) 0.083 % Neb, 0.083 % IN Q6HPRN PRN for SHORTNESS OF BREATH, INH 07/10/24 Linaclotide Base (LINZESS) 290 Mcg Cap, 1 CAP PO DAILY for 60 Days, #60 07/06/24 Cholestyramine (Cholestyramine) Pow, 4 GM PO DAILY for 30 Days, #30 07/06/24 Potassium Chloride (Potassium Chloride ER) 10 Meq Tab, 1 TAB PO DAILY for 30 Days, #30 07/06/24 Cholecalciferol (VITAMIN D3) 2,000 Unit Tab, 25 MG PO DAILY, TAB 07/25/21 Gabapentin (Gabapentin) 300 Mg Cap, 100 MG PO BID for 30 Days, MG 03/13/21 Furosemide (Furosemide) 40 Mg Tab, 40 MG PO DAILY for 30 Days 03/13/21 Pravastatin Sodium (PRAVACHOL TABLET) 20 Mg Tb, 1 TAB PO HS for 30 Days, #30 05/29/20 Sotalol Hcl (Sotalol Hcl (Af)) 80 Mg Tab, 1 TAB PO DAILY for 30 Days, #60 05/29/20 Ascorbic Acid (VITAMIN C TABLET) 500 Mg Tb, 1 TAB PO DAILY, #30 TAB 3 Refills 05/29/20 Levothyroxine Sodium (Levothyroxine Sodium) 112 Mcg Tab, 1 TAB PO DAILY for 30 Days, #30 05/29/20 Pantoprazole Sodium Sesquihydr (Protonix) 40 Mg Tab, 40 MG PO DAILY, #30 TAB 05/29/20 Discontinued Reported Medications Rivaroxaban (Xarelto Tablet) 15 Mg Tb, 1 TAB PO DAILY for 30 Days, #30 03/13/21 Past Medical History Others Past medical history includes pulmonary emboli, atrial fibrillation, diastolic heart failure, GERD, hypertension, hyperlipidemia, hypothyroidism, status post appendectomy/cholecystectomy/thyroidectomy/tonsillectomy. She does have Biotronik pacemaker implanted from before. She does have poor compliance. Family History: No pertinent Hx Patient Family History: FH: congestive heart failure G8 MOTHER FH: myocardial infarction G8 FATHER Family history: Cardiovascular disease G8 MOTHER G8 FATHER Smoker: No Hx (Negative) Alocohol: None Drugs: None Review of Systems Constitutional: Weakness Ears, Nose, & Throat: No symptom reported Eyes: No symptom reported Pulmonary/Respiratory: Dyspnea Cardiovascular: Palpitations All Other Systems 14 point review of system was performed. Relevant findings as per above and as per HPI. Otherwise negative. H&P Exam Vital Signs Vital Signs Date Time Temp Pulse Resp B/P (MAP) Pulse Ox O2 Delivery O2 Flow Rate FiO2 07/11/24 08:00 95 17 97 Nasal Cannula* 2 28 07/11/24 05:00 97.3 105/69 (81) 97.3 General Appeara: Well developed Eye Exam: bilateral eye PERRL Mouth: Dry mouth Pulmonary/Respiratory: Rhonci Cardiovascular/Chest: Systolic murmur, Irregularly irregular Peripheral Pulses: 2+ carotid (R), 2+ carotid (L), 2+ femoral (R), 2+ femoral (L), 2+ dorsalis pedis (R), 2+ dorsalis pedis (L), 2+ Radial (R), 2+ Radial (L) Abdominal Exam: Normal bowel sounds, Soft Neuro/Mental St: Alert Labs/Xrays Labs Test 07/11/24 05:30 07/11/24 04:38 07/10/24 10:15 07/09/24 19:47 Range/Units Prothrombin Time 11.7 9.3-11.8 sec Prothrombin Time INR 1.12 0.9-1.15 Activated Partial Thromboplast Time 29.1 24.5-34.5 SEC White Blood Count 6.0 4.4-10.8 10^3/uL Red Blood Count 4.37 4.0-5.20 10^6/uL Hemoglobin 13.6 12.2-16.2 g/dL Hematocrit 41.1 36.0-46.0 % Mean Corpuscular Volume 94.0 80.0-100.0 fL Mean Corpuscular Hemoglobin 31.1 28.0-32.0 pg Mean Corpuscular Hemoglobin Concent 33.0 32.0-36.0 g/dL Red Cell Distribution Width 14.4 H 11.8-14.3 % Platelet Count 239 140-450 10^3/uL Mean Platelet Volume 8.0 6.9-10.8 fL Neutrophils (%) (Auto) 59.8 37.0-80.0 % Lymphocytes (%) (Auto) 24.7 10.0-50.0 % Monocytes (%) (Auto) 13.8 H 0.0-12.0 % Eosinophils (%) (Auto) 1.1 0.0-7.0 % Basophils (%) (Auto) 0.6 0.0-2.0 % Neutrophils # (Auto) 3.6 1.6-8.6 10 ^3/uL Lymphocytes # (Auto) 1.5 0.4-5.4 10 ^3/uL Monocytes # (Auto) 0.8 0-1.3 10 ^3/uL Eosinophils # (Auto) 0.1 0-0.8 10 ^3/uL Basophils # (Auto) 0 0-0.2 10 ^3/uL Nucleated Red Blood Cells 0.4 % Sodium Level 139 136-145 mmol/L Potassium Level 3.3 L 3.5-5.1 mmol/L Chloride Level 102 98-107 mmol/L Carbon Dioxide Level 27 20-31 mmol/L Anion Gap 10 5-15 Blood Urea Nitrogen 8 L 9-23 mg/dL Creatinine 0.57 0.550-1.02 mg/dL Glomerular Filtration Rate Calc 87 >90 mL/min BUN/Creatinine Ratio 14.0 10.0-20.0 Serum Glucose 181 H 74-106 mg/dL Calcium Level 9.1 8.7-10.4 mg/dL Total Bilirubin 0.7 0.2-1.0 mg/dL Aspartate Amino Transferase (AST) 26 13-40 U/L Alanine Aminotransferase (ALT) 19 7-40 U/L Alkaline Phosphatase 52 46-116 U/L Total Protein 5.7 5.7-8.2 g/dL Albumin 3.4 3.2-4.8 g/dL Troponin I High Sensitivity 4 </=34 ng/L Thyroid Stimulating Hormone (TSH) 2.87 0.55-4.78 uIU/mL Test 07/09/24 18:36 Range/Units B-Type Natriuretic Peptide 112.39 0-100 pg/mL Microbiology Date/Time Source Procedure Growth Status 07/10/24 06:00 Nose MRSA Screen - Final Complete Assessment/Plan Plan Patient is a 89-year-old female who presented with shortness of breath. It is of note that the patient was in hospital few weeks back and was diagnosed with pulmonary emboli. It seems that after discharge, the patient did not receive the prescribed medications. In previous visits, the patient was on sotalol/metoprolol/digoxin and full anticoagulation. She is poor historian and elderly. Cardiology was involved for cardiac aspects of care. On arrival to the hospital, the patient had atrial fibrillation with RVR. She denies chest pain/shortness of breath. Does have Biotronik pacemaker. Does have baseline history of atrial fibrillation. Her compliance to medications is questionable. Lying flat in bed. Mucosa is dry. No JVD. No carotid bruit. Lungs are clear to auscultation. Cardiac: Irregular. No thrill. Abdomen is soft. There is no gross mass. Extremities do not reveal edema pale dorsalis pedis is 1+ bilateral. Past medical history includes pulmonary emboli, atrial fibrillation, diastolic heart failure, GERD, hypertension, hyperlipidemia, hypothyroidism, status post appendectomy/cholecystectomy/thyroidectomy/tonsillectomy. She does have Biotronik pacemaker implanted from before. She does have poor compliance. Echocardiogram of July 04 2024 revealed ejection fraction of 65%, mild right ventricular enlargement with normal systolic function. Pacing wire was seen in right-sided chambers. Irrq-[id number] tricuspid regurgitation and right ventricular systolic pressure of 53 mm Hg Echocardiogram of May 2022 at recorded ejection fraction of 72%, mild left atrial enlargement, trace MR/TR and right ventricular systolic pressure of 35 mm Hg. Left heart catheterization of March 2021 had reported nonobstructive coronary artery disease. Creatinine: 0.64 - 0.57 Potassium: 3.7 - 3.3 BNP: 112.39 Troponin (high sensitive): 3 - 4 TSH: 2.87 Chest x-ray revealed:IMPRESSION: Mild pulmonary vascular congestion. EKG revealed atrial fibrillation with RVR Tele reveals atrial fibrillation Patient is a 89-year-old female who has baseline poor functional capacity and compliance who presented with shortness of breath. Does have recent diagnosis of pulmonary emboli. Reportedly has not been compliant with medications since discharge. Does have baseline history of atrial fibrillation and has not been taking her medications regularly. She was to be on Eliquis at the time of discharge but did not obtain the medicine from the pharmacy. Does have Biotronik it was last interrogated in June 2024 (recent admission). Shortness of breath Pulmonary emboli, recent A-fib with RVR Poor functional capacity Poor compliance Hypertension Hyperlipidemia Status post pacemaker implantation secondary to sick sinus syndrome Cardiac suggestion for management: Manage on telemetry Fluid resuscitation Full anticoagulation (consider starting Eliquis) Follow-up electrolytes and kidney function test and correct abnormalities Restart baseline medications (sotalol/digoxin/metoprolol tartrate) Request for digoxin level Further evaluation and management depends on the above and clinical course Thank you for consultation A total of 75 minutes was spent reviewing the patient record, examining the patient, making a diagnostic and therapeutic plan, discussing this plan with medical personnel, following up on diagnostic studies and following the patient for clinical stability excluding any and all procedures. At least 50% of this time was spent in direct, [id number] contact. Thank you for allowing me to participate in this patient's care. Further recommendations will depend on patient's clinical course. Please do not hesitate to contact me if you have any questions or concerns. This medical document was created using electronic medical record system with [employer] computerized dictation system. Although this document has been carefully reviewed, there may still be some phonetic and typographical errors. These areas are purely typographical due to the imperfection of the software programs, and do not reflect any compromise in the patient's medical care. Plan discussed with: Patient, Other (nurse) MARCO ANTONIO LAMB MD Jul 11, 2024 09:07
[2024-07-11] MEDS ORDERED: METOPROLOL TARTRATE 25 MG TAB PO SCH (10:00)
[2024-07-11] MEDS: SOTALOL HCL 80 MG TAB PO SCH (10:24)
[2024-07-11] MEDS: DIGOXIN 0.125 MG TAB PO SCH (10:24)
[2024-07-11] MEDS: APIXABAN 5 MG TAB PO SCH (10:25)
[2024-07-11] MEDS: HEPARIN SODIUM (PORCINE) 5000 UNITS/ML 1ML VIAL IV ONE (10:29)
--- NOTE | 2024-07-11 17:04 | DVHPN2 ---
Subjective Seen and examined at bedside, was recently discharged on Eliquis. Patient is on hospice at home, unsure why patient came back to the ED. Reviewed: Care Plan, H&P, Labs, Medications, Previous Orders, Radiology Changes from previous H/P or p: No Changes Eyes: No Pain, No Vision change, No Conjunctivae inflammation, No Eyelid inflammation, No Other, No Redness ENT: No Ear pain, No Ear discharge, No Nose pain, No Nose discharge, No Nose congestion, No Mouth pain, No Mouth swelling, No Throat pain, No Throat swelling, No Other Cardiovascular: No Chest Pain, No Palpitations, No Orthopnea, No Paroxysmal Noc. Dyspnea, No Edema, No Lt Headedness, No Other Respiratory: Cough; No Dry; Shortness of breath; No SOB with excertion, No Wheezing, No Hemoptysis, No Pleuritic Pain, No Sputum, No Other Gastrointestinal: No Nausea, No Vomiting, No Abdominal Pain, No Diarrhea, No Constipation, No Melena, No Hematochezia, No Other Genitourinary: No Dysuria, No Frequency, No Incontinence, No Hematuria, No Retention, No Other Musculoskeletal: No other, No neck pain, No shoulder pain, No arm pain, No back pain, No hand pain, No leg pain, No foot pain Skin: No Rash, No Lesions, No Jaundice, No Bruising, No Other Objective Vitals Vital Signs Date Time Temp Pulse Resp B/P (MAP) Pulse Ox O2 Delivery O2 Flow Rate FiO2 07/11/24 10:25 120 128/74 07/11/24 09:00 97.4 18 93 97.4 07/11/24 08:00 Nasal Cannula* 2 28 Intake/Output Intake and Output 07/11/24 07:00 Intake Total 1400 ml Output Total 400 ml Balance 1000 ml Intake Oral 1400 ml Output Urine Total 400 ml # Voids 1 Exam Gen: in bed NAD Cvs: N S1/S2, RRR Resp: Creps Abd: Soft, NT, BS+ Manager College: [employer] x 4 Medications Current Medications Medications Dose Ordered Sig/Fracnisco J Route Start Time Stop Time Status Last Admin Dose Admin Levothyroxine Sodium 112 mcg QAM@0600 PO 07/10/24 06:00 07/11/24 05:02 112 MCG Furosemide 20 mg DAILY IV 07/10/24 10:00 07/10/24 09:47 20 MG Gabapentin 300 mg BID PO 07/10/24 10:00 07/11/24 10:23 300 MG Sodium Chloride 10 ml Q8HR IV 07/10/24 06:00 07/11/24 14:00 10 ML Acetaminophen/ Hydrocodone Bitart 1 tab Q4HP PRN PO 07/10/24 00:00 07/10/24 04:46 1 TAB Ondansetron HCl 4 mg Q4HP PRN IV 07/10/24 00:00 Docusate Sodium 100 mg BIDPRN PRN PO 07/10/24 00:00 Acetaminophen 650 mg Q6HP PRN PO 07/10/24 00:00 Nitroglycerin 0.4 mg Q5MINP PRN SL 07/10/24 01:45 Morphine Sulfate 2 mg Q30M PRN IV 07/10/24 01:45 Carvedilol 12.5 mg Q12HR PO 07/10/24 10:00 Hold 07/11/24 10:25 12.5 MG Guaifenesin/ Dextromethorphan 10 ml Q6HPRN PRN PO 07/10/24 22:00 07/11/24 10:22 10 ML Apixaban 5 mg BID PO 07/11/24 10:00 07/11/24 10:25 5 MG Sotalol HCl 80 mg Q12HR PO 07/11/24 10:00 07/11/24 10:24 80 MG Metoprolol Tartrate 25 mg BID PO 07/11/24 10:00 Hold Digoxin 0.25 mg DAILY PO 07/11/24 10:00 07/11/24 10:24 0.25 MG Laboratory Results Laboratory Tests 07/10/24 10:15 07/11/24 04:38 Coagulation Test 07/10/24 18:13 07/10/24 20:53 07/11/24 05:30 Prothrombin Time 12.8 sec (9.3-11.8) H 12.4 sec (9.3-11.8) H 11.7 sec (9.3-11.8) Prothrombin Time INR 1.23 (0.9-1.15) H 1.19 (0.9-1.15) H 1.12 (0.9-1.15) Activated Partial Thromboplast Time > 139.0 SEC (24.5-34.5) *H 36.5 SEC (24.5-34.5) H 29.1 SEC (24.5-34.5) Microbiology Microbiology Date/Time Source Procedure Growth Status 07/10/24 06:00 Nose MRSA Screen - Final Complete Assessment/Plan Assessment/Plan # A-Fibb with RVR - Rate control # Acute Resp Failure - Titrate Oxygen # Recent PE - On Eliquis # Bedbound critical care time 38 mins Plan discussed with: Patient Date of Service: Jul 11, 2024 Billing Provider: RONAK ROMERO MD Common Visit Codes: [id number] CARE 30-74 MIN RONAK ROMERO MD Jul 11, 2024 17:03
[2024-07-11] MEDS: POTASSIUM CHL 20 Meq TABLET PO ONE (18:46)
[2024-07-12 01:00] VITALS: BP 105/73; PULSE 112; RESP 18; TEMP 97.8; O2SAT 93
[2024-07-12 05:00] VITALS: BP 98/70; PULSE 82; RESP 18; TEMP 97.6; O2SAT 92
--- NOTE | 2024-07-12 07:38 | DVHPN2 ---
Progress Note - Dictate Date Seen: Jul 12, 2024 Medical Necessity Reason Pt with a Central, PICC or Fol: No vital signs Vital Sign Date Time Temp Pulse Resp B/P (MAP) Pulse Ox O2 Delivery O2 Flow Rate FiO2 07/12/24 05:00 97.6 82 18 98/70 (79) 92 97.6 07/11/24 20:00 Room Air* 2 N/A Nasal Cannula* Total Intake and Output 07/11/24 07/11/24 07/12/24 15:00 23:00 07:00 Intake Total 300 ml 850 ml 1600 ml Output Total 2000 ml Balance 300 ml 850 ml -400 ml medications Current Medications Medications Dose Ordered Sig/Francisco J Route Start Time Stop Time Status Last Admin Dose Admin Levothyroxine Sodium 112 mcg QAM@0600 PO 07/10/24 06:00 07/12/24 05:42 112 MCG Furosemide 20 mg DAILY IV 07/10/24 10:00 07/10/24 09:47 20 MG Gabapentin 300 mg BID PO 07/10/24 10:00 07/11/24 21:24 300 MG Sodium Chloride 10 ml Q8HR IV 07/10/24 06:00 07/12/24 05:42 10 ML Acetaminophen/ Hydrocodone Bitart 1 tab Q4HP PRN PO 07/10/24 00:00 07/10/24 04:46 1 TAB Ondansetron HCl 4 mg Q4HP PRN IV 07/10/24 00:00 Docusate Sodium 100 mg BIDPRN PRN PO 07/10/24 00:00 Acetaminophen 650 mg Q6HP PRN PO 07/10/24 00:00 Nitroglycerin 0.4 mg Q5MINP PRN SL 07/10/24 01:45 Morphine Sulfate 2 mg Q30M PRN IV 07/10/24 01:45 Carvedilol 12.5 mg Q12HR PO 07/10/24 10:00 Hold 07/11/24 10:25 12.5 MG Guaifenesin/ Dextromethorphan 10 ml Q6HPRN PRN PO 07/10/24 22:00 07/12/24 00:56 10 ML Apixaban 5 mg BID PO 07/11/24 10:00 07/11/24 21:23 5 MG Sotalol HCl 80 mg Q12HR PO 07/11/24 10:00 07/11/24 21:23 80 MG Metoprolol Tartrate 25 mg BID PO 07/11/24 10:00 Hold Digoxin 0.25 mg DAILY PO 07/11/24 10:00 07/11/24 10:24 0.25 MG laboratory and microbiology Laboratory Tests 07/11/24 04:38 07/10/24 10:15 Test 07/10/24 10:15 Range/Units Serum Glucose 181 H 74-106 mg/dL Assessment/Plan Patient is a 89-year-old female who presented with shortness of breath. It is of note that the patient was in hospital few weeks back and was diagnosed with pulmonary emboli. It seems that after discharge, the patient did not receive the prescribed medications. In previous visits, the patient was on sotalol/metoprolol/digoxin and full anticoagulation. She is poor historian and elderly. Cardiology was involved for cardiac aspects of care. On arrival to the hospital, the patient had atrial fibrillation with RVR. She denies chest pain/shortness of breath. Does have Biotronik pacemaker. Does have baseline history of atrial fibrillation. Her compliance to medications is questionable. Lying flat in bed. Mucosa is dry. No JVD. No carotid bruit. Lungs are clear to auscultation. Cardiac: Irregular. No thrill. Abdomen is soft. There is no gross mass. Extremities do not reveal edema pale dorsalis pedis is 1+ bilateral. Past medical history includes pulmonary emboli, atrial fibrillation, diastolic heart failure, GERD, hypertension, hyperlipidemia, hypothyroidism, status post appendectomy/cholecystectomy/thyroidectomy/tonsillectomy. She does have Biotronik pacemaker implanted from before. She does have poor compliance. Echocardiogram of July 04 2024 revealed ejection fraction of 65%, mild right ventricular enlargement with normal systolic function. Pacing wire was seen in right-sided chambers. Bblu-[id number]-[id number] tricuspid regurgitation and right ventricular systolic pressure of 53 mm Hg Echocardiogram of May 2022 at recorded ejection fraction of 72%, mild left atrial enlargement, trace MR/TR and right ventricular systolic pressure of 35 mm Hg. Left heart catheterization of March 2021 had reported nonobstructive coronary artery disease. Creatinine: 0.64 - 0.57 Potassium: 3.7 - 3.3 BNP: 112.39 Troponin (high sensitive): 3 - 4 TSH: 2.87 Chest x-ray revealed:IMPRESSION: Mild pulmonary vascular congestion. EKG revealed atrial fibrillation with RVR Tele reveals atrial fibrillation Patient is a 89-year-old female who has baseline poor functional capacity and compliance who presented with shortness of breath. Does have recent diagnosis of pulmonary emboli. Reportedly has not been compliant with medications since discharge. Does have baseline history of atrial fibrillation and has not been taking her medications regularly. She was to be on Eliquis at the time of discharge but did not obtain the medicine from the pharmacy. Does have Biotronik it was last interrogated in June 2024 (recent admission). Shortness of breath Pulmonary emboli, recent A-fib with RVR Poor functional capacity Poor compliance Hypertension Hyperlipidemia Status post pacemaker implantation secondary to sick sinus syndrome Cardiac suggestion for management: Manage on telemetry Fluid resuscitation Full anticoagulation (consider starting Eliquis) Follow-up electrolytes and kidney function test and correct abnormalities Restarted on baseline medications (sotalol/digoxin) Request for digoxin level Further evaluation and management depends on the above and clinical course A total of 55 minutes was spent reviewing the patient record, examining the patient, making a diagnostic and therapeutic plan, discussing this plan with medical personnel, following up on diagnostic studies and following the patient for clinical stability excluding any and all procedures. At least 50% of this time was spent in direct, [id number] contact. Thank you for allowing me to participate in this patient's care. Further recommendations will depend on patient's clinical course. Please do not hesitate to contact me if you have any questions or concerns. This medical document was created using electronic medical record system with [employer] computerized dictation system. Although this document has been carefully reviewed, there may still be some phonetic and typographical errors. These areas are purely typographical due to the imperfection of the software programs, and do not reflect any compromise in the patient's medical care. Plan discussed with: Patient, Other (nurse) MARCO ANTONIO LAMB MD Jul 12, 2024 07:38
[2024-07-12 08:00] VITALS: PULSE 68; PULSE 86; RESP 16; O2SAT 95
[2024-07-12 08:52] VITALS: BP 110/70; PULSE 89; RESP 18; TEMP 97.9; O2SAT 94
[2024-07-12 09:42] LABS: Basophils # (auto) 0 10 ^3/uL (0-0.2); Basophils % (auto) 0.8 % (0.0-2.0); Eosinophils # (auto) 0.1 10 ^3/uL (0-0.8); Hematocrit 43.4 % (36.0-46.0); Hemoglobin 14.4 g/dL (12.2-16.2); Lymphocytes # (auto) 1.6 10 ^3/uL (0.4-5.4); Lymphocytes % (auto) 25.5 % (10.0-50.0); Mean Corpuscular Hemoglobin 31.3 pg (28.0-32.0); Mean Corpuscular Hgb Conc. 33.3 g/dL (32.0-36.0); Mean Corpuscular Volume 93.9 fL (80.0-100.0); Monocytes % (auto) 15.4 % (0.0-12.0); Neutrophils # (auto) 3.6 10 ^3/uL (1.6-8.6); Neutrophils % (auto) 57.3 % (37.0-80.0); Nucleated Red Blood Cells % 0.2 %; Platelet Count (auto) 286 10^3/uL (140-450); Red Blood Cells 4.62 10^6/uL (4.0-5.20); White Blood Cell 6.3 10^3/uL (4.4-10.8)
[2024-07-12 09:52] LABS: Alanine Aminotransferase 14 U/L (7-40); Anion Gap 7 (5-15); BUN/Creatinine Ratio 14.9 (10.0-20.0); Calcium 9.6 mg/dL (8.7-10.4); Carbon Dioxide 27 mmol/L (20-31); Chloride 105 mmol/L (98-107); Potassium 3.9 mmol/L (3.5-5.1); Sodium 139 mmol/L (136-145); Total Protein 5.9 g/dL (5.7-8.2)
[2024-07-12 09:53] LABS: Albumin 3.5 g/dL (3.2-4.8); Aspartate Aminotransferase 15 U/L (13-40)
[2024-07-12 09:54] LABS: Bilirubin, Total 0.7 mg/dL (0.2-1.0)
[2024-07-12 09:55] LABS: Blood Urea Nitrogen 7 mg/dL (9-23); Glucose 110 mg/dL (74-106)
[2024-07-12 10:09] LABS: Alkaline Phosphatase 52 U/L (46-116)
[2024-07-12 13:42] VITALS: BP 111/72; PULSE 89; RESP 18; TEMP 97.8; O2SAT 93
[2024-07-12] MEDS ORDERED: MET25T PO (14:18)
[2024-07-12] MEDS ORDERED: DIGO1TAB48 PO (14:18)
--- NOTE | 2024-07-12 14:19 | DVHDS2 ---
Discharge Summary Date of Admission Jul 10, 2024 at 01:31 Date of Discharge: Jul 12, 2024 Admitting Diagnosis A-Fibb with RVR Labs/Diagnostic Data: Laboratory Results Test 07/12/24 09:14 07/11/24 05:30 07/09/24 19:47 07/09/24 18:36 White Blood Count 6.3 10^3/uL (4.4-10.8) Red Blood Count 4.62 10^6/uL (4.0-5.20) Hemoglobin 14.4 g/dL (12.2-16.2) Hematocrit 43.4 % (36.0-46.0) Mean Corpuscular Volume 93.9 fL (80.0-100.0) Mean Corpuscular Hemoglobin 31.3 pg (28.0-32.0) Mean Corpuscular Hemoglobin Concent 33.3 g/dL (32.0-36.0) Red Cell Distribution Width 14.0 % (11.8-14.3) Platelet Count 286 10^3/uL (140-450) Mean Platelet Volume 8.2 fL (6.9-10.8) Neutrophils (%) (Auto) 57.3 % (37.0-80.0) Lymphocytes (%) (Auto) 25.5 % (10.0-50.0) Monocytes (%) (Auto) 15.4 % (0.0-12.0) Eosinophils (%) (Auto) 1.0 % (0.0-7.0) Basophils (%) (Auto) 0.8 % (0.0-2.0) Neutrophils # (Auto) 3.6 10 ^3/uL (1.6-8.6) Lymphocytes # (Auto) 1.6 10 ^3/uL (0.4-5.4) Monocytes # (Auto) 1.0 10 ^3/uL (0-1.3) Eosinophils # (Auto) 0.1 10 ^3/uL (0-0.8) Basophils # (Auto) 0 10 ^3/uL (0-0.2) Nucleated Red Blood Cells 0.2 % Sodium Level 139 mmol/L (136-145) Potassium Level 3.9 mmol/L (3.5-5.1) Chloride Level 105 mmol/L (98-107) Carbon Dioxide Level 27 mmol/L (20-31) Anion Gap 7 (5-15) Blood Urea Nitrogen 7 mg/dL (9-23) Creatinine 0.47 mg/dL (0.550-1.02) Glomerular Filtration Rate Calc 92 mL/min (>90) BUN/Creatinine Ratio 14.9 (10.0-20.0) Serum Glucose 110 mg/dL (74-106) Calcium Level 9.6 mg/dL (8.7-10.4) Total Bilirubin 0.7 mg/dL (0.2-1.0) Aspartate Amino Transferase (AST) 15 U/L (13-40) Alanine Aminotransferase (ALT) 14 U/L (7-40) Alkaline Phosphatase 52 U/L (46-116) Total Protein 5.9 g/dL (5.7-8.2) Albumin 3.5 g/dL (3.2-4.8) Digoxin Level 0.63 ng/mL (0.8-2) Prothrombin Time 11.7 sec (9.3-11.8) Prothrombin Time INR 1.12 (0.9-1.15) Activated Partial Thromboplast Time 29.1 SEC (24.5-34.5) Troponin I High Sensitivity 4 ng/L (</=34) Thyroid Stimulating Hormone (TSH) 2.87 uIU/mL (0.55-4.78) B-Type Natriuretic Peptide 112.39 pg/mL (0-100) Other Laboratory Tests 07/12/24 09:14 Brief Hx & Hospital Course: Patient is a 89-year-old female who presented with shortness of breath. It is of note that the patient was in hospital few weeks back and was diagnosed with pulmonary emboli. It seems that after discharge, the patient did not receive the prescribed medications. In previous visits, the patient was on sotalol/metoprolol/digoxin and full anticoagulation. She is poor historian and elderly. Cardiology was involved for cardiac aspects of care. HR has returned back to baseline. Patient wishes to be discharged back home with hospice. Condition at Discharge: Poor Final Diagnosis/Problems List # A-Fibb with RVR - Rate control. Meds per Hospice # Acute Resp Failure - Titrate Oxygen # Recent PE - On Eliquis # Bedbound Discharge Disposition: Hospice - Home Discharge Statement: "Patient was advised to return to the ER or call 911 if any headaches, dizziness, shortness of breath, chest pain, abdominal pain, bleeding, fevers, or worsening of medical condition. Patient was counseled about treatment plan, medications, possible side effects, patientverbalized understanding. All questions were answered to the best of my ability. This discharge took greater then 30 minutes in planning, reviewing documentation, counseling the patient, and discussing with other team members." ASSESSMENT ASSESSMENT Assessment Date of Service: Jul 12, 2024 Billing Provider: RONAK ROMERO MD Common Visit Codes: 13192-[id number] DISCH DAY >30min RONAK ROMERO MD Jul 12, 2024 14:19
[2024-07-12 16:55] VITALS: BP 115/70; PULSE 86; RESP 18; TEMP 98; O2SAT 94
== END 2024-07-12 20:05 | disposition hospice, home (50) | DRG 189 ==
LOC: ER 17:00 → OVERFLOW 07-10 01:31 → TELE-WESTW 07-10 05:18
PROVIDERS: ADMIT Internal Medicine; ATTEND Internal Medicine
DX: J96.00 Acute respiratory failure, unspecified whether with hypoxia or hypercapnia (principal); I50.30 Unspecified diastolic (congestive) heart failure; I48.91 Unspecified atrial fibrillation; I11.0 Hypertensive heart disease with heart failure; I27.20 Pulmonary hypertension, unspecified; K21.9 Gastro-esophageal reflux disease without esophagitis; E03.9 Hypothyroidism, unspecified; I49.5 Sick sinus syndrome; E78.00 Pure hypercholesterolemia, unspecified; I36.1 Nonrheumatic tricuspid (valve) insufficiency; Z95.0 Presence of cardiac pacemaker; Z90.49 Acquired absence of other specified parts of digestive tract; Z90.710 Acquired absence of both cervix and uterus; Z79.01 Long term (current) use of anticoagulants; Z79.899 Other long term (current) drug therapy; Z88.0 Allergy status to penicillin; Z88.2 Allergy status to sulfonamides; Z79.84 Long term (current) use of oral hypoglycemic drugs; Z79.1 Long term (current) use of non-steroidal anti-inflammatories (NSAID); Z79.891 Long term (current) use of opiate analgesic; Z82.49 Family history of ischemic heart disease and other diseases of the circulatory system; Z91.148 Patient's other noncompliance with medication regimen for other reason; Z74.01 Bed confinement status; Z86.711 Personal history of pulmonary embolism
CPT/HCPCS: 36415; 71045; 80048; 80053; 80162; 83880; 84443; 84484; 85025; 85610; 85730; 87081; 93005; 96365; 96366; 96375; 96376; 99291; G0378